=== PATIENT | female | born 1955 | race Caucasian/White ===

== ENCOUNTER 2019-12-13 12:28 | Observation (INO) | payer MEDICARE, SELFPAY ==
[2019-12-13] VITALS (15 sets, daily range): BP systolic 104–138; BP diastolic 53–82; PULSE 77–91; RESP 18–26; TEMP 36.3–36.8; O2SAT 93–98; BMI 35.7
--- NOTE | ~2019-12-13 | CT_ITS ---
EXAMINATION: CTA chest PE protocol EXAM DATE: 12/13/2019 13:59 INDICATION: Dyspnea. History pulmonary embolism. Unremarkable chest x-ray. TECHNIQUE: Spiral CTA of the chest (pulmonary arteries) was performed with 100 cc Omnipaque 350 intr avenous contrast injection. Images were acquired during the pulmonary arterial phase. Coronal maxi mum intensity projection 3D-reconstructions were created by the technologist on dedicated workstation . Axial, coronal and sagittal reformatted images were reviewed. The dose-length product (DLP) for t his examination was 835.67 mGy-cm. The exposure was tailored according to patient size (auto mA exp osure control), and iterative reconstruction (ASIR) was used as additional dose reduction technique. There is no prior study for comparison. FINDINGS: There are 3 right lower lobe segmental pulmonary emboli. No right heart strain. No thoraci c aortic dissection. Bibasilar subpleural banding, probably atelectasis. Mild emphysema. Mild bronch iectasis. There are no pleural or pericardial effusions. Tracheobronchial tree is patent. There is no mediastinal, hilar or axillary lymphadenopathy. There is no pneumothorax. Heart normal in s ize. No evidence of coronary arterial calcification. Upper abdomen is unremarkable. There is tho racic spondylosis without osteoblastic or osteolytic lesions identified. IMPRESSION: 1. Small right basilar segmental pulmonary emboli, low clot burden. 2. Subpleural banding, probably subsegmental atelectasis. 3. Mild emphysema and bronchiectasis. Reviewed, dictated and finalized at location A.
--- NOTE | ~2019-12-13 | XR_ITS ---
EXAMINATION: XR chest 2V EXAM DATE: 12/13/2019 13:10 INDICATION: Shortness of breath. TECHNIQUE: Frontal and lateral projections of the chest obtained and reviewed. Comparison is made to prior examination from 06/27/2019. FINDINGS: The lungs are clear. There are no pleural effusions. The cardiomediastinal silhouette is within normal limits. There is no pneumothorax suspected. The bones and soft tissues are unremarkab le. IMPRESSION: No acute cardiopulmonary findings. Reviewed, dictated and finalized at location A.
--- NOTE | ~2019-12-13 | US_ITS ---
EXAMINATION: US venous doppler [facility] DATE: 12/14/2019 11:16 INDICATION: Pulmonary embolism. TECHNIQUE: Grayscale ultrasound images without and with compression and Doppler ultrasound images of the bilateral lower extremity veins were obtained. COMPARISON: None. FINDINGS: Noncompressible deep venous thrombosis below the right knee in one of the paired right peroneal veins , both of the paired posterior tibial veins as well as the right soleus vein. The visualized portions of right common femoral vein, profunda (deep) femoral vein, femoral vein, popliteal vein, gastrocnem ius vein and greater saphenous vein outflow are patent. The visualized portions of left common femoral vein, profunda femoral vein, femoral vein, popliteal v ein, posterior tibial veins, peroneal veins, gastrocnemius vein and greater saphenous vein outflow ar e patent. 5.3 x 1.4 x 2.9 cm anechoic Ackerman's cyst at the left popliteal fossa. IMPRESSION: 1. Deep venous thrombosis below the right knee in the right peroneal, posterior tibial and soleal ve ins. No left-sided deep venous thrombosis. 2. Moderate-sized Ackerman cyst at the left popliteal fossa. Reviewed, dictated and finalized at location A. IMPRESSION: 1. Deep venous thrombosis below the right knee in the right peroneal, posterio r tibial and soleal veins. No left-sided deep venous thrombosis. 2. Moderate-sized Ackerman cyst at the left popliteal fossa.
--- NOTE | 2019-12-13 12:33 | ECG_ITS ---
Measurements Intervals [place] Rate: 89 P: 51 GA: 177 QRS: -4 QRSD: 93 T: 38 QT: 337 QTc: 410 Interpretive Statements SINUS RHYTHM INCOMPLETE RIGHT BUNDLE BRANCH BLOCK VOLTAGE CRITERIA FOR LVH INFERIOR INFARCT, AGE INDETERMINATE BASELINE ARTIFACT- II, III, AVF ABNORMAL ECG Electronically Signed On 12-13-2019 15:10:23 CDT by Javi Goode D.O.
[2019-12-13 12:54] LABS: Basophils Absolute Auto 0.1 K/mm3 (0.0-0.1); Basophils Percent Auto 0.6 % (0.2-1.2); Eosinophils Absolute Auto 0.3 K/mm3 (0-0.3); Eosinophils Percent Auto 1.6 % (0-4.4); Hematocrit 36.5 % (37.0-47.0); Hemoglobin 10.5 g/dL (12.0-15.0); Immature Granulocyte Absolute 0.19 K/mm3 (0.00-0.031); Immature Granulocyte Percent A 1.2 % (0-0.5); Lymphocytes Absolute Auto 2.15 K/mm3 (0.9-3.2); Lymphocytes Percent Auto 13.7 % (18.3-44.2); Mean Corpuscular HGB Conc 28.8 g/dl (32-36); Mean Corpuscular Hemoglobin 22.2 pg (26-34); Mean Corpuscular Volume 77.2 fl (80-100); Mean Platelet Volume 9.4 fl (7.4-10.4); Monocytes Absolute Auto 1.4 K/mm3 (0.1-0.6); Monocytes Percent Auto 8.8 % (2.6-8.5); Neutrophils Absolute Auto 11.7 K/mm3 (1.3-6.7); Neutrophils Percent Auto 74.1 % (45.5-73.1); Platelet Count Result 377 k/mm3 (150-375); Red Blood Count 4.73 M/mm3 (4.2-5.4); Red Cell Distribution Width 17.9 % (11.5-14.5); White Blood Count 15.8 K/mm3 (4.5-10.0)
[2019-12-13 12:59] LABS: Hypochromasia 1+ (NORMAL); Platelet Estimate Adequate (Adequate)
[2019-12-13 13:00] LABS: Ovalocytes 1+ (NORMAL); Poikilocytosis 1+ (NORMAL)
[2019-12-13 13:10] LABS: Blood Urea Nitrogen 18 mg/dL (7-17); Calcium 9.8 mg/dL (8.4-10.2); Carbon Dioxide 25 mmol/L (22-30); Chloride 105 mmol/L (98-107); Estimated CRCL calculation 62 ml/min; Estimated Glomerular Filt Rate > 60; Glucose 95 mg/dL (65-105); Potassium 4.6 mmol/L (3.4-5.0); Sodium 139 mmol/L (137-145)
--- NOTE | 2019-12-13 13:39 | ED.SOB ---
HPI - SOB/Dyspnea General Chief Complaint: Shortness of Breath/Dyspnea Stated Complaint: sob Time Seen by Provider: 12/13/19 13:10 Source: patient Mode of arrival: ambulatory Limitations: no limitations History of Present Illness HPI Narrative: Patient is a 64-year-old female who presents to the emergency department with complaint of shortness of breath. Patient notes having a syncopal episode associated with her shortness of breath. Patient is complaining of some mild low back pain that she intermittently has. She denies any chest pain, cough, fever, or symptoms while at rest. She notes the shortness of breath occurs with exertion such as walking from one room of her house to another. Patient denies any pulmonary or cardiac history. MD elicited complaint: shortness of breath Exacerbating factors: exertion Relieving factors: rest Associated symptoms: denies other symptoms Treatment prior to arrival: none Related Data Home Medications Medication Instructions Recorded Confirmed atorvastatin 12/13/19 bupropion HCl mg PO 12/13/19 buspirone 10 mg BID 12/13/19 12/13/19 escitalopram oxalate mg 12/13/19 fenofibrate mg 12/13/19 [id number]-lutein 1 tablet PO DAILY 12/13/19 12/13/19 [Multivitamin Women 50 Plus] oxybutynin chloride mg PO 12/13/19 pantoprazole PO 12/13/19 Allergies Allergy/AdvReac Type Severity Reaction Status Date / Time nitrofurantoin Allergy Intermediate CHILLS Verified 12/13/19 14:27 FEVER ITCHING NAUSEA, MOUTH SORES Sulfa (Sulfonamide Allergy Intermediate MOUTH SORE Verified 12/13/19 14:27 Antibiotics) HYDROCODONE BIT Allergy Intermediate MIGRAINE Uncoded 12/13/19 14:27 PROPOXYPHENE NAPSYLATE Allergy Intermediate MIGRAINE Uncoded 12/13/19 14:27 Review of Systems Review of Systems: All systems reviewed & are unremarkable except as noted in HPI and below Constitutional: Constitutional: Denies chills and Denies fever(s) Cardiovascular: Cardiovascular: Denies chest pain Respiratory: Respiratory: Denies cough and Reports dyspnea Gastrointestinal: Gastrointestinal: Denies nausea and Denies vomiting PMFSH Past Medical History Medical History (Updated 12/13/19 @ 15:22 by Shayla Joyner MD) Anxiety Depression Hyperlipidemia Osteoarthritis Surgical History Surgical History (Updated 12/13/19 @ 13:46 by Shayla Joyner MD) History of bilateral hip replacements History of hysterectomy Family History Family History (Updated 02/05/17 @ 15:47 by DOCTOR UNKNOWN) Father Family history of alcoholism Mother Cerebrovascular accident Other Family history of arthritis Hypertension Social History Social History Smoking status: Never smoker Alcohol intake: current Exam Const: General: cooperative, no acute distress and alert Nutritional Appearance: obese morbidly obese Orientation/consciousness: patient oriented x3 Limitations: no limitations Resp: Effort & Inspection: normal respiratory effort Auscultation: clear to auscultation bilaterally Cardio: Rate: regular rate Rhythm: regular rhythm GI: GI Palp: Yes Soft to palpation and No Tenderness to palpation present (GI) Auscultation: normal bowel sounds Skin: General skin exam: normal color Neuro: General: patient oriented x3 Cognition (Neuro): normal cognition Speech: normal speech Extrem: General: normal to inspection, full ROM and no clubbing, cyanosis or edema Psych: Mental Status: mental status grossly normal Affect: normal affect Attitude: cooperative Course Course Emergency Course: Patient with findings of pulmonary emboli on CT. Lovenox initiated in the emergency department and patient admitted to hospitalist service for further care. Patient advised of diagnosis and admission plan. Vital signs have remained stable and patient is satting in the low 90s on room air. Consultations Consultation #1: Case discussed with ALESHA Zhao for the ho
--- NOTE | 2019-12-13 14:05 | PC.NURSE ---
Called lab to add on Trop I Baseline and BNP.
[2019-12-13] MEDS: ENOXAPARIN 100 MG/ML SYRINGE 97.5 MG SUB-Q (14:22)
--- NOTE | 2019-12-13 16:05 | PM.IMHP ---
H&P: HPI History of Present Illness Chief complaint: Syncopal episode. Narrative: Maddie Abdi is a 64-year-old female with history of DVT and pulmonary embolism in 2001 and 2002 respectively after surgeries status post IVC filter insertion who presented to the emergency department earlier this afternoon from home for evaluation after a syncopal episode. Not long prior to arrival, she was walking into the bathroom when she began to feel lightheaded and ?everything went black.? She proceeded to have a syncopal episode, falling forward and injuring her right upper lip. In the emergency department, she admitted that she has been feeling short of breath since Saturday, mainly with exertion. She was found to have a small right basilar segmental pulmonary embolism, and is being admitted in this setting. As above, she reports an IVC filter in situ however the presence of such is not mentioned on the CT today. She does not believe that she had it removed, so I will have to go back and review the CT. In any event, her previous clots were in the postoperative setting. No recent travel. She does mention being more sedentary since the retirement in place order. She denies lower extremity edema, calf pain and tenderness. Weight has remained stable, in fact she thinks she may have gained some weight. No history of malignancy. It is noted that she has a microcytic anemia and she reports no history of such. She does mention being seen in emergency department June 2019 with chest pain, and that was attributed to GERD. She continues to have those symptoms to this day, for which she is taking pantoprazole She had a colonoscopy years ago which was unremarkable.. She denies epistaxis, gingival bleeding, hemoptysis, melena, hematochezia, vaginal bleeding, and hematuria. She does not use NSAIDs. She denies significant caffeine and alcohol intake. Review of Systems Review of Systems: Narrative: Twelve systems were reviewed with pertinent positives and negatives as per HPI. No fever, chills, or sweats. No recent cold or flu symptoms. She denies cough. No history of cardiac disease. No pleuritic pain. She denies nausea, vomiting, and diarrhea. Except as documented, all other systems were reviewed and are negative. [facility] Past Medical History Medical History (Updated 12/13/19 @ 21:38 by Milagros Brush PA-C) Anxiety Depression DVT (deep venous thrombosis) In 2001 after bunionectomy. GERD (gastroesophageal reflux disease) Hidradenitis Excision of hidradenitis from the left thigh in 2012. Hyperlipidemia Kidney stones Osteoarthritis Pulmonary embolism In 2002 after right hip replacement. Skin cancer MARLENE (stress urinary incontinence, female) Surgical History Surgical History (Updated 12/13/19 @ 21:34 by Milagros Brush PA-C) History of appendectomy History of bilateral hip replacements Right in 2002. Left in 2010. History of bunionectomy History of cataract extraction History of cholecystectomy History of hysterectomy Family History Family History Father Family history of alcoholism Mother Cerebrovascular accident Other Family history of arthritis Hypertension Social History Social History (Updated 12/13/19 @ 21:34 by Milagros Brush PA-C) Social History: The patient is and lives with her in [place]. She designates her , Chris, as her surrogate decision maker and she wishes to be a full code. She is a lifelong nonsmoker and denies alcohol and illicit substance use. Spiritual care concerns: No Agree to blood products: Yes Meds Home Medications and Allergies Home Medications Medication Instructions Recorded Confirmed Type atorvastatin 40 mg DAILY 12/13/19 12/13/19 History bupropion HCl 300 mg PO DAILY 12/13/19 12/13/19 History buspirone 10 mg BID 12/13/19 12/13/19 History escitalopram oxalate 20 mg DAILY 11/24
--- NOTE | 2019-12-13 16:27 | ADMGEN ---
This patient, Maddie Abdi, was admitted to [facility] Surg Room 321-01 at 1530. Patient/family oriented to hospital policies and general routines including ID bracelet, bed and alarms, visiting hours, pain management, procedures, bathroom and other care routines, personal items, smoking policy, room service/diet, and visiting hours. Valuables list has been completed. Information on how to activate the Rapid Response Team has been discussed. Patient/Family are encouraged to report perceived risks to care and to ask questions if they do not understand what they are told or what they should do.
[2019-12-13 16:34] LABS: NT Pro B Type Natriuretic Pept 101 PG/ML (5-100); Troponin I < 0.012 ng/mL (0.000-0.034)
[2019-12-13 19:11] LABS: Troponin I < 0.012 ng/mL (0.000-0.034)
[2019-12-13 20:22] LABS: IFOB Positive Control Positive; Immunochemical Fecal Occult Bl Negative (N)
[2019-12-13 23:54] LABS: Folic Acid > 20.0 ng/mL (2.76->20); Vitamin B12 > 1000.0 pg/mL (239-931)
[2019-12-14] VITALS: PULSE 78
--- NOTE | 2019-12-14 | ECHO_ITS ---
Patient Info Name: Maddie Abdi Age: 64 years : 1955 Gender: Female Ht: 65 in Wt: 215 lbs BSA: 2.16 m2 HR: 76 bpm BP: 125 / 59 mmHg Heart Rhythm: Sinus Rhythm Technical Quality: Fair Exam Date: 12/14/2019 1:15 PM Exam Location: [facility] Card Pulmonary Patient Status: Inpatient Admit Date: 12/13/2019 Staff Ordering Physician: Milagros Brush PA-C Design Printer Balloon: Chris Carey RDCS Attending Provider: Alondra Truong PA-C Referring Physician: Trudi OBRIEN; Exam Type: CA echo doppler color flow Study Info Indications I26.99 - Other pulmonary embolism without acute cor pulmonale Complete two-dimensional, color flow and Doppler transthoracic echocardiogram is performed. History/Risk Factors Pulmonary embolism; DVT, HTN, syncope. Summary 1. Left ventricular chamber dimension is normal. 2. Left ventricular systolic function is normal, estimated at 55-60%. 3. No significant valvular disease. Left Ventricle Left ventricular chamber dimension is normal. Left ventricular systolic function is normal, estimated at 55-60%. The left ventricular diastolic function is grade I diastolic dysfunction. Right Ventricle Right ventricular chamber dimension is normal. Left Atria Left atrial chamber dimension is normal. Right Atria Right atrial chamber dimension is normal. Aortic Valve The aortic valve is normal. Pulmonic Valve The pulmonic valve is not well visualized. Mitral Valve The mitral valve has normal leaflets. Tricuspid Valve The tricuspid valve leaflets are normal. Pericardium/Pleural The pericardium appears normal. Aorta The aortic root size at the sinus of Valsalva is normal. Left Ventricular Outflow Tract Name Value Normal LVOT 2D LVOT Diameter 1.8 cm LVOT Doppler LVOT Peak Gradient 6 mmHg LVOT Mean Gradient 3 mmHg LVOT VTI 24 cm LVOT VTI/AV VTI Ratio 0.8 LVOT Stroke Volume 65 ml LVOT CO 5.2 l/min LVOT CI 2.4 l/min/m2 Mitral Valve Name Value Normal MV Doppler MV Decel Cooper 413 cm/s2 MV PHT 52 ms MV Area (PHT) 4.2 cm2 4.0-5.0 MV Diastolic Function MV E Peak Velocity 74 cm/s MV A Peak Velocity 92 cm/s MV E/A 0.8 MV Decel Time 179 ms MV Annular TDI MV E/e' (Septal) 10.8 <=8.0 MV E/e
[2019-12-14] MEDS: ENOXAPARIN 100 MG/ML SYRINGE 97.5 MG SUB-Q ×2 (02:03→15:11)
[2019-12-14 04:00] VITALS: PULSE 74
[2019-12-14 06:00] VITALS: BP 125/59; PULSE 72; RESP 22; TEMP 37.1; O2SAT 93
[2019-12-14 06:03] LABS: Prothrombin Time 13.3 Seconds (11.1-14.7)
[2019-12-14 06:04] LABS: Partial Thromboplastin Time 32.5 SECONDS (22.3-36.8)
[2019-12-14 06:08] LABS: Hematocrit 31.3 % (37.0-47.0); Hemoglobin 9.3 g/dL (12.0-15.0); Mean Corpuscular HGB Conc 29.7 g/dl (32-36); Mean Corpuscular Hemoglobin 22.4 pg (26-34); Mean Corpuscular Volume 75.4 fl (80-100); Mean Platelet Volume 9.4 fl (7.4-10.4); Platelet Count Result 338 k/mm3 (150-375); Red Blood Count 4.15 M/mm3 (4.2-5.4); Red Cell Distribution Width 17.8 % (11.5-14.5); White Blood Count 11.9 K/mm3 (4.5-10.0)
[2019-12-14 06:12] LABS: Alanine Aminotransferase 22 U/L (4-35); Albumin Level 3.7 g/dL (3.5-5.1); Alkaline Phosphatase 74 U/L (38-126); Aspartate Amino Transferase 28 U/L (14-36); Bilirubin,Total 0.2 mg/dL (0.2-1.3); Blood Urea Nitrogen 14 mg/dL (7-17); Calcium 9.2 mg/dL (8.4-10.2); Carbon Dioxide 27 mmol/L (22-30); Chloride 106 mmol/L (98-107); Estimated CRCL calculation 79 ml/min; Estimated Glomerular Filt Rate > 60; Glucose 81 mg/dL (65-105); Potassium 4.2 mmol/L (3.4-5.0); Sodium 137 mmol/L (137-145)
[2019-12-14 06:21] LABS: Iron 30 ug/dL (37-170)
[2019-12-14 06:30] LABS: Percent Iron Saturation 6 % (20-50)
[2019-12-14 06:57] LABS: Ferritin 7.49 ng/mL (11.1-264)
[2019-12-14 08:00] VITALS: PULSE 115
[2019-12-14] MEDS: buPROPion HCL XL (24 HR) 150 MG TABCR 300 MG PO (08:51)
[2019-12-14] MEDS: ATORVASTATIN 40 MG TABLET PO (08:51)
[2019-12-14] MEDS: busPIRone HCL 10 MG TABLET PO (08:51)
[2019-12-14] MEDS: FENOFIBRATE 160 MG TABLET PO (08:54)
[2019-12-14] MEDS: THERAPEUTIC MULTIVITAMINS/MINERALS TAB (*BKC) 1 TABLET PO (08:54)
[2019-12-14] MEDS: ESCITALOPRAM OXALATE 10 MG TABLET 20 MG PO (08:54)
[2019-12-14 12:00] VITALS: PULSE 78
[2019-12-14] MEDS: ACETAMINOPHEN 325 MG TABLET 650 MG PO (12:45)
[2019-12-14 14:00] VITALS: BP 102/74; PULSE 93; RESP 16; TEMP 36.9; O2SAT 92
--- NOTE | 2019-12-14 15:09 | PM.DS ---
DS: Diagnosis Admitting Diagnosis Admitting Diagnosis: Other pulmonary embolism without acute cor pulmonale Discharge Diagnosis (1) Pulmonary embolism: Code(s): I26.99 - Other pulmonary embolism without acute cor pulmonale Status: Acute Assessment and Plan: The patient was found to have a DVT to her right peroneal, posterior tibial and soleal veins. No left sided DVT. PE Caused by DVT and most likely increased sedentary lifestyle recently. She was initially started on Lovenox Q12hrs by weight for treatment of PE/DVT and it will cost her $47 per month for Eliquis through her insurance which the patient states will be okay. The patient is feeling well at this time and is asymptomatic. She was slightly tachycardic with exertion which will improve with continued PE/DVT treatment. No further syncopal episodes, lightheadedness, dizziness and shortness of breath has improved. (2) DVT (deep venous thrombosis): Code(s): I82.409 - Acute embolism and thrombosis of unspecified deep veins of unspecified lower extremity Status: Acute Assessment and Plan: See above under PE. (3) Syncope: Code(s): R55 - Syncope and collapse Status: Acute Assessment and Plan: Possibly related to PE/DVT Echocardiogram showed Left ventricular chamber dimension is normal. Left ventricular systolic function is normal, estimated at 55-60%. No significant valvular disease. Telemetry showed normal sinus rhythm with a heart rate of 80, with a few episodes where her heart rate went into the 120s to 140s most likely with exertion. This is again most likely secondary to PE/DVT. No further arrhythmia abnormality infection noted. (4) Microcytic anemia: Code(s): D50.9 - Iron deficiency anemia, unspecified Status: Acute Assessment and Plan: Was found to have iron deficiency anemia and was given IV Venofer today will be placed on oral ferrous sulfate twice a day and have her follow-up with her primary care provider and recheck a CBC in 1 week. H&H has otherwise been stable while here. Negative Hemoccult stool. Normal vitamin B12 and folic acid. (5) Bronchiectasis: Code(s): J47.9 - Bronchiectasis, uncomplicated Status: Acute Assessment and Plan: Mild emphysema and bronchiectasis noted on CT today. Lungs are otherwise clear to auscultation today with no wheezing. Follow-up as outpatient. (6) GERD (gastroesophageal reflux disease): Code(s): K21.9 - Gastro-esophageal reflux disease without esophagitis Status: Acute Assessment and Plan: Continue pantoprazole. (7) Hyperlipidemia: Code(s): E78.5 - Hyperlipidemia, unspecified Status: Acute Assessment and Plan: Continue atorvastatin and fenofibrate. DS: Summary Hospital Course Reason for hospitalization: Patient is a 64-year-old woman with a history of DVT and PE after prior joint replacement surgeries, with IVC filter in place, who presented to the emergency department with increased dyspnea on exertion for the last 5 days and 2 syncopal episode prior to arrival. Initial vitals showed temperature of 97.3?, blood pressure 104/82, heart rate 80, respiratory rate 18, oxygen saturation 98% on room air. Initial labs showed leukocytosis at 15,800, microcytic anemia with a hemoglobin of 10.5 and hematocrit of 36.5, normal BMP, normal troponin. BNP 101. Patient had a CTA performed which showed a small right basilar segmental pulmonary embolism, low clot burden. She was admitted into the hospital for further evaluation of pulmonary embol
== END 2019-12-14 17:00 | disposition home or self-care (01) ==
LOC: ANHED 13:43 → ANH3MEDSUR 14:46
PROVIDERS: Physician Assistant; Admitting Provider Internal Medicine; Emergency Provider Emergency Medicine; PCP Family Medicine Adolescent Medicine; Visit Provider Physician Assistant
DX: I26.99 Other pulmonary embolism without acute cor pulmonale (principal); I82.451 Acute embolism and thrombosis of right peroneal vein; R55 Syncope and collapse; D50.9 Iron deficiency anemia, unspecified; J47.9 Bronchiectasis, uncomplicated; J43.9 Emphysema, unspecified; K21.9 Gastro-esophageal reflux disease without esophagitis; E78.5 Hyperlipidemia, unspecified; Z86.711 Personal history of pulmonary embolism; Z86.718 Personal history of other venous thrombosis and embolism; Z96.643 Presence of artificial hip joint, bilateral
CPT/HCPCS: 36415; 71046; 71275; 80048; 80053; 82274; 82607; 82728; 82746; 83540; 83550; 83880; 84484; 85025; 85027; 85610; 85730; 93005; 93306; 93970; 96372; 96374; 99285; A9270; G0378; J1650; J1756; Q9967

== ENCOUNTER → 2021-02-17 14:41 | Outpatient (CLI) | payer MEDICARE, SELFPAY ==
--- NOTE | ~2021-02-17 | XR_ITS ---
XR chest 2V 02/17/2021 15:01 Indication: Dyspnea with exertion Procedure: 2 view chest Comparison: 12/13/2019 Findings: Heart size normal. No focal air space disease, pulmonary edema, pleural effusion or suspect ed pneumothorax. No acute osseous abnormality. Impression: 1: No acute cardiopulmonary disease. Reviewed, dictated and finalized at location B. Impression: 1: No acute cardiopulmonary disease.
== END ==
PROVIDERS: PCP Family Medicine Adolescent Medicine; Visit Provider Family Medicine Adolescent Medicine
DX: R06.09 Other forms of dyspnea (principal)
CPT/HCPCS: 71046

== ENCOUNTER 2021-03-15 12:22 | Outpatient (CLI) | payer MEDICARE, SELFPAY ==
--- NOTE | 2021-03-15 16:24 | WPDPFTINT ---
PFT Procedure Performed PFT Procedure Performed Plethysmography (Lung Vol) Diffusing Cap (DLCO) Flow Vol Loop Spirometry w/o Bronchodil PFT Interpretation This is a pulmonary function test with spirometry, plethysmography and diffusing capacity. The test was performed and results interpreted in accordance with the 2019 and 2005 ATS/ERS Task Force guidelines respectively using the Global Lung Function Initiative-2012 reference equations. Patient demonstrated good effort and cooperation. Reproducibility criteria were met. The quality of the spirometry maneuver was Grade A. Findings: Spirometry: The contour the expiratory flow tracing resembles that of a witch's hat . the contour the inspiratory flow tracing is normal. The FVC is 2.23 L, 73% predicted. The FEV1 is 1.85 L, 78% predicted. The FEV1: FVC ratio was 83%. Plethysmography: The total lung capacity is 3.54 L, 68% predicted. The functional residual capacity is 1.56 L, 52% predicted. The residual volume is 1.18 L, 54% predicted. Diffusing capacity: The absolute diffusion capacity is 14.0, 66% predicted. The diffusing capacity corrected for alveolar volume is 4.17, 97% predicted. Impression: There is a mild restrictive ventilatory abnormality with a normal FEV1. The spirometry is normal without evidence of an obstructive abnormality. The absolute diffusing capacity is mildly decreased and normalizes when corrected for alveolar volume. There are no prior studies for comparison
== END 2021-03-15 12:23 | disposition home or self-care (01) ==
LOC: ANHPFT 12:25
PROVIDERS: PCP Family Medicine Adolescent Medicine; Visit Provider Family Medicine Adolescent Medicine
DX: R06.09 Other forms of dyspnea (principal); R94.2 Abnormal results of pulmonary function studies
CPT/HCPCS: 94375; 94726; 94729

== ENCOUNTER 2021-04-11 03:04 | Day surgery (SDC) | payer MEDICARE, SELFPAY ==
[2021-04-04 14:04] VITALS: BMI 34.8
[2021-04-11 08:32] VITALS: BP 139/62; PULSE 93; RESP 18; TEMP 35.7; O2SAT 95
[2021-04-11] MEDS: LACTATED RINGERS 1,000 ML 150 ML IV CONT (08:38)
--- NOTE | 2021-04-11 09:37 | WPDANESEPPF ---
Anes - Initial Pre Proc Eval Procedure: Operation Date: 04/11/21 09:45 Proposed Procedures p Esophagogastroduodenoscopy & Colonoscopy - Abdiel Welch MD Date/Time: 04/11/21 09:37 Surgeon: Abdiel Welch MD Pre Op Diagnosis: occult GI bleed Patient Data Age: 65 Gender: F Height: 1.65 m Weight: 92 kg Last Vital Signs Temp 96.2 F L 04/11/21 08:32 Pulse 93 04/11/21 08:32 Resp 18 04/11/21 08:32 BP 139/62 04/11/21 08:32 Pulse Ox 95 04/11/21 08:32 Allergies Allergy/AdvReac Type Severity Reaction Status Date / Time hydrocodone Allergy Intermediate Migraine Verified 04/11/21 08:35 propoxyphene Allergy Intermediate Migraine Verified 04/11/21 08:35 Sulfa (Sulfonamide Allergy Intermediate MOUTH SORE Verified 04/11/21 08:29 Antibiotics) Home Medications Medication Instructions Recorded Confirmed Type Multivitamin Women 50 Plus 1 tablet PO DAILY 12/13/19 04/11/21 History atorvastatin 40 mg PO DAILY 12/13/19 04/11/21 History bupropion HCl 300 mg PO DAILY 12/13/19 04/11/21 History buspirone 10 mg PO BID 12/13/19 04/11/21 History escitalopram oxalate 20 mg PO DAILY 12/13/19 04/11/21 History fenofibrate 160 mg PO DAILY 12/13/19 04/11/21 History oxybutynin chloride 15 mg PO DAILY 12/13/19 04/11/21 History pantoprazole 40 mg PO BID 12/13/19 04/11/21 History ferrous sulfate [Feosol] 325 mg PO DAILY 04/04/21 04/11/21 History metoclopramide HCl 10 mg PO HS 04/04/21 04/11/21 History nitroglycerin 0.4 mg SUBLINGUAL HS PRN 04/04/21 04/11/21 History Patient hx anesthesia problems: none Family hx anesthesia problems: none PMFSH Past Medical History Medical History (Updated 12/14/19 @ 15:09 by Alondra Frances PA-C) Anxiety Depression DVT (deep venous thrombosis) In 2001 after bunionectomy. GERD (gastroesophageal reflux disease) Hidradenitis Excision of hidradenitis from the left thigh in 2012. Hyperlipidemia Kidney stones Osteoarthritis Pulmonary embolism In 2002 after right hip replacement. Skin cancer MARLENE (stress urinary incontinence, female) Surgical History Surgical History (Updated 12/13/19 @ 21:34 by Milagros Brush PA-C) History of appendectomy History of bilateral hip replacements Right in 2002. Left in 2010. History of bunionectomy History of cataract extraction History of cholecystectomy History of hysterectomy Family History Family History Father Family history of alcoholism Mother Cerebrovascular accident Other Family history of arthritis Hypertension Social History Social History (Updated 12/13/19 @ 21:34 by Milagros Brush PA-C) Social History: The patient is and lives with her in [place]. She designates her , Chris, as her surrogate decision maker and she wishes to be a full code. She is a lifelong nonsmoker and denies alcohol and illicit substance use. Smoking status: Never smoker Alcohol intake: never Substance use: never Substance use type: does not use Living arrangements: with family Spiritual care concerns: No Agree to blood products: Yes Anes - Eval Final PreProcedure Day of Procedure 04/11/21 09:37 Patient weight: obese Heart: regular rate and rhythm Lungs: clear to auscultation Airway: Mallampati scale class III Neurological: alert and oriented Last oral intake: >/= 8 hours ASA classification: III Emergent: no Anesthetic plan: proceed Anesthesia type and monitoring: general GIVS and standard monitoring Informed Consent: The patient's anesthetic plan and its attendant risks and benefits were discussed with the patient/family/POA. Questions were solicited and answers provided to the satisfaction of the patient/family/POA.
--- NOTE | 2021-04-11 09:51 | PM.HPGS ---
History of Present Illness History of Present Illness Consent: Risks, benefits, and alternatives have been discussed and questions answered. Patient agrees to proceed with procedure. Chief complaint: occult GI bleed Narrative: Maddie Abdi is a 65 year old female with mild GIN and FOBT +, on pantoprazole for 1 year because esophageal spasm but never had EGD, last colonoscopy 7 years ago. Denies overt gib Review of Systems Constitutional: Constitutional: Denies headache(s) and Denies weakness Eyes: Eyes: Denies blurry vision ENT: Reports Normal hearing present, Denies headache(s) and Denies neck pain Cardiovascular: Cardiovascular: Denies chest pain and Denies dyspnea Respiratory: Respiratory: Denies dyspnea Gastrointestinal: Gastrointestinal: Reports no additional gastrointestinal complaints Genitourinary: Genitourinary: Denies dysuria Musculoskeletal: Musculoskeletal: Denies neck pain Integumentary/Breasts: Skin/Breast: Denies dry skin Neurologic: Reports Normal hearing present, Denies headache(s) and Denies weakness Psychiatric: Psychiatric: Denies anxiety Endocrine: Endocrine: Denies change in body appearance Hematologic/Lymphatic: Hematologic/Lymphatic: Denies easy bleeding Allergic/Immunologic: Allergic/Immunologic: Denies urticaria PMF Past Medical History Medical History (Updated 04/11/21 @ 09:52 by Abdiel Welch MD) Anxiety Depression DVT (deep venous thrombosis) In 2001 after bunionectomy. GERD (gastroesophageal reflux disease) Hidradenitis Excision of hidradenitis from the left thigh in 2012. Hyperlipidemia Kidney stones Occult blood in stools Osteoarthritis Pulmonary embolism In 2002 after right hip replacement. Skin cancer MARLENE (stress urinary incontinence, female) Surgical History Surgical History (Updated 12/13/19 @ 21:34 by Milagros Brush PA-C) History of appendectomy History of bilateral hip replacements Right in 2002. Left in 2010. History of bunionectomy History of cataract extraction History of cholecystectomy History of hysterectomy Family History Family History Father Family history of alcoholism Mother Cerebrovascular accident Other Family history of arthritis Hypertension Social History Social History (Updated 12/13/19 @ 21:34 by Milagros Brush PA-C) Social History: The patient is and lives with her in [place]. She designates her , Chris, as her surrogate decision maker and she wishes to be a full code. She is a lifelong nonsmoker and denies alcohol and illicit substance use. Smoking status: Never smoker Alcohol intake: never Substance use: never Substance use type: does not use Living arrangements: with family Spiritual care concerns: No Agree to blood products: Yes Meds Home Medications and Allergies Home Medications Medication Instructions Recorded Confirmed Type Multivitamin Women 50 Plus 1 tablet PO DAILY 12/13/19 04/11/21 History atorvastatin 40 mg PO DAILY 12/13/19 04/11/21 History bupropion HCl 300 mg PO DAILY 12/13/19 04/11/21 History buspirone 10 mg PO BID 12/13/19 04/11/21 History escitalopram oxalate 20 mg PO DAILY 12/13/19 04/11/21 History fenofibrate 160 mg PO DAILY 12/13/19 04/11/21 History oxybutynin chloride 15 mg PO DAILY 12/13/19 04/11/21 History pantoprazole 40 mg PO BID 12/13/19 04/11/21 History ferrous sulfate [Feosol] 325 mg PO DAILY 04/04/21 04/11/21 History metoclopramide HCl 10 mg PO HS 04/04/21 04/11/21 History nitroglycerin 0.4 mg SUBLINGUAL HS PRN 04/04/21 04/11/21 History Allergies Allergy/AdvReac Type Severity Reaction Status Date / Time hydrocodone Allergy Intermediate Migraine Verified 04/11/21 08:35 propoxyphene Allergy Intermediate Migraine Verified 04/11/21 08:35 Sulfa (Sulfonamide Allergy Intermediate MOUTH SORE Verified 04/11/21 08:29 Antibiotics) Vital Sig
[2021-04-11 10:47] VITALS: BP 99/51; PULSE 70; RESP 28; O2SAT 95
[2021-04-11 10:57] VITALS: BP 120/73; PULSE 68; RESP 20; O2SAT 95
[2021-04-11 11:07] VITALS: BP 124/78; PULSE 71; RESP 22; O2SAT 98
== END 2021-04-11 11:23 | disposition home or self-care (01) ==
PROVIDERS: PCP Family Medicine Adolescent Medicine; Visit Provider Internal Medicine Gastroenterology
PROC: 0DJ08ZZ Inspection of Upper Intestinal Tract, Via Natural or Artificial Opening Endoscopic (ICD-10-PCS; CPT 43235; principal; 2021-04-11 09:45)
DX: D50.9 Iron deficiency anemia, unspecified (principal); R19.5 Other fecal abnormalities; D12.2 Benign neoplasm of ascending colon; D12.5 Benign neoplasm of sigmoid colon; K29.50 Unspecified chronic gastritis without bleeding; K57.30 Diverticulosis of large intestine without perforation or abscess without bleeding; K64.8 Other hemorrhoids; K21.9 Gastro-esophageal reflux disease without esophagitis; E78.5 Hyperlipidemia, unspecified; M19.90 Unspecified osteoarthritis, unspecified site; F32.9 Major depressive disorder, single episode, unspecified; F41.9 Anxiety disorder, unspecified; Z86.718 Personal history of other venous thrombosis and embolism; Z86.711 Personal history of pulmonary embolism; Z87.442 Personal history of urinary calculi; Z90.49 Acquired absence of other specified parts of digestive tract; Z90.710 Acquired absence of both cervix and uterus; Z98.49 Cataract extraction status, unspecified eye
CPT/HCPCS: 45385; 43239; 88305; J7120

== ENCOUNTER 2021-10-02 09:56 | Outpatient (CLI) | payer MEDICARE, SELFPAY ==
--- NOTE | ~2021-10-02 | XR_ITS ---
XR chest 2V DATE: 10/02/2021 11:29 INDICATION: Shortness of breath for 2 months. Nonsmoker. TECHNIQUE: PA and lateral views COMPARISON: 02/17/2021 2 view chest FINDINGS: Normal heart size. There is mild elevation of the left leaf of the diaphragm. There is mild bibasilar atelectasis. The lungs otherwise appear clear. No pleural effusion or pulmonary vascular congestion or pneumothorax. Diffuse osteopenia. There is degenerative spurring and mild scoliosis of the thoracic and lumbar spine. IMPRESSION: Mild bibasilar atelectasis Reviewed, dictated and finalized at location A. LOADER IMPRESSION: Mild bibasilar atelectasis
--- NOTE | ~2021-10-02 | NM_ITS ---
EXAMINATION: NM pulmonary perfusion DATE: 10/02/2021 11:57 INDICATION: Shortness of breath. TECHNIQUE: 5.5 mCi Tc-99m MAA by intravenous route. Scintigraphic images of the chest were obtained. COMPARISON: Chest radiograph dated 10/02/2021 FINDINGS: There is relatively homogeneous perfusion throughout the lungs. No discrete perfusion defects identi fied. IMPRESSION: 1. Low probability for pulmonary embolism. Reviewed, dictated and finalized at location A. T OPERATOR HELPER
--- NOTE | 2021-10-02 13:18 | WPDPFTINT ---
PFT Procedure Performed PFT Procedure Performed Spirometry with Pre/Post Bronchodilator Plethysmography (Lung Vol) Diffusing Cap (DLCO) Flow Vol Loop PFT Interpretation Lung volumes were measured with the body plethysmography method. The diminished lung volumes are indicative of restrictive respiratory disease. Spirometry showed normal expiratory flow rates, and a normal FEV1 to FVC ratio of 85%. Following administration of a bronchodilator, there was no significant increase in expiratory flow rates. Lung diffusion capacity is borderline normal at 77% predicted. The flow volume loop is consistent with a restrictive respiratory disease. Impression: Mild restrictive respiratory disease. Lung diffusion capacity borderline normal.
--- NOTE | 2021-10-02 13:20 | WPDSIXMINUTE ---
Six Minute Walk Procedure Procedure Performed Pulmonary Stress Test (6 min walk) Six Minute Walk The 6 minute walk test was carried out with the patient breathing ambient air. The pre walk oxyhemoglobin saturation was 92%. The patient was able to walk for only 5 minutes due to shortness of breath. The walked distance was 213 meters. During the walk the oxyhemoglobin saturation remained over 91%. Impression: Incomplete testing due to shortness of breath. No oxyhemoglobin desaturation noted.
== END 2021-10-02 09:57 | disposition home or self-care (01) ==
LOC: ANHPFT 09:59
PROVIDERS: PCP Family Medicine Adolescent Medicine; Visit Provider Internal Medicine Critical Care Medicine
DX: R06.02 Shortness of breath (principal); R94.2 Abnormal results of pulmonary function studies; J98.11 Atelectasis
CPT/HCPCS: 71046; 78580; 94060; 94618; 94726; 94729; A9540

== ENCOUNTER 2021-10-12 09:42 | Outpatient (CLI) | payer MEDICARE, SELFPAY ==
--- NOTE | ~2021-10-12 | XR_ITS ---
EXAMINATION: XR barium swallow modified DATE: 10/12/2021 10:33 INDICATION: Shortness of breath TECHNIQUE: Modified barium esophagram was performed by myself to administered fluoroscopy, in conjun ction with speech pathologist who administered barium in varying consistencies as per speech patholog ist documentation. This was recorded on tape. A single fluoroscopic spot image was recorded. The DAP for this procedure was 0.830 Gycm2. Fluoroscopy exposure time was 1.1 minutes. FINDINGS: Oral stage: Adequate function. Pharyngeal phase: Adequate function. Laryngeal penetration: None. Aspiration: None. Laryngeal sensitivity: Not applicable. IMPRESSION: Normal modified barium swallow. Please refer to speech pathologist findings and specific feeding recommendations. Reviewed, dictated and finalized at location A. ERATURE INSPECTOR
--- NOTE | 2021-10-13 11:10 | STOPEVAL ---
MODIFIED BARIUM SWALLOW STUDY Thank you for referring Maddie Abdi to [facility].? Attending Provider: Ilda Krause MD Therapy Assessment Status Assessment Status Assessment Status Evaluation Outpatient Past Medical History Past Medical History No Past Medical/Surgical History Patient/Family Denies Significant Past Medical/ Surgical History Pain Assessment Timing of Pain Assessment Timing of Pain Assessment Assessment Self Report Self Report Pain Level 0 Pain Score Pain Score 0: Self Report Modified Barium Swallow Evaluation Consistency Solid Consistency 5 mL Method of Presentation Spoon Oral Preparatory Symptoms Within Functional Limits Oral Phase Symptoms Within Functional Limits Pharyngeal Phase Symptoms Within Functional Limits Severity of Vallecular Residue None - 0% No Residue Severity of Pyriform Sinus Residue None - 0% No Residue 8 Point Laryngeal Penetration-Aspiration Material Does Not Enter Airway Scale Cervical/Esophageal Symptoms Within Functional Limits Mixed Consistency 5 mL Method of Presentation Spoon Oral Preparatory Symptoms Within Functional Limits Oral Phase Symptoms Within Functional Limits Pharyngeal Phase Symptoms Within Functional Limits Severity of Vallecular Residue None - 0% No Residue Severity of Pyriform Sinus Residue None - 0% No Residue 8 Point Laryngeal Penetration-Aspiration Material Does Not Enter Airway Scale Cervical/Esophageal Symptoms Within Functional Limits Pureed Consistency 5 mL Method of Presentation Spoon Oral Preparatory Symptoms Within Functional Limits Oral Phase Symptoms Within Functional Limits Pharyngeal Phase Symptoms Within Functional Limits Severity of Vallecular Residue None - 0% No Residue Severity of Pyriform Sinus Residue None - 0% No Residue 8 Point Laryngeal Penetration-Aspiration Material Does Not Enter Airway Scale Cervical/Esophageal Symptoms Within Functional Limits Pureed Consistency 3 mL Method of Presentation Spoon Oral Preparatory Symptoms Within Functional Limits Oral Phase Symptoms Within Functional Limits Pharyngeal Phase Symptoms Within Functional Limits Severity of Vallecular Residue None - 0% No Residue Severity of Pyriform Sinus Residue None - 0% No Residue 8 Point Laryngeal Penetration-Aspiration Material Does Not Enter Airway Scale Cervical/Esophageal Symptoms Within Functional Limits Thin Uncontrolled 1 Method of Presentation Cup Oral Preparatory Symptoms Within Functional Limits Oral Phase Symptoms Within Functional Limits Pharyngeal Phase Symptoms Within Functional Limits Severity of Vallecular Residue None - 0% No Residue Severity of Pyriform Sinus Residue None - 0% No Residue 8 Point Laryngeal Penetration-Aspiration M
== END 2021-10-12 09:43 | disposition home or self-care (01) ==
PROVIDERS: PCP Family Medicine Adolescent Medicine; Visit Provider Internal Medicine Critical Care Medicine
DX: R06.02 Shortness of breath (principal)
CPT/HCPCS: 92611

== ENCOUNTER → 2022-08-13 11:20 | Outpatient (CLI) | payer MEDICARE, SELFPAY ==
--- NOTE | ~2022-08-13 | XR_ITS ---
Left Knee Technique: AP, lateral, and sunrise views were obtained. Clinical History: Osteoarthritis Findings: No fracture or dislocation is seen. Moderate tricompartmental degenerative changes present, prominent osteophyte formation throughout the knee and probable mild medial compartment narrowing. S oft tissues are unremarkable. No joint effusion is seen. Impression: Moderate tricompartmental osteoarthritis, as detailed above. Reviewed, dictated and finalized at location M. NT PARALEGAL Impression: Moderate tricompartmental osteoarthritis, as detailed above.
== END ==
PROVIDERS: PCP Family Medicine Adolescent Medicine; Visit Provider Family Medicine Adolescent Medicine
DX: M17.0 Bilateral primary osteoarthritis of knee (principal)
CPT/HCPCS: 73562

== ENCOUNTER 2022-10-24 09:50 | Outpatient (CLI) | payer MEDICARE, SELFPAY ==
--- NOTE | ~2022-10-24 | XR_ITS ---
XR abdomen/kub 1V 10/24/2022 10:25 Indication: Renal stones Procedure: KUB Comparison: 10/15/2016 Findings: There is a left renal stone in the lower pole measuring 9 mm. There is an IVC filter with t he superior tip at the L2 level. There are bilateral hip arthroplasties. No acute osseous abnormality . There are pelvic phleboliths. Nonobstructive bowel gas pattern. Impression: 1: Left nephrolithiasis. Reviewed, dictated and finalized at location B. IOTHERAPY PRACTICE MANAGER Impression: 1: Left nephrolithiasis.
--- NOTE | ~2022-10-24 | US_ITS ---
US retroperitoneal comp 10/24/2022 10:28 Procedure: Realtime transabdominal ultrasound of the kidneys and bladder. Indication: Renal stones Comparison: 06/27/2019 Findings: Right renal echotexture is normal without hydronephrosis, mass or stone. Right kidney measu res 10 cm. Left kidney measures 10.9 cm. There is an echogenic focus in the lower pole of the left ki dney measuring 13 mm, consistent with nonobstructing stone. There is a left renal cyst measuring 1.5 cm. Impression: 1: Nonobstructing left nephrolithiasis measuring 1.3 cm. 2: Left renal cyst measuring 1.5 cm. Reviewed, dictated and finalized at location B. RVISOR PRODUCTION Impression: 1: Nonobstructing left nephrolithiasis measuring 1.3 cm. 2: Left renal cyst measuring 1.5 cm.
== END 2022-10-24 09:51 | disposition home or self-care (01) ==
PROVIDERS: PCP Family Medicine Adolescent Medicine; Visit Provider Urology
DX: N20.0 Calculus of kidney (principal); N28.1 Cyst of kidney, acquired
CPT/HCPCS: 74018; 76770

== ENCOUNTER 2022-11-21 07:48 | Outpatient (CLI) | payer MEDICARE, SELFPAY ==
--- NOTE | 2022-11-21 08:44 | ECG_ITS ---
Measurements Intervals Chemult Rate: 79 P: 47 WV: 185 QRS: -14 QRSD: 117 T: -11 QT: 380 QTc: 438 Interpretive Statements SINUS RHYTHM VENTRICULAR PREMATURE COMPLEX INCOMPLETE RIGHT BUNDLE BRANCH BLOCK LOW QRS VOLTAGE IN PRECORDIAL LEFT VENTRICULAR HYPERTROPHY POOR R WAVE PROGRESSION, ANTERIOR LEADS INFERIOR INFARCT, AGE INDETERMINATE BASELINE ARTIFACT- I, II, III, AVR, AVL, AVF, V1-V6 ABNORMAL ECG COMPARED TO ECG 12/13/2019 12:40:27 NO SIGNIFICANT CHANGES Electronically Signed On 11-21-2022 9:53:19 CDT by Javi Goode D.O.
[2022-11-21 09:17] LABS: Basophils Absolute Auto 0.1 K/mm3 (0.0-0.1); Basophils Percent Auto 0.7 % (0.2-1.2); Eosinophils Absolute Auto 0.1 K/mm3 (0-0.3); Hematocrit 46.9 % (37.0-47.0); Hemoglobin 14.9 g/dL (12.0-15.0); Immature Granulocyte Absolute 0.19 K/mm3 (0.00-0.031); Immature Granulocyte Percent A 1.5 % (0-0.5); Lymphocytes Absolute Auto 1.83 K/mm3 (0.9-3.2); Lymphocytes Percent Auto 14.6 % (18.3-44.2); Mean Corpuscular HGB Conc 31.8 g/dl (32-36); Mean Corpuscular Hemoglobin 30.2 pg (26-34); Mean Corpuscular Volume 95.1 fl (80-100); Mean Platelet Volume 9.4 fl (7.4-10.4); Monocytes Absolute Auto 1.1 K/mm3 (0.1-0.6); Monocytes Percent Auto 8.9 % (2.6-8.5); Neutrophils Absolute Auto 9.2 K/mm3 (1.3-6.7); Neutrophils Percent Auto 73.3 % (45.5-73.1); Platelet Count Result 408 k/mm3 (150-375); Red Blood Count 4.93 M/mm3 (4.2-5.4); Red Cell Distribution Width 15.9 % (11.5-14.5); White Blood Count 12.6 K/mm3 (4.5-10.0)
[2022-11-21 09:26] LABS: Urine Cotinine NEGATIVE
[2022-11-21 09:28] LABS: Prothrombin Time 12.5 Seconds (11.1-14.7)
[2022-11-21 09:29] LABS: Partial Thromboplastin Time 24.9 SECONDS (22.3-36.8)
[2022-11-21 09:32] LABS: Albumin Level 4.5 g/dL (3.5-5.1); Anion Gap 6 mmol/L (8-16); Blood Urea Nitrogen 25 mg/dL (7-17); Calcium 10.2 mg/dL (8.4-10.2); Carbon Dioxide 30 mmol/L (22-30); Chloride 109 mmol/L (98-107); Estimated Glomerular Filt Rate > 60; Glucose 97 mg/dL (65-110); Potassium 4.7 mmol/L (3.4-5.0); Sodium 145 mmol/L (137-145)
[2022-11-21 09:58] LABS: Appearance Urine Cloudy (Clear); Bacteria Urine 4+ /hpf; Bilirubin Urine Negative (Negative); Blood Urine Negative (Negative); Calcium Oxalate Crystals Urine Present /hpf; Color Urine Yellow (Yellow); Glucose Urine UA Negative (Negative); Ketones Urine Negative (Negative); Leukocyte Esterase Ur Trace LEU/UL (Negative); Nitrate Urine Negative (Negative); Protein Urine Negative (Negative); Specific Grav Ur 1.022 (1.001-1.035); Squamous Epithelial Cell Urine Moderate /hpf (Few); Urobilinogen Urine 0.2 mg/dL (<2.0); WBC Urine 21-50 /hpf
[2022-11-21 10:02] LABS: Add Urine Microscopic? YES
[2022-11-21 10:11] LABS: Hemoglobin A1C 5.5 % (<5.7)
== END 2022-11-21 07:49 | disposition home or self-care (01) ==
LOC: ANHSURGERY 07:53
PROVIDERS: PCP Family Medicine Adolescent Medicine; Visit Provider Orthopaedic Surgery
DX: M17.12 Unilateral primary osteoarthritis, left knee (principal); Z01.818 Encounter for other preprocedural examination; I45.10 Unspecified right bundle-branch block
CPT/HCPCS: 80048; 80307; 81001; 82040; 83036; 85025; 85610; 85730; 87081; 87086; 93005

== ENCOUNTER 2022-11-30 14:43 | Outpatient (CLI) | payer MEDICARE, SELFPAY ==
--- NOTE | ~2022-11-30 | US_ITS ---
EXAMINATION: US venous doppler [facility] DATE: 11/30/2022 15:20 INDICATION: Lower limb pain TECHNIQUE: Cid scale images without and with compression and Doppler images of the bilateral lower e xtremity veins were obtained. COMPARISON: 12/14/2019 FINDINGS: The right common femoral vein, profunda femoral vein, femoral vein, popliteal vein, peroneal trunk, p osterior tibial veins, and greater saphenous vein are patent. The left common femoral vein, profunda femoral vein, femoral vein, popliteal vein, peroneal trunk, po sterior tibial veins, and greater saphenous vein are patent. IMPRESSION: 1. Patent bilateral lower extremity veins. No evidence of deep venous thrombosis. Reviewed, dictated and finalized at location B. IMPRESSION: 1. Patent bilateral lower extremity veins. No evidence of deep venous thrombosi s.
== END 2022-11-30 14:44 | disposition home or self-care (01) ==
PROVIDERS: PCP Family Medicine Adolescent Medicine; Visit Provider Nurse Practitioner Family
DX: M79.661 Pain in right lower leg (principal); M79.662 Pain in left lower leg
CPT/HCPCS: 93970

== ENCOUNTER 2022-12-05 07:00 | Inpatient (IN) | payer MEDICARE, SELFPAY ==
--- NOTE | 2022-11-21 07:39 | PC.NURSE ---
PRE-OP INSTRUCTIONS, PLEASE READ CAREFULLY Report to the Outpatient Waiting Room, entrance under the green pavilion located off [facility], at time _0600_ on date _12/05/22_. Planned Procedure Time: _0730_. PACK A SMALL OVERNIGHT BAG AND LEAVE IN THE CAR ALONG WITH YOUR WALKER Time changes happen often and if your time is changed the preop area will call you the afternoon before. - You and your visitor will be asked to self-screen and do not enter if you have any COVID symptoms. - Only one visitor is requested with a max of two and NO children visitors are allowed at this time. - The patient visitor may be requested to leave or wait in car when not with patient due to distancing restrictions. - A mask is optional within the hospital at this time. -VISITING HOURS 8AM-8PM Patients may have clear liquids (water, carbonated beverages, clear teas, apple juice) until 3 hours prior to surgery (0430 AM) with a maximum of 20 ounces. - No food from midnight until time of surgery Take the following medications with a SIP of water the morning of surgery: _BUPROPION, BUSPIRONE, DULOXETINE, SYMBICORT INHALER & ALBUTEROL INHALER, NITROGLYCERIN IF NEEDED_ DO NOT STOP ANY OF YOUR OTHER PRESCRIPTION MEDICATIONS PRIOR TO SURGERY ?EXCEPT THE FOLLOWING Medications to discontinue _APIXABAN (ELIQUIS) PER DR. PADILLA'S INSTRUCTIONS_ Medications to discontinue per ANESTHESIA - _MULTIVITAMIN 3 DAYS PRIOR TO SURGERY, Date to take last dose 12/01/22_ Please no make-up, nail uzbek, hairspray, perfume, deodorant, or body powder the day of surgery. No jewelry (including any body piercings) or valuables the day of surgery, leave them at home. Please take a shower or bath the night before, or the morning of, surgery with an antibacterial soap. Wear comfortable, loose fitting clothing. - Jewelry must be removed prior to entering the operating room. Rings and piercings that are not removed may be cut off. - The hospital will not accept responsibility for valuables. - Please leave all valuables, including medications, at home the day of surgery. If you are going home after surgery, a licensed driver operator must drive you home. - NO public transportation without another adult if you receive anesthesia. - We recommend that an adult stay with you for 24 hours following discharge. - We also recommend that you do not drive, make important decision, drink alcoholic beverages, or take any drugs that were not prescribed by your health care provider for at least 24 hours after your discharge time. Follow any additional instructions given to you from DR. PADILLA. If you or anyone in your household have experienced Covid symptoms in the past week, please notify your surgeon or the nurse liaison at the phone number below for possible testing. Instructions given to _PATIENT_and asked if any additional questions and then verbalized understanding. Patient advised to call surgeon office or pre surgery nurse liaison [phone] if any additional questions.
[2022-11-21 07:45] VITALS: BMI 34.3
[2022-11-21 08:11] VITALS: BP 144/80; PULSE 84; RESP 20; TEMP 36.4; O2SAT 97
[2022-12-05] VITALS (11 sets, daily range): BP systolic 115–136; BP diastolic 55–78; PULSE 75–95; RESP 10–125; TEMP 35.6–36.7; O2SAT 91–97
--- NOTE | ~2022-12-05 | XR_ITS ---
EXAMINATION: [id number] DATE: 12/05/2022 10:37 CDT INDICATION: Left knee pain TECHNIQUE: 2 views left knee FINDINGS: There is a left total knee arthroplasty in expected position. Subcutaneous gas with fluid and air in the joint and overlying skin rachel are consistent with recent surgery. No evidence of pe riprosthetic fracture. IMPRESSION: 1. Recent left total knee arthroplasty. Reviewed, dictated and finalized at location B.
[2022-12-05] MEDS: ACETAMINOPHEN 500 MG TABLET 1000 MG PO (06:30)
[2022-12-05] MEDS: LACTATED RINGERS 1,000 ML 30 ML IV CONT (07:00)
[2022-12-05] MEDS: TRANEXAMIC ACID 1,000MG/ISO100 1,000 MG/100 ML BAG 200 MG IVPB (07:12)
--- NOTE | 2022-12-05 07:12 | WPDHPUPDATE1 ---
History and Physical Update Update Date/Time: 12/05/22 07:12 History and Physical has been reviewed, including an updated exam of the patient. There are NO changes in the patient's condition. Risks, benefits, and alternatives have been discussed and questions answered. Patient agrees to proceed with procedure.
--- NOTE | 2022-12-05 07:17 | WPDANESEPPF ---
Anes - Initial Pre Proc Eval Procedure: Operation Date: 12/05/22 07:30 Proposed Procedures p Left Total Knee Arthroplasty - Sean Porter MD Date/Time: 12/05/22 07:17 Surgeon: Sean Porter MD Pre Op Diagnosis: Left knee djd Patient Data Age: 67 Gender: F Height: 1.65 m Weight: 92.8 kg Last Vital Signs Temp 36.7 C 12/05/22 06:48 Pulse 94 12/05/22 06:48 Resp 16 12/05/22 06:48 BP 136/78 12/05/22 06:48 Pulse Ox 93 12/05/22 06:48 O2 Del Method Room Air 12/05/22 06:48 Allergies Allergy/AdvReac Type Severity Reaction Status Date / Time hydrocodone Allergy Intermediate Migraine Verified 12/05/22 06:21 propoxyphene Allergy Intermediate Migraine Verified 12/05/22 06:21 Sulfa (Sulfonamide Allergy Intermediate MOUTH SORE Verified 12/05/22 06:21 Antibiotics) nitrofurantoin AdvReac Intermediate Rash, Verified 12/05/22 06:21 myalgias Home Medications Medication Instructions Recorded Confirmed Type albuterol sulfate 90 mcg/actuation 1 - 2 puff inhalation Q4-6H PRN 11/02/21 12/05/22 Rx aerosol inhaler shortness of breath or wheezing #8.5 grams metoclopramide HCl 10 mg tablet See Rx Instructions .Route 04/09/22 11/27/22 Rx .COMPLEX #90 tabs pantoprazole 40 mg tablet,delayed 40 mg PO BID #180 tabs 04/09/22 12/05/22 Rx release buspirone 10 mg tablet See Rx Instructions .Route 04/20/22 12/05/22 Rx .COMPLEX #180 tabs fenofibrate 160 mg tablet See Rx Instructions .Route 04/20/22 12/05/22 Rx .COMPLEX #90 tabs oxybutynin chloride 15 mg 15 mg PO DAILY #90 tabs 06/06/22 12/05/22 Rx tablet,extended release 24 hr apixaban 5 mg tablet (Eliquis) See Rx Instructions .Route 06/26/22 12/05/22 Rx .COMPLEX #180 tabs budesonide-formoterol HFA 160 See Rx Instructions .Route 07/18/22 12/05/22 Rx mcg-4.5 mcg/actuation aerosol .COMPLEX #3 ea inhaler (Symbicort) multivit with 1 tablet PO DAILY 08/08/22 12/05/22 History kuptssfm-bgrh-XS-lutein 8 mg iron-400 mcg-300 mcg tablet (Multivitamin Women 50 Plus) bupropion HCl 150 mg 24 hr tablet, 450 mg PO QAM #270 tabs 09/13/22 12/05/22 Rx extended release duloxetine 60 mg capsule,delayed 60 mg PO DAILY #90 caps 10/22/22 12/05/22 Rx release atorvastatin 40 mg tablet See Rx Instructions .Route 11/21/22 12/05/22 Rx .COMPLEX #90 tabs folic acid 1 mg tablet 1 mg PO DAILY 11/21/22 12/05/22 History nitroglycerin 0.4 mg sublingual 0.4 mg sublingual PRN PRN Spasms 11/21/22 11/27/22 History tablet Patient hx anesthesia problems: none Family hx anesthesia problems: none Results Review: All pre-operative results and documents have been reviewed as part of the pre-operative evaluation. [facility] Past Medical History Medical History Abnormal colonoscopy 04/15 polyps Repeat 04/18 Anxiety Bilateral calf pain Depression DVT (deep venous thrombosis) In 2001 after bunionectomy. Also 12/13, 06/15 GERD (gastroesophageal reflux disease) Hidradenitis Excision of hidradenitis from the left thigh in 2012. Hyperlipidemia Kidney stones Occult blood in stools Osteoarthritis Pain of left calf Pulmonary embolism In 2002 after right hip replacement. Right calf pain Skin cancer MARLENE (stress urinary incontinence, female) UTI (urinary tract infection) Surgical History Surgical History History of appendectomy History of bilateral hip replacements Right in 2002. Left in 2010. History of bunionectomy History of cataract extraction History of cholecystectomy History of hysterectomy Family History Family History Father Family history of alcoholism Mother Cerebrovascular accident Other Family history of arthritis Hypertension Social History Social History Social Hist
[2022-12-05] MEDS: ceFAZolin 2 GM/D5W 50 ML 2 GM/50 ML BAG IVPB ×3 (07:30→23:09)
[2022-12-05] MEDS: TRANEXAMIC ACID 1,000 MG/10 ML AMPUL 1000 MG IV PUSH (09:32)
--- NOTE | 2022-12-05 10:33 | WPDANESPNB ---
Anes - Peripheral Nerve Block Date/Time: 12/05/22 10:33 I have discussed with the patient/family/POA the placement of a peripheral nerve block for post-operative pain management, including associated risks, benefits, complications, and side effects. Alternative methods of post-operative analgesia were detailed. Questions were solicited and answers provided to the satisfaction of the patient/family/POA. Time-Out: A pre-procedural Time-Out was completed immediately before starting the procedure and confirmed: Patient Identification, Site, Procedure, Patient Position and the Availability of Requisite Equipment. Clinical Indications: Acute post-operative pain management requested by the operative surgeon. Nerve Block Insertion Note Anes-nerve block: adductor canal left Patient position: supine Skin prep: chlorhexidine Needle: 22 gauge, stimulating, insulated echogenic needle. Needle length: 80 mm Technique: ultrasound Injectate: bupivacaine 0.5% with epi 5 mcg/ml (20ml) and dexamethasone (mg) (4) Observations: tolerated well Complications: none Procedure start time:: 1024 Procedure end time:: 1030
--- NOTE | 2022-12-05 10:38 | W.PM.PROC2 ---
Procedure Note - Detailed Date of Procedure 12/05/22 Pre-op Diagnosis Left knee djd Post-op Diagnosis Same Procedure Performed L TKA Surgeon Sean Porter MD Anesthesia General Description of Procedure THE LEFT KNEE WAS PREPPED AND DRAPED IN THE STERILE FASHION. THERE WAS A 15 DEGREE FLEXION CONTRACTURE. A MIDLINE SKIN INCISION WAS MADE. A MEDIAL PARAPATELLAR ARTHROTOMY WAS MADE. THE PATELLA WAS EVERTED. THERE WAS TRICOMPARTMENT DJD. THERE WAS MINIMAL PATELLA DJD. AN INTRAMEDULLARY FRED WAS PLACED IN THE FEMUR. A DISTAL FEMORAL CUT WAS MADE IN 5 DEGREES OF VALGUS REMOVING APPROXIMATELY 11 MM OF BONE FROM THE DISTAL FEMUR. THE FEMUR WAS SIZED TO 62.5. A 62.5 FEMORAL CUTTING BLOCK WAS PLACED IN 3 DEGREES OF EXTERNAL ROTATION AND IN ALIGNMENT WITH MONTRELL'S LINE AND THE TRANSEPICONDYLAR AXIS. ANTERIOR POSTERIOR AND CHAMFER CUTS WERE MADE. THE CUTS WERE EXCELLENT. NEXT AN INTRAMEDULLARY CUTTING GUIDE WAS PLACED IN THE TIBIA. A TRANS TIBIAL CUT WAS MADE ALONG THE LONG AXIS OF THE TIBIA. APPROXIMATELY 10 MM OF BONE WAS REMOVED FROM THE HIGH SIDE OF THE TIBIA. THE TIBIA WAS THEN PLANED TO A SMOOTH SURFACE. POSTERIOR FEMORAL OSTEOPHYTES WERE REMOVED FROM THE FEMORAL CONDYLES. A 71 TIBIAL TRIAL WAS PLACED IN ALIGNMENT WITH THE 1/3 MEDIAL ASPECT OF THE TIBIAL TUBERCLE. THEN A 65 FEMORAL TRIAL COMPONENT WAS PLACED. BOTH HAD EXCELLENT FITS. EVENTUALLY A 10 MM CR POLYETHYLENE TRIAL COMPONENT WAS PLACED. THE KNEE WAS TAKEN THROUGH A RANGE OF MOTION. THE KNEE CAME OUT TO FULL EXTENSION. THERE WAS NO ABNORMAL TILT TO THE PATELLA. THERE WAS GOOD A/P AND VARUS/VALGUS STABILITY. THERE WAS NO EXCESSIVE ROLL BACK WITH FLEXION. THE TRIAL COMPONENTS WERE REMOVED. THEN A 62.5 FEMORAL COMPONENT AND 71 TIBIAL COMPONENT WITH A 10 CR POLYETHYLENE COMPONENT WERE CEMENTED INTO PLACE. ONCE THE CEMENT WAS HARD THE KNEE WAS TAKEN THROUGH A ROM AGAIN AND FOUND TO BE STABLE WITH NO PATELLA TILT NO EXCESSIVE ROLL BACK WITH FLEXION AND GOOD STABILITY WITH COMPLETE AND FULL EXTENSION. THE KNEE WAS IRRIGATED WITH STERILE BETADINE AND WATER FOR ABOUT 3 MINUTES. THE BLEEDERS WERE CAUTERIZED. THE ARTHROTOMY WAS REPAIRED WITH NUMBER 1 VICRYL. THE SUB CUTANEOUS LAYER WITH 2-0 VICRYL AND THE SKIN WITH ENA. THE WOUND WAS WASHED AND A STERILE DRESSING WAS APPLIED. PATIENT WAS EXTUBATED. Estimated Blood Loss -200.0 Pathology None sent Complications No immediate complications Condition Stable Disposition PACU
[2022-12-05] MEDS: oxyCODONE/ACETAMINOPHEN (*CRX) 5-325 MG TABLET 1 TABLET PO ×2 (15:33→20:13)
[2022-12-05] MEDS: CELECOXIB 200 MG CAPSULE PO (15:33)
[2022-12-05] MEDS: busPIRone HCL 10 MG TABLET PO (15:33)
[2022-12-05] MEDS: SENNA/DOCUSATE SODIUM TABLET 2 TAB PO (15:34)
[2022-12-05] MEDS: PANTOPRAZOLE 40 MG TABLET PO (20:10)
[2022-12-05] MEDS: APIXABAN 5 MG TABLET PO (20:10)
[2022-12-05] MEDS: METOCLOPRAMIDE HCL 10 MG TABLET PO (20:10)
[2022-12-05] MEDS: FLUTICASONE/SALMETEROL 115-21 MCG INHALER 1 PUFF 2 PUFF INHALATION (21:06)
[2022-12-06] VITALS (7 sets, daily range): BP systolic 107–127; BP diastolic 49–74; PULSE 90–109; RESP 16–20; TEMP 35.6–36.9; O2SAT 90–95
[2022-12-06] MEDS: oxyCODONE/ACETAMINOPHEN (*CRX) 5-325 MG TABLET 1 TABLET PO ×2 (04:23→08:44)
[2022-12-06] MEDS: ceFAZolin 2 GM/D5W 50 ML 2 GM/50 ML BAG IVPB (06:07)
[2022-12-06 07:28] LABS: Basophils Percent Auto 0.2 % (0.2-1.2); Eosinophils Absolute Auto 0.1 K/mm3 (0-0.3); Hematocrit 35.1 % (37.0-47.0); Hemoglobin 11.1 g/dL (12.0-15.0); Immature Granulocyte Percent A 0.7 % (0-0.5); Lymphocytes Absolute Auto 1.95 K/mm3 (0.9-3.2); Lymphocytes Percent Auto 13.9 % (18.3-44.2); Mean Corpuscular HGB Conc 31.6 g/dl (32-36); Mean Corpuscular Hemoglobin 29.6 pg (26-34); Mean Corpuscular Volume 93.6 fl (80-100); Mean Platelet Volume 9.4 fl (7.4-10.4); Monocytes Absolute Auto 1.9 K/mm3 (0.1-0.6); Monocytes Percent Auto 13.6 % (2.6-8.5); Neutrophils Absolute Auto 9.9 K/mm3 (1.3-6.7); Neutrophils Percent Auto 70.6 % (45.5-73.1); Platelet Count Result 320 k/mm3 (150-375); Red Blood Count 3.75 M/mm3 (4.2-5.4); Red Cell Distribution Width 15.5 % (11.5-14.5)
[2022-12-06 07:43] LABS: Anion Gap 4 mmol/L (8-16); Blood Urea Nitrogen 15 mg/dL (7-17); Calcium 8.7 mg/dL (8.4-10.2); Carbon Dioxide 30 mmol/L (22-30); Chloride 102 mmol/L (98-107); Estimated CRCL calculation 100 ml/min; Estimated Glomerular Filt Rate > 60; Glucose 93 mg/dL (65-110); Potassium 3.9 mmol/L (3.4-5.0); Sodium 136 mmol/L (137-145)
[2022-12-06] MEDS: FLUTICASONE/SALMETEROL 115-21 MCG INHALER 1 PUFF 2 PUFF INHALATION ×2 (08:10→21:02)
[2022-12-06] MEDS: buPROPion HCL XL (24 HR) 150 MG TABCR 450 MG PO (08:42)
[2022-12-06] MEDS: ATORVASTATIN 40 MG TABLET PO (08:42)
[2022-12-06] MEDS: CELECOXIB 200 MG CAPSULE PO ×2 (08:42→16:36)
[2022-12-06] MEDS: APIXABAN 5 MG TABLET PO ×2 (08:42→20:06)
[2022-12-06] MEDS: DULoxetine HCL 60 MG CAPSULE.DR PO (08:43)
[2022-12-06] MEDS: oxyBUTYnin CHLORIDE XL 5 MG TAB.ER.24 15 MG PO (08:43)
[2022-12-06] MEDS: SENNA/DOCUSATE SODIUM TABLET 2 TAB PO ×2 (08:43→16:37)
[2022-12-06] MEDS: FOLIC ACID 1 MG TABLET PO (08:43)
[2022-12-06] MEDS: FENOFIBRATE 160 MG TABLET PO (08:43)
[2022-12-06] MEDS: busPIRone HCL 10 MG TABLET PO ×2 (08:43→16:36)
[2022-12-06] MEDS: PANTOPRAZOLE 40 MG TABLET PO ×2 (08:43→20:06)
[2022-12-06] MEDS: polyethylene glycoL 3350 17 GM POWD.PACK PO (08:44)
--- NOTE | 2022-12-06 09:31 | P.PNAN_ITS ---
Anes - Prog Note Post-Op Date/Time: 12/06/22 09:31 Cardiovascular status: normal Respiratory status: normal Airway patency: baseline Mental status: baseline Post-Op hydration status: normal Vital Signs: Last Vital Signs Temp 36.4 C L 12/06/22 09:04 Pulse 102 H 12/06/22 09:04 Resp 20 12/06/22 09:04 BP 113/49 L 12/06/22 09:04 Pulse Ox 91 12/06/22 09:04 O2 Del Method Nasal Cannula 12/05/22 13:54 O2 Flow Rate 2 12/05/22 13:54 Pain Score (VAS): 3 I/O: Intake & Output 12/05/22 12/06/22 12/06/22 23:59 07:59 15:59 Intake Total 340 350 944 Balance 340 350 944 Laboratory Tests 12/06/22 07:03 12/06/22 07:03 12/06/22 12/06/22 07:03 07:03 WBC 14.0 H RBC 3.75 L Hgb 11.1 L D Hct 35.1 L MCV 93.6 MCH 29.6 MCHC 31.6 L RDW 15.5 H Plt Count 320 MPV 9.4 Immature Gran % (Auto) 0.7 H Neut % (Auto) 70.6 Lymph % (Auto) 13.9 L Josephine % (Auto) 13.6 H Eos % (Auto) 1.0 Baso % (Auto) 0.2 Lymph # (Auto) 1.95 Josephine # (Auto) 1.9 H Eos # (Auto) 0.1 Baso # (Auto) 0.0 Abs Immat Gran (auto) 0.10 H Absolute Neuts (auto) 9.9 H Absolute Nucleated RBC 0.0 Nucleated RBC % 0.0 Sodium 136 L Potassium 3.9 Chloride 102 Carbon Dioxide 30 Anion Gap 4 L BUN 15 D Creatinine 0.50 L Estim Creat Clear Calc 100 Estimated GFR > 60 Glucose 93 Calcium 8.7 Post-procedural complaints: none Patient Feedback: Patient satisfied with anesthetic care.
[2022-12-06] MEDS: ACETAMINOPHEN 500 MG TABLET 1000 MG PO (11:24)
[2022-12-06] MEDS: oxyCODONE/ACETAMINOPHEN (*CRX) 5-325 MG TABLET 2 TABLET PO ×2 (13:38→20:06)
[2022-12-06] MEDS: diazePAM (*CRX) 5 MG TABLET PO (16:36)
--- NOTE | 2022-12-06 18:14 | PM.PNORT ---
Progress Note: A&P Assessment and Plan (1) Left knee DJD: Code(s): M17.12 - Unilateral primary osteoarthritis, left knee Status: Acute Assessment and Plan: POD 1 DOING WELL. WE WILL OBSERVE HER ANOTHER DAY TO MAKE SURE HER O2 SATS STABILIZE OR IMPROVE. SHE WILL CONTINUE PT TOLERATED AND WE WILL REEVALUATE HER IN THE AM Subjective Subjective Date/Time Seen: 12/06/22 18:14 POD 1 DOING WELL. HER O2 LUI ARE STILL A LITTLE LOW BUT SHE IS NOT SOB AT REST OR WITH ACTIVITY. SHE DENIES CHEST PAIN OR CALF PAIN Exam Extrem: Other: VSS AFEBRILE DRESSING DRY NV INTACT NEG HOMANS SIGN CALF NON TENDER Objective Data Vital Signs Vital Signs: Vital Signs - 24 hr 12/05/22 21:07 12/06/22 01:25 12/06/22 05:25 Temperature 35.6 C L 36.1 C L Pulse Rate 75 90 90 Respiratory Rate 16 16 20 Blood Pressure 127/56 L 126/59 L Pulse Oximetry 90 95 Oxygen Delivery 12/06/22 09:04 12/06/22 08:45 12/06/22 13:25 Temperature 36.4 C L 36.4 C L Pulse Rate 102 H 109 H Respiratory Rate 20 20 Blood Pressure 113/49 L 112/60 Pulse Oximetry 91 92 93 Oxygen Delivery Room Air Intake/Output Intake/Output: Intake & Output 12/03/22 12/04/22 12/05/22 12/06/22 23:59 23:59 23:59 23:59 Intake Total 680 2954 Balance 680 2954 Meds/Results Medications: Active Medications Generic Name Dose Route Start Last Admin Trade Name Freq PRN Reason Stop Dose Admin Acetaminophen 1,000 mg 12/05/22 11:40 12/06/22 11:24 Acetaminophen 500 Mg Tablet PO 1,000 mg Q6H PRN Administration Pain Rated 1-3 Albuterol 1 - 2 puff 12/05/22 11:40 Albuterol Sulfate (*Sp) Aerosol 1 Puff INHALATION Q4-6H PRN shortness of breath or wheezing Apixaban 5 mg 12/05/22 21:00 12/06/22 08:42 Apixaban 5 Mg Tablet PO 5 mg Q12HR ION Administration Atorvastatin Calcium 40 mg 12/06/22 09:00 12/06/22 08:42 Atorvastatin 40 Mg Tablet PO 40 mg DAILY ION Administration Bupropion HCl 450 mg 12/06/22 09:00 12/06/22 08:42 Bupropion Hcl Xl (24 Hr) 150 Mg Tabcr PO 450 mg QAM ION Administration Buspirone HCl 10 mg 12/05/22 17:00 12/06/22 16:36 Buspirone Hcl 10 Mg Tablet PO 10 mg BID ION Administration Celecoxib 200 mg 12/05/22 17:00 12/06/22 16:36 Celecoxib 200 Mg Capsule PO 200 mg BIDWM ION Administration Diazepam 5 mg 12/05/22 11:40 12/06/22 16:36 Diazepam (*Crx) 5 Mg Tablet PO 5 mg Q8H PRN Administration Spasms Diphenhydramine HCl 25 mg 12/05/22 11:40 Diphenhydramine Hcl Inj 50 Mg/Ml Vial IV PUSH Q6H PRN Itching Duloxetine HCl 60 mg 12/06/22 09:00 12/06/22 08:43 Duloxetine Hcl 60 Mg Capsule.Dr PO 60 mg DAILY ION Administration Fenofibrate 160 mg 12/06/22 09:00 12/06/22 08:43 Fenofibrate 160 Mg Tablet PO 160 mg DAILY ION Administration Folic Acid 1 mg 12/06/22 09:00 12/06/22 08:43 Folic Acid 1 Mg Tablet PO 1 mg DAILY ION Administration Metoclopramide HCl 10 mg 12/05/22 21:00 12/05/22 20:10 Metoclopramide Hcl 10 Mg Tablet PO 10 mg HS ION Administration Naloxone HCl 0.1 mg 12/05/22 11:40 Naloxone Hcl 0.4 Mg/Ml Vial IV PUSH Q2M PRN Opiate Reversal Nitroglycerin 0.4 mg 12/05/22 11:40 Nitroglycerin Sl 0.4 Mg Tablet SUBLINGUAL PRN PRN Spasms Ondansetron HCl 4 mg 12/05/22 11:40 Ondansetron Inj 4 Mg/2 Ml Vial IV PUSH Q4H PRN Nausea And Vomiting Oxybutynin Chloride 15 mg 12/06/22 09:00 12/06/22 08:43 Oxybutynin Chloride Xl 5 Mg Tab.Er.24 PO 15 mg DAILY ION Administration Oxycodone/Acetaminophen 1 tablet 12/05/22 11:40 12/06/22 08:44 Oxycodone/Acetaminophen (*Crx) 5-325 Mg Tablet PO 1 tablet Q4H PRN Administration Pain Rated 4-6 Oxycodone/Acetaminophen 2 tablet 12/05/22 11:40 12/06/22 13:38 Oxycodone/Acetaminophen (*Crx) 5-325 Mg Tablet PO 2 tablet Q6H PRN Administration Pain Rated 7-10 Pant
[2022-12-06] MEDS: METOCLOPRAMIDE HCL 10 MG TABLET PO (20:06)
[2022-12-07] MEDS: oxyCODONE/ACETAMINOPHEN (*CRX) 5-325 MG TABLET 1 TABLET PO ×2 (01:30→05:49)
[2022-12-07] MEDS: diazePAM (*CRX) 5 MG TABLET PO (05:49)
[2022-12-07 05:57] VITALS: BP 131/47; PULSE 101; RESP 16; TEMP 36.9; O2SAT 92
[2022-12-07] MEDS: FOLIC ACID 1 MG TABLET PO (09:01)
[2022-12-07] MEDS: ACETAMINOPHEN 500 MG TABLET 1000 MG PO (09:01)
[2022-12-07] MEDS: ATORVASTATIN 40 MG TABLET PO (09:01)
[2022-12-07] MEDS: DULoxetine HCL 60 MG CAPSULE.DR PO (09:01)
[2022-12-07] MEDS: FENOFIBRATE 160 MG TABLET PO (09:01)
[2022-12-07] MEDS: SENNA/DOCUSATE SODIUM TABLET 2 TAB PO (09:02)
[2022-12-07] MEDS: CELECOXIB 200 MG CAPSULE PO (09:02)
[2022-12-07] MEDS: busPIRone HCL 10 MG TABLET PO (09:02)
[2022-12-07] MEDS: oxyBUTYnin CHLORIDE XL 5 MG TAB.ER.24 15 MG PO (09:02)
[2022-12-07] MEDS: buPROPion HCL XL (24 HR) 150 MG TABCR 450 MG PO (09:02)
[2022-12-07] MEDS: APIXABAN 5 MG TABLET PO (09:02)
[2022-12-07] MEDS: PANTOPRAZOLE 40 MG TABLET PO (09:03)
[2022-12-07] MEDS: polyethylene glycoL 3350 17 GM POWD.PACK PO (09:03)
[2022-12-07 09:12] VITALS: O2SAT 92
[2022-12-07] MEDS: FLUTICASONE/SALMETEROL 115-21 MCG INHALER 1 PUFF 2 PUFF INHALATION (09:12)
--- NOTE | 2022-12-07 10:31 | PM.PNORT ---
Progress Note: A&P Assessment and Plan (1) Left knee DJD: Code(s): M17.12 - Unilateral primary osteoarthritis, left knee Status: Acute Assessment and Plan: POD 2 DOING WELL. OK TO DC HOME. F/U IN 3 WEEKS. Subjective Subjective Date/Time Seen: 12/07/22 10:31 POD 2 DOING WELL. GOOD PROGRESS WITH PT. SHE HAS NO SHORTNESS OF BREATH OR CHEST PAIN. NO CALF PAIN Exam Extrem: Other: VSS AFEBRILE DRESSING DRY NV INTACT WOUND CLEAN, MINIMAL BRUISING. CALF SOFT NON TENDER NEG HOMANS SIGN Objective Data Vital Signs Vital Signs: Vital Signs - 24 hr 12/06/22 13:25 12/06/22 20:00 12/06/22 21:05 Temperature 36.4 C L Pulse Rate 109 H 100 Respiratory Rate 20 Blood Pressure 112/60 Pulse Oximetry 93 92 Oxygen Delivery Room Air Room Air 12/06/22 21:31 12/07/22 05:57 12/07/22 09:12 Temperature 36.9 C 36.9 C Pulse Rate 107 H 101 H Respiratory Rate 16 16 Blood Pressure 107/74 131/47 L Pulse Oximetry 92 92 92 Oxygen Delivery Room Air 12/07/22 08:50 Temperature Pulse Rate Respiratory Rate Blood Pressure Pulse Oximetry Oxygen Delivery Room Air Intake/Output Intake/Output: Intake & Output 12/04/22 12/05/22 12/06/22 12/07/22 23:59 23:59 23:59 23:59 Intake Total 680 2954 1100 Output Total 450 Balance 680 2954 650 Meds/Results Medications: Active Medications Generic Name Dose Route Start Last Admin Trade Name Freq PRN Reason Stop Dose Admin Acetaminophen 1,000 mg 12/05/22 11:40 12/07/22 09:01 Acetaminophen 500 Mg Tablet PO 1,000 mg Q6H PRN Administration Pain Rated 1-3 Albuterol 1 - 2 puff 12/05/22 11:40 Albuterol Sulfate (*Sp) Aerosol 1 Puff INHALATION Q4-6H PRN shortness of breath or wheezing Apixaban 5 mg 12/05/22 21:00 12/07/22 09:02 Apixaban 5 Mg Tablet PO 5 mg Q12HR ION Administration Atorvastatin Calcium 40 mg 12/06/22 09:00 12/07/22 09:01 Atorvastatin 40 Mg Tablet PO 40 mg DAILY ION Administration Bupropion HCl 450 mg 12/06/22 09:00 12/07/22 09:02 Bupropion Hcl Xl (24 Hr) 150 Mg Tabcr PO 450 mg QAM ION Administration Buspirone HCl 10 mg 12/05/22 17:00 12/07/22 09:02 Buspirone Hcl 10 Mg Tablet PO 10 mg BID ION Administration Celecoxib 200 mg 12/05/22 17:00 12/07/22 09:02 Celecoxib 200 Mg Capsule PO 200 mg BIDWM ION Administration Diazepam 5 mg 12/05/22 11:40 12/07/22 05:49 Diazepam (*Crx) 5 Mg Tablet PO 5 mg Q8H PRN Administration Spasms Diphenhydramine HCl 25 mg 12/05/22 11:40 Diphenhydramine Hcl Inj 50 Mg/Ml Vial IV PUSH Q6H PRN Itching Duloxetine HCl 60 mg 12/06/22 09:00 12/07/22 09:01 Duloxetine Hcl 60 Mg Capsule.Dr PO 60 mg DAILY ION Administration Fenofibrate 160 mg 12/06/22 09:00 12/07/22 09:01 Fenofibrate 160 Mg Tablet PO 160 mg DAILY ION Administration Folic Acid 1 mg 12/06/22 09:00 12/07/22 09:01 Folic Acid 1 Mg Tablet PO 1 mg DAILY ION Administration Metoclopramide HCl 10 mg 12/05/22 21:00 12/06/22 20:06 Metoclopramide Hcl 10 Mg Tablet PO 10 mg HS ION Administration Naloxone HCl 0.1 mg 12/05/22 11:40 Naloxone Hcl 0.4 Mg/Ml Vial IV PUSH Q2M PRN Opiate Reversal Nitroglycerin 0.4 mg 12/05/22 11:40 Nitroglycerin Sl 0.4 Mg Tablet SUBLINGUAL PRN PRN Spasms Ondansetron HCl 4 mg 12/05/22 11:40 Ondansetron Inj 4 Mg/2 Ml Vial IV PUSH Q4H PRN Nausea And Vomiting Oxybutynin Chloride 15 mg 12/06/22 09:00 12/07/22 09:02 Oxybutynin Chloride Xl 5 Mg Tab.Er.24 PO 15 mg DAILY ION Administration Oxycodone/Acetaminophen 1 tablet 12/05/22 11:40 12/07/22 05:49 Oxycodone/Acetaminophen (*Crx) 5-325 Mg Tablet PO 1 tablet Q4H PRN Administration Pain Rated 4-6 Oxycodone/Acetaminophen 2 tablet 12/05/22 11:40 12/06/22 20:06 Oxycodone/Acetaminophen (*Crx) 5-325 Mg Tablet PO 2 tablet Q6H PRN Administrat
--- NOTE | 2022-12-07 10:34 | PM.DS ---
DS: Admitting Diagnosis Discharge Date 12/07/22 Admitting Diagnosis LEFT KNEE DJD DS: Discharge Diagnosis Discharge Diagnosis (1) Left knee DJD: Code(s): M17.12 - Unilateral primary osteoarthritis, left knee Status: Acute DS: Summary Hospital Course Reason for hospitalization: LEFT TKA Hospital Course: PATIENT WAS ADMITTED S/P TOTAL KNEE ARTHROPLASTY FOR POSTOPERATIVE MEDICAL MANAGEMENT, PAIN CONTROL AND MOBILIZATION WITH PHYSICAL AND OCCUPATIONAL THERAPY. THE PATIENT PROGRESSED WELL WITH PT/OT. LABS AND VITALS REMAINED STABLE AND PAIN WELL CONTROLLED. THE PATIENT HAS BEEN CLEARED TO BE DISCHARGED HOME. FOLLOW UP APPOINTMENT SCHEDULED. DISCHARGE INSTRUCTIONS DISCUSSED AT LENGTH WITH THE PATIENT. MEDICATIONS REVIEWED. Status at Discharge Cognitive/behavioral status at discharge: STABLE Functional status at discharge: uses cane/walker Time Spent with Patient Time attestation: Total time spent providing and/or coordinating discharge services: DS: Data Procedures/Treatments: L TKA Discharge Plan Discharge Attending physician on discharge: Sean Porter Discharging Clinician: Sean Porter Anticipated Discharge Date/Time: 12/07/22 10:36 Patient Disposition: Home Health Service Activity: may shower and no driving Diet: as tolerated Wound Care Instructions: follow printed instructions Discharge Instructions: Care Coordination: Patient to have [facility] for PT/OT eval and treat, and fdc. They will contact you to schedule their first visit. Their phone number is [phone], if you have any questions. Post Op Total Knee Replacement Instructions Dr. Sean Porter [phone] Your dressing will be changed prior to your discharge. You will be sent home with one additional dressing to be changed on post op day 7 by the home health RN. Your rachel will be removed on the 14th day after surgery and steri-strips will be placed. Please practice good hand hygiene and do not touch your incision in order to prevent infection. You may shower with your dressing but do not submerge in a bath tub. Do not drive or operate machinery until you are released by Dr. Porter. Do not walk without a walker for any reason until you are released by Dr. Porter. Continue to use your ice machine. Please use a towel or pillow case to protect your skin before applying your ice machine. Do NOT place a pillow under your knee. You may use a pillow from the calf down if needed. This will prevent a flexion contracture postoperatively. You may begin use of your CPM machine at home if you have been given one pre-operatively. DO NOT USE WHILE YOU ARE SLEEPING. Your first post op appointment was sent to you via mail preoperatively. If you have any questions or are unable to make your appointment, please contact our office for scheduling questions. Your medications have been sent to your pharmacy. You have been sent home with pain medication. Please diamond picker an over the counter stool softener to prevent constipation due to narcotic use. Please keep this in mind during your postoperative recovery. If you are not experiencing regular bowel movements, please contact our office for further instruction. Please contact our office with any questions/concerns regarding your knee at [phone]. SEAN PORTER M.D. [facility] [address] [place] [address] ? Patient Instructions: Antibiotic Form, Apixaban (By mouth), Safe Use of Anticoagulants (DC), Knee Replacement (DC), Pain Management After Surgery (DC) Stand Alone Forms: General Discharge Information Follow-up/Referrals: [place]
== END 2022-12-07 12:00 | disposition home health service (06) | DRG 470 ==
LOC: ANH3MEDSUR 11:47
PROVIDERS: Admitting Provider Orthopaedic Surgery; PCP Family Medicine Adolescent Medicine; Visit Provider Orthopaedic Surgery
PROC: 0SRD0J9 Replacement of Left Knee Joint with Synthetic Substitute, Cemented, Open Approach (ICD-10-PCS; CPT 27447; principal; 2022-12-05 07:30)
DX: M17.12 Unilateral primary osteoarthritis, left knee (principal); F41.9 Anxiety disorder, unspecified; K21.9 Gastro-esophageal reflux disease without esophagitis; E78.5 Hyperlipidemia, unspecified; Z79.899 Other long term (current) drug therapy; Z79.01 Long term (current) use of anticoagulants
CPT/HCPCS: 36415; 73560; 80048; 85025; 86850; 86900; 86901; 94640; 97110; 97116; 97161; 97165; 97530; 97535; A9270; C1713; C1776; J0171; J0690; J1100; J1885; J2250; J2270; J2405; J2704; J2765; J2795; J3010; J7120

== ENCOUNTER 2023-01-31 12:30 | Outpatient (RCR) | payer MEDICARE, SELFPAY ==
--- NOTE | 2023-01-02 10:02 | PTOPEVAL1 ---
Assessment and note entered by David Magana, PT Evaluation Information Diagnosis L TKA Onset December 05, 2022 Subjective Information Patient has L TKA done on December 05, 2022 and after home health has elected to do outpatient physical therapy. She is using a wheeled walker at this time. Reports able to get around the house, but still having stiffness in the L knee and wanting to get it rehabilitated before having her other knee late this summer. Assessment PT Clinical Summary Maddie is a 67 year old female coming into the clinic with a L TKA performed on December 05, 2022. She is still using her walker. She has good strength in her quads although weakness in her L hip flexors secondary to a prior FARZANA. The patient 's main concern is knee flexion only getting 90 degrees in initial evaluation, but only missing 1 degree of extension. Physical therapy will work on range of motion, progressing off of the walker and improving functional mobility. Plan of Care Interventions Electrical Stimulation,Gait Training,Hot Pack/Cold Pack,Manual Therapy,Neuro Re-education,Patient/ Caregiver Education,Therapeutic Activities, Therapeutic Exercise,Ultrasound PT Services Indicated Yes Treatment Frequency and 2x/wk for 4 weeks Duration These treatments will address the objective and functional deficits as defined above. The patient will be advanced safely and appropriately in order for the patient to progress towards his/her prior level of function. Additional exercises will be introduced and as well as a comprehensive home exercise program upon discharge, if needed, ?to ensure carryover of functional gains achieved in the clinic. This treatment plan has been reviewed and agreement upon by the patient.
--- NOTE | 2023-01-28 14:26 | PCPTNOTE ---
Patient called & cancelled scheduled appointment this date due to not feeling well.
--- NOTE | 2023-01-31 13:11 | PTOPDC ---
Assessment and note entered by David Magana, PT Evaluation Information Assessment Status Discharge Diagnosis L knee replacement December 05, 2022 Onset December 05, 2022 Subjective Information Patient reports she is faithfully doing her HEP and uses a cane, but more do to sciatic pain and R knee issues than the new knee. Patient able to do the steps at her camper and is having no issues besides trying to figure out when she wants to get her R knee fixed. Reported Pain Level Pain Score 0: Self Report Additional Pain Score Comments currently 0 and no more than 2/10 at its worst. Assessment PT Clinical Summary Maddie is a 67 year old female coming into the clinic after a L TKA on December 05, 2022. The patient has met all of her goals and has active range of motion of 0-110 degrees. The patient reports she feels okay with discharge knowing she will back in here after her R TKA which has not been scheduled yet. Discharged from skilled physical therapy. Plan of Care PT Services Indicated No
== END 2023-02-01 09:22 | disposition home or self-care (01) ==
LOC: ANHPT 12:30
PROVIDERS: PCP Family Medicine Adolescent Medicine; Visit Provider Orthopaedic Surgery
DX: Z47.1 Aftercare following joint replacement surgery (principal); Z96.652 Presence of left artificial knee joint
CPT/HCPCS: 97014; 97110; 97112; 97116; 97140; 97530; G0283

== ENCOUNTER 2023-05-07 07:47 | Outpatient (CLI) | payer MEDICARE, SELFPAY ==
[2023-05-07 09:35] LABS: Basophils Absolute Auto 0.1 K/mm3 (0.0-0.1); Basophils Percent Auto 0.8 % (0.2-1.2); Eosinophils Absolute Auto 0.2 K/mm3 (0-0.3); Eosinophils Percent Auto 1.8 % (0-4.4); Hemoglobin 14.6 g/dL (12.0-15.0); Immature Granulocyte Absolute 0.18 K/mm3 (0.00-0.031); Immature Granulocyte Percent A 1.8 % (0-0.5); Lymphocytes Absolute Auto 1.47 K/mm3 (0.9-3.2); Lymphocytes Percent Auto 14.4 % (18.3-44.2); Mean Corpuscular HGB Conc 31.7 g/dl (32-36); Mean Corpuscular Volume 91.3 fl (80-100); Mean Platelet Volume 9.9 fl (7.4-10.4); Monocytes Percent Auto 9.5 % (2.6-8.5); Neutrophils Absolute Auto 7.3 K/mm3 (1.3-6.7); Neutrophils Percent Auto 71.7 % (45.5-73.1); Platelet Count Result 407 k/mm3 (150-375); Red Blood Count 5.04 M/mm3 (4.2-5.4); Red Cell Distribution Width 17.2 % (11.5-14.5); White Blood Count 10.2 K/mm3 (4.5-10.0)
[2023-05-07 09:42] LABS: Albumin Level 4.4 g/dL (3.5-5.1)
[2023-05-07 09:47] LABS: Urine Cotinine NEGATIVE
[2023-05-07 09:53] LABS: Appearance Urine Cloudy (Clear); Bacteria Urine 3+ /hpf; Bilirubin Urine Negative (Negative); Blood Urine Negative (Negative); Color Urine Dark Yellow (Yellow); Glucose Urine UA Negative (Negative); Hyaline Casts Urine Present /lpf; Ketones Urine Trace mg/dL (Negative); Leukocyte Esterase Ur Trace LEU/UL (Negative); Need Manual Microscopic Reviewed; Nitrate Urine Negative (Negative); Non Pathogenic Casts >20; Protein Urine 1+ mg/dL (Negative); RBC Urine 0-2 /hpf (0-2); Specific Grav Ur 1.019 (1.001-1.035); Squamous Epithelial Cell Urine Moderate /hpf (Few); Urobilinogen Urine 0.2 mg/dL (<2.0); pH Urine 5.5 (5.0-9.0)
[2023-05-07 09:55] LABS: Add Urine Microscopic? YES
[2023-05-07 09:56] LABS: Partial Thromboplastin Time 26.2 SECONDS (22.3-36.8)
[2023-05-07 10:18] LABS: Hemoglobin A1C 5.7 % (<5.7)
== END 2023-05-07 07:48 | disposition home or self-care (01) ==
LOC: ANHSURGERY 07:52
PROVIDERS: PCP Family Medicine Adolescent Medicine; Visit Provider Orthopaedic Surgery
DX: M17.11 Unilateral primary osteoarthritis, right knee (principal); Z01.818 Encounter for other preprocedural examination
CPT/HCPCS: 80307; 81001; 82040; 83036; 85025; 85610; 85730; 87081; 87086

== ENCOUNTER 2023-05-22 18:16 | Observation (INO) | payer MEDICARE, SELFPAY ==
--- NOTE | 2023-05-07 07:31 | PC.NURSE ---
PRE-OP INSTRUCTIONS, PLEASE READ CAREFULLY Report to the Outpatient Waiting Room, entrance under the green pavilion located off [facility], at time _1000_ on date _05/21/23_. Planned Procedure Time: _1200_. PACK A SMALL OVERNIGHT BAG AND LEAVE IN THE CAR ALONG WITH YOUR WALKER Time changes happen often and if your time is changed the preop area will call you the afternoon before. - You and your visitor will be asked to self-screen and do not enter if you have any COVID symptoms. - A mask is optional within the hospital at this time. -VISITING HOURS 8AM-8PM Patients may have clear liquids (water, carbonated beverages, clear teas, apple juice) until 3 hours prior to surgery (0900 AM) with a maximum of 20 ounces. - No food from midnight until time of surgery Take the following medications with a SIP of water the morning of surgery: _BUPROPION, BUSPIRONE, DULOXETINE, SYMBICORT INHALER & PAIN MED, ALBUTEROL INHALER, NITROGLYCERIN IF NEEDED_ DO NOT STOP ANY OF YOUR OTHER PRESCRIPTION MEDICATIONS PRIOR TO SURGERY ?EXCEPT THE FOLLOWING Medications to discontinue per DR. CHAU/DR. PADILLA - _ELIQUIS 3 DAYS PRIOR TO SURGERY, Date to take last dose 05/17/23_ Medications to discontinue per ANESTHESIA - _MULTIVITAMIN 3 DAYS PRIOR TO SURGERY, Date to take last dose 05/17/23_ Please no make-up, nail iranian, hairspray, perfume, deodorant, or body powder the day of surgery. No jewelry (including any body piercings) or valuables the day of surgery, leave them at home. Please take a shower or bath the night before, or the morning of, surgery with an antibacterial soap. Wear comfortable, loose fitting clothing. - Jewelry must be removed prior to entering the operating room. Rings and piercings that are not removed may be cut off. - The hospital will not accept responsibility for valuables. - Please leave all valuables, including medications, at home the day of surgery. If you are going home after surgery, a licensed bung driver must drive you home. - NO public transportation without another adult if you receive anesthesia. - We recommend that an adult stay with you for 24 hours following discharge. - We also recommend that you do not drive, make important decision, drink alcoholic beverages, or take any drugs that were not prescribed by your health care provider for at least 24 hours after your discharge time. Follow any additional instructions given to you from your surgeon. If you or anyone in your household have experienced Covid symptoms in the past week, please notify your surgeon or the nurse liaison at the phone number below for possible testing. Instructions given to _PATIENT_and asked if any additional questions and then verbalized understanding. Patient advised to call surgeon office or pre surgery nurse liaison [phone] if any additional questions.
[2023-05-07 08:13] VITALS: BP 132/74; PULSE 92; RESP 18; TEMP 36.7; O2SAT 94; BMI 33.1
[2023-05-21] VITALS (18 sets, daily range): BP systolic 100–156; BP diastolic 58–84; PULSE 83–113; RESP 8–21; TEMP 36.1–36.7; O2SAT 91–100
[2023-05-21 10:48] LABS: Glucose Point of Care 90 mg/dl (65-105)
--- NOTE | 2023-05-21 10:48 | WPDHPUPDATE1 ---
History and Physical Update Update Date/Time: 05/21/23 10:48 History and Physical has been reviewed, including an updated exam of the patient. There are NO changes in the patient's condition. Risks, benefits, and alternatives have been discussed and questions answered. Patient agrees to proceed with procedure.
[2023-05-21] MEDS: ACETAMINOPHEN 500 MG TABLET 1000 MG PO (10:50)
[2023-05-21] MEDS: TRANEXAMIC ACID 1,000MG/ISO100 1,000 MG/100 ML BAG 200 MG IVPB (10:50)
[2023-05-21] MEDS: LACTATED RINGERS 1,000 ML 30 ML IV CONT ×2 (10:50→14:20)
--- NOTE | 2023-05-21 11:15 | WPDANESEPPF ---
Anes - Initial Pre Proc Eval Procedure: Operation Date: 05/21/23 12:00 Proposed Procedures p Right Total Knee Arthroplasty - Sean Porter MD Date/Time: 05/21/23 11:15 Surgeon: Sean Porter MD Pre Op Diagnosis: right knee djd Patient Data Age: 68 Gender: F Height: 1.65 m Weight: 90.3 kg Last Vital Signs Temp 98.0 F 05/07/23 08:13 Pulse 92 05/07/23 08:13 Resp 18 05/07/23 08:13 BP 132/74 05/07/23 08:13 Pulse Ox 94 05/07/23 08:13 O2 Del Method Room Air 05/07/23 08:13 Allergies Allergy/AdvReac Type Severity Reaction Status Date / Time Sulfa (Sulfonamide Allergy Intermediate MOUTH SORE Verified 05/13/23 10:52 Antibiotics) hydrocodone AdvReac Intermediate Migraine Verified 05/13/23 10:52 nitrofurantoin AdvReac Intermediate Rash, Verified 05/13/23 10:52 myalgias propoxyphene AdvReac Intermediate Migraine Verified 05/13/23 10:52 Home Medications Medication Instructions Recorded Confirmed Type albuterol sulfate 90 mcg/actuation 1 - 2 puff inhalation Q4-6H PRN 11/02/21 05/13/23 Rx aerosol inhaler shortness of breath or wheezing #8.5 grams oxybutynin chloride 15 mg 15 mg PO DAILY #90 tabs 06/06/22 05/13/23 Rx tablet,extended release 24 hr [id number]-lmut 8 mg-folic 400 1 tablet PO DAILY 08/08/22 05/13/23 History mcg-K 50 mcg-lutein 300 mcg tablet (Multivitamin Women 50 Plus) bupropion HCl 150 mg 24 hr tablet, 450 mg PO QAM #270 tabs 09/13/22 05/13/23 Rx extended release atorvastatin 40 mg tablet See Rx Instructions .Route 11/21/22 05/13/23 Rx .COMPLEX #90 tabs folic acid 1 mg tablet 2 mg PO DAILY 11/21/22 05/13/23 History nitroglycerin 0.4 mg sublingual 0.4 mg sublingual PRN PRN Spasms 11/21/22 05/13/23 History tablet oxycodone-acetaminophen 5 mg-325 1 tablet PO Q6H PRN pain #40 tabs 12/20/22 05/13/23 Rx mg tablet (Percocet) fluticasone 113 mcg-salmeterol 14 1 inh inhalation BID #1 ea 01/02/23 05/13/23 Rx mcg/actuation breath activated powdr duloxetine 60 mg capsule,delayed 60 mg PO DAILY #90 caps 01/11/23 05/13/23 Rx release metoclopramide HCl 10 mg tablet See Rx Instructions .Route 03/13/23 05/13/23 Rx .COMPLEX #90 tabs pantoprazole 40 mg tablet,delayed See Rx Instructions .Route 03/13/23 05/13/23 Rx release .COMPLEX #180 tabs apixaban 5 mg tablet (Eliquis) See Rx Instructions .Route 03/27/23 05/13/23 Rx .COMPLEX #180 tabs buspirone 10 mg tablet See Rx Instructions .Route 04/25/23 05/13/23 Rx .COMPLEX #180 tabs fenofibrate 160 mg tablet See Rx Instructions .Route 04/25/23 05/13/23 Rx .COMPLEX #90 tabs cyanocobalamin (vitamin B-12) 1,000 mcg PO DAILY 05/07/23 05/13/23 History 1,000 mcg tablet clindamycin HCl 300 mg capsule See Rx Instructions .Route 05/13/23 Rx .COMPLEX #10 caps chlorhexidine gluconate 4 % 1 applic topical DAILY #237 mL 05/14/23 Rx topical liquid (Hibiclens) diclofenac sodium 0.1 % eye drops 1 drp EACH EYE QID #2.5 mL 05/15/23 Rx Laboratory Tests 05/21/23 10:45 POC Capillary Glucose 90 mg/dl (65-105) Patient hx anesthesia problems: none Family hx anesthesia problems: none Results Review: All pre-operative results and documents have been reviewed as part of the pre-operative evaluation. [facility] Past Medical History Medical History Abnormal colonoscopy 04/15 polyps Repeat 04/18 Anxiety Bilateral calf pain Depression DVT (deep venous thrombosis) In 2001 after bunionectomy. Also 12/13, 06/15 GERD (gastroesophageal reflux disease) Hidradenitis Excision of hidradenitis from the left thigh in 2012. Hyperlipidemia Kidney stones Occult blood in stools Osteoarthritis Pain of left calf Pulmonary embolism In 2002 after right hip replacement. Right calf pain Skin cancer MARLENE (stress urinary incontinence, female) UTI (urinary tract infection) Surgical History Surgical History (Reviewed
[2023-05-21] MEDS: ceFAZolin 2 GM/D5W 50 ML 2 GM/50 ML BAG IVPB ×2 (11:54→20:00)
[2023-05-21] MEDS: GENTAMICIN BONE CEMENT REFOBACIN 1 EACH TOPICAL (12:28)
[2023-05-21] MEDS: TRANEXAMIC ACID 1,000 MG/10 ML AMPUL 1000 MG IV PUSH (13:20)
--- NOTE | 2023-05-21 14:25 | W.PM.PROC2 ---
Procedure Note - Detailed Date of Procedure 05/21/23 Pre-op Diagnosis right knee djd Post-op Diagnosis Same Procedure Performed RIGHT TKA Surgeon Sean Porter MD Anesthesia General Description of Procedure THE RIGHT KNEE WAS PREPPED AND DRAPED IN THE STERILE FASHION. THERE WAS A 15 DEGREE FLEXION CONTRACTURE.? A MIDLINE SKIN INCISION WAS MADE.? A MEDIAL PARAPATELLAR ARTHROTOMY WAS MADE.? THE PATELLA WAS EVERTED.? THERE WAS TRICOMPARTMENT DJD. THERE WAS MINIMAL PATELLA DJD.? AN INTRAMEDULLARY FRED WAS PLACED IN THE FEMUR.? A DISTAL FEMORAL CUT WAS MADE IN 5 DEGREES OF VALGUS REMOVING APPROXIMATELY 11 MM OF BONE FROM THE DISTAL FEMUR. THE FEMUR WAS SIZED TO 62.5.? A 62.5 FEMORAL CUTTING BLOCK WAS PLACED IN 3 DEGREES OF EXTERNAL ROTATION AND IN ALIGNMENT WITH MONTRELL'S LINE AND THE TRANSEPICONDYLAR AXIS. ANTERIOR POSTERIOR AND CHAMFER CUTS WERE MADE.? THE CUTS WERE EXCELLENT.? NEXT AN INTRAMEDULLARY CUTTING GUIDE WAS PLACED IN THE TIBIA.? A TRANS TIBIAL CUT WAS MADE ALONG THE LONG AXIS OF THE TIBIA.? APPROXIMATELY 10 MM OF BONE WAS REMOVED FROM THE HIGH SIDE OF THE TIBIA. THE TIBIA WAS THEN PLANED TO A SMOOTH SURFACE.? POSTERIOR FEMORAL OSTEOPHYTES WERE REMOVED FROM THE FEMORAL CONDYLES.? A 71 TIBIAL TRIAL WAS PLACED IN ALIGNMENT WITH THE 1/3 MEDIAL ASPECT OF THE TIBIAL TUBERCLE.? THEN A 62.5 FEMORAL TRIAL COMPONENT WAS PLACED.? BOTH HAD EXCELLENT FITS.? EVENTUALLY A 10 MM POLYETHYLENE TRIAL? COMPONENT WAS PLACED.? THE KNEE WAS TAKEN THROUGH A RANGE OF MOTION.? THE KNEE CAME OUT TO FULL EXTENSION.? THERE WAS NO ABNORMAL TILT TO THE PATELLA.? THERE WAS GOOD A/P AND VARUS/VALGUS STABILITY.? THERE WAS NO EXCESSIVE ROLL BACK WITH FLEXION.? THE TRIAL COMPONENTS WERE REMOVED. THEN A 62.5 FEMORAL COMPONENT AND 71 TIBIAL COMPONENT WITH A 10 POLYETHYLENE COMPONENT WERE CEMENTED INTO PLACE.? ONCE THE CEMENT WAS HARD THE KNEE WAS TAKEN THROUGH A ROM AGAIN AND FOUND TO BE STABLE WITH NO PATELLA TILT NO EXCESSIVE ROLL BACK WITH FLEXION AND GOOD STABILITY WITH COMPLETE AND FULL EXTENSION.? THE KNEE WAS IRRIGATED WITH STERILE BETADINE AND WATER FOR ABOUT 3 MINUTES.? THE BLEEDERS WERE CAUTERIZED.? THE ARTHROTOMY WAS REPAIRED WITH NUMBER 1 VICRYL.? THE SUB CUTANEOUS LAYER WITH 2-0 VICRYL AND THE SKIN WITH ENA.? THE WOUND WAS WASHED AND A STERILE DRESSING WAS APPLIED.? PATIENT WAS EXTUBATED. Estimated Blood Loss 100 Drains No Complications No immediate complications Condition Stable Disposition PACU
[2023-05-21] MEDS: fentaNYL CITRATE INJ (*CRX) 100 MCG/2 ML VIAL 25 MCG IV PUSH ×2 (16:11→17:00)
--- NOTE | 2023-05-21 16:49 | SUR.PHASEI ---
RN tried to called report to floor RN and he/she has to call back.
[2023-05-21] MEDS: SENNA/DOCUSATE SODIUM TABLET 2 TAB PO (18:18)
[2023-05-21] MEDS: CELECOXIB 200 MG CAPSULE PO (18:18)
[2023-05-21] MEDS: oxyCODONE/ACETAMINOPHEN (*CRX) 5-325 MG TABLET 1 TABLET PO (20:01)
[2023-05-21] MEDS: PANTOPRAZOLE 40 MG TABLET BY MOUTH (20:32)
[2023-05-21] MEDS: APIXABAN 5 MG TABLET BY MOUTH (20:32)
[2023-05-21] MEDS: METOCLOPRAMIDE HCL 10 MG TABLET BY MOUTH (20:32)
[2023-05-21] MEDS: busPIRone HCL 10 MG TABLET BY MOUTH (20:32)
[2023-05-22] VITALS (7 sets, daily range): BP systolic 110–124; BP diastolic 59–64; PULSE 72–90; RESP 15–18; TEMP 36.1–36.6; O2SAT 91–92
--- NOTE | ~2023-05-22 | XR_ITS ---
EXAMINATION: [id number] DATE: 05/21/2023 14:52 CDT INDICATION: Right total knee arthroplasty TECHNIQUE: 2 views right knee FINDINGS: There is a right total knee arthroplasty in expected position. Subcutaneous gas with fluid and air in the joint and overlying skin rachel are consistent with recent surgery. No evidence of p eriprosthetic fracture. IMPRESSION: 1. Recent right total knee arthroplasty. Reviewed, dictated and finalized at location L.
[2023-05-22] MEDS: oxyCODONE/ACETAMINOPHEN (*CRX) 5-325 MG TABLET 1 TABLET PO ×2 (00:13→21:14)
[2023-05-22] MEDS: ceFAZolin 2 GM/D5W 50 ML 2 GM/50 ML BAG IVPB ×2 (04:02→12:33)
[2023-05-22 06:46] LABS: Basophils Absolute Auto 0.1 K/mm3 (0.0-0.1); Basophils Percent Auto 0.4 % (0.2-1.2); Eosinophils Absolute Auto 0.2 K/mm3 (0-0.3); Hemoglobin 11.4 g/dL (12.0-15.0); Immature Granulocyte Absolute 0.21 K/mm3 (0.00-0.031); Immature Granulocyte Percent A 1.3 % (0-0.5); Lymphocytes Absolute Auto 1.89 K/mm3 (0.9-3.2); Lymphocytes Percent Auto 11.8 % (18.3-44.2); Mean Corpuscular HGB Conc 30.8 g/dl (32-36); Mean Corpuscular Hemoglobin 29.1 pg (26-34); Mean Corpuscular Volume 94.4 fl (80-100); Monocytes Absolute Auto 1.7 K/mm3 (0.1-0.6); Monocytes Percent Auto 10.4 % (2.6-8.5); Neutrophils Percent Auto 75.1 % (45.5-73.1); Platelet Count Result 343 k/mm3 (150-375); Red Blood Count 3.92 M/mm3 (4.2-5.4); Red Cell Distribution Width 16.9 % (11.5-14.5)
[2023-05-22 06:56] LABS: Anion Gap 4 mmol/L (8-16); Blood Urea Nitrogen 18 mg/dL (7-17); Calcium 8.9 mg/dL (8.4-10.2); Carbon Dioxide 30 mmol/L (22-30); Chloride 105 mmol/L (98-107); Estimated CRCL calculation 83 ml/min; Estimated Glomerular Filt Rate > 60; Glucose 93 mg/dL (65-110); Potassium 4.7 mmol/L (3.4-5.0); Sodium 139 mmol/L (137-145)
[2023-05-22] MEDS: oxyBUTYnin CHLORIDE XL 5 MG TAB.ER.24 15 MG PO (08:29)
[2023-05-22] MEDS: SENNA/DOCUSATE SODIUM TABLET 2 TAB PO ×2 (08:30→17:22)
[2023-05-22] MEDS: FENOFIBRATE 160 MG TABLET BY MOUTH (08:30)
[2023-05-22] MEDS: DULoxetine HCL 60 MG CAPSULE.DR PO (08:31)
[2023-05-22] MEDS: APIXABAN 5 MG TABLET BY MOUTH ×2 (08:31→21:14)
[2023-05-22] MEDS: PANTOPRAZOLE 40 MG TABLET BY MOUTH ×2 (08:31→21:14)
[2023-05-22] MEDS: CELECOXIB 200 MG CAPSULE PO ×2 (08:31→17:21)
[2023-05-22] MEDS: ATORVASTATIN 40 MG TABLET BY MOUTH (08:31)
[2023-05-22] MEDS: buPROPion HCL XL (24 HR) 150 MG TABCR 450 MG PO (08:32)
[2023-05-22] MEDS: oxyCODONE/ACETAMINOPHEN (*CRX) 5-325 MG TABLET 2 TABLET PO ×2 (08:32→14:58)
[2023-05-22] MEDS: busPIRone HCL 10 MG TABLET BY MOUTH ×2 (08:32→21:14)
[2023-05-22] MEDS: CYANOCOBALAMIN 1,000 MCG TABLET 1000 MCG PO (08:32)
[2023-05-22] MEDS: polyethylene glycoL 3350 17 GM POWD.PACK PO (08:34)
--- NOTE | 2023-05-22 10:30 | WPDANESPN ---
Anes - Prog Note Post-Op Date/Time: 05/22/23 10:30 Cardiovascular status: normal Respiratory status: normal Airway patency: baseline Mental status: baseline Post-Op hydration status: normal Vital Signs: Last Vital Signs Temp 36.1 C L 05/22/23 05:28 Pulse 77 05/22/23 05:28 Resp 15 05/22/23 05:28 BP 112/59 L 05/22/23 05:28 Pulse Ox 91 05/22/23 05:28 O2 Del Method Nasal Cannula 05/21/23 16:50 O2 Flow Rate 2 05/21/23 16:50 Pain Score (VAS): 10/05 I/O: Intake & Output 05/21/23 05/22/23 05/22/23 23:59 07:59 15:59 Intake Total 850 550 360 Balance 850 550 360 Laboratory Tests 05/22/23 05:27 05/22/23 05:27 05/21/23 05/21/23 05/22/23 10:45 11:24 05:27 WBC 16.0 H RBC 3.92 L Hgb 11.4 L D Hct 37.0 MCV 94.4 MCH 29.1 MCHC 30.8 L RDW 16.9 H Plt Count 343 MPV 10.0 Immature Gran % (Auto) 1.3 H Neut % (Auto) 75.1 H Lymph % (Auto) 11.8 L Perry % (Auto) 10.4 H Eos % (Auto) 1.0 Baso % (Auto) 0.4 Lymph # (Auto) 1.89 Perry # (Auto) 1.7 H Eos # (Auto) 0.2 Baso # (Auto) 0.1 Abs Immat Gran (auto) 0.21 H Absolute Neuts (auto) 12.0 H Absolute Nucleated RBC 0.0 Nucleated RBC % 0.0 Sodium 139 Potassium 4.7 Chloride 105 Carbon Dioxide 30 Anion Gap 4 L BUN 18 H Creatinine 0.60 L Estim Creat Clear Calc 83 Estimated GFR > 60 Glucose 93 POC Capillary Glucose 90 Calcium 8.9 Blood Type B Negative Antibody Screen Negative Post-procedural complaints: none Patient Feedback: Patient satisfied with anesthetic care.
--- NOTE | 2023-05-22 17:08 | PM.PNORT ---
Progress Note: A&P Assessment and Plan (1) History of knee replacement procedure of left knee: Code(s): Z96.652 - Presence of left artificial knee joint Status: Acute Assessment and Plan: POD 1 DOING WELL. WE WILL GIVE HER ANOTHER DAY TO IMPROVE HER PAINB CONTROL AND PT. CONTINUE CURRENT MANAGEMENT Subjective Subjective Date/Time Seen: 05/22/23 17:08 Interval history: POD 1 DOING WELL. HAVING PAIN CONTROL PROBLEMS AND SLOW PROGRESS WITH PT . NO CALF PAIN Exam Extrem: Other: VSS AFEBRILE DRESSING DRY NV INTACT NEG HONABS SIGN, THIFG CALF NON TENDER Objective Data Vital Signs Vital Signs: Vital Signs - 24 hr 05/21/23 17:30 05/21/23 17:45 05/21/23 18:15 Temperature 36.4 C 36.4 C 36.4 C Pulse Rate 96 99 106 H Respiratory Rate 14 15 15 Blood Pressure 127/80 126/69 134/66 Pulse Oximetry 100 96 93 Oxygen Delivery 05/21/23 19:15 05/21/23 22:53 05/22/23 02:53 Temperature 36.1 C L 36.1 C L 36.1 C L Pulse Rate 96 83 77 Respiratory Rate 15 15 15 Blood Pressure 111/63 100/58 L 112/59 L Pulse Oximetry 92 91 91 Oxygen Delivery 05/22/23 05:28 05/22/23 11:03 05/22/23 08:30 Temperature 36.1 C L Pulse Rate 77 Respiratory Rate 15 Blood Pressure 112/59 L Pulse Oximetry 91 Oxygen Delivery Room Air Room Air 05/22/23 10:53 Temperature 36.4 C Pulse Rate 74 Respiratory Rate 16 Blood Pressure 116/60 Pulse Oximetry 91 Oxygen Delivery Intake/Output Intake/Output: Intake & Output 05/19/23 05/20/23 05/21/23 05/22/23 23:59 23:59 23:59 23:59 Intake Total 900 1150 Balance 900 1150 Meds/Results Medications: Active Medications Generic Name Dose Route Start Last Admin Trade Name Freq PRN Reason Stop Dose Admin Acetaminophen 1,000 mg 05/21/23 17:08 Acetaminophen 500 Mg Tablet PO Q6H PRN Pain Rated 1-3 Apixaban 5 mg 05/21/23 21:00 05/22/23 08:31 Apixaban 5 Mg Tablet BY MOUTH 5 mg Q12HR ION Administration Atorvastatin Calcium 40 mg 05/22/23 09:00 05/22/23 08:31 Atorvastatin 40 Mg Tablet BY MOUTH 40 mg DAILY ION Administration Bupropion HCl 450 mg 05/22/23 09:00 05/22/23 08:32 Bupropion Hcl Xl (24 Hr) 150 Mg Tabcr PO 450 mg QAM ION Administration Buspirone HCl 10 mg 05/21/23 21:00 05/22/23 08:32 Buspirone Hcl 10 Mg Tablet BY MOUTH 10 mg Q12HR ION Administration Celecoxib 200 mg 05/21/23 17:08 05/22/23 08:31 Celecoxib 200 Mg Capsule PO 200 mg BIDWM ION Administration Cyanocobalamin 1,000 mcg 05/22/23 09:00 05/22/23 08:32 Cyanocobalamin 1,000 Mcg Tablet PO 1,000 mcg DAILY ION Administration Diazepam 5 mg 05/21/23 17:08 Diazepam (*Crx) 5 Mg Tablet PO Q8H PRN Spasms Diphenhydramine HCl 25 mg 05/21/23 17:08 Diphenhydramine Hcl Inj 50 Mg/Ml Vial IV PUSH Q6H PRN Itching Duloxetine HCl 60 mg 05/22/23 09:00 05/22/23 08:31 Duloxetine Hcl 60 Mg Capsule.Dr PO 60 mg DAILY ION Administration Fenofibrate 160 mg 05/22/23 09:00 05/22/23 08:30 Fenofibrate 160 Mg Tablet BY MOUTH 160 mg DAILY ION Administration Metoclopramide HCl 10 mg 05/21/23 21:00 05/21/23 20:32 Metoclopramide Hcl 10 Mg Tablet BY MOUTH 10 mg HS ION Administration Naloxone HCl 0.1 mg 05/21/23 17:08 Naloxone Hcl 0.4 Mg/Ml Vial IV PUSH Q2M PRN Opiate Reversal Nitroglycerin 0.4 mg 05/21/23 17:08 Nitroglycerin Sl 0.4 Mg Tablet SUBLINGUAL PRN PRN Esophageal Spasms Ondansetron HCl 4 mg 05/21/23 17:08 Ondansetron Inj 4 Mg/2 Ml Vial IV PUSH Q4H PRN Nausea And Vomiting Oxybutynin Chloride 15 mg 05/22/23 09:00 05/22/23 08:29 Oxybutynin Chloride Xl 5 Mg Tab.Er.24 PO 15 mg DAILY ION Administration Oxycodone/Acetaminophen 1 tablet 05/21/23 17:08 05/22/23 00:13 Oxycodone/Acetaminophen (*Crx) 5-325 Mg Tablet PO 1 tablet Q4H PRN Administration Pain Rated 4-6 Oxycodone/Acetaminophen
[2023-05-22] MEDS: METOCLOPRAMIDE HCL 10 MG TABLET BY MOUTH (21:14)
[2023-05-23] VITALS: BP 125/63; PULSE 95; RESP 18; TEMP 36.8; O2SAT 90
[2023-05-23] MEDS: oxyCODONE/ACETAMINOPHEN (*CRX) 5-325 MG TABLET 2 TABLET PO (04:33)
[2023-05-23 08:00] VITALS: O2SAT 93
[2023-05-23] MEDS: CELECOXIB 200 MG CAPSULE PO (09:11)
[2023-05-23] MEDS: APIXABAN 5 MG TABLET BY MOUTH (09:11)
[2023-05-23] MEDS: ATORVASTATIN 40 MG TABLET BY MOUTH (09:11)
[2023-05-23] MEDS: FENOFIBRATE 160 MG TABLET BY MOUTH (09:12)
[2023-05-23] MEDS: SENNA/DOCUSATE SODIUM TABLET 2 TAB PO (09:12)
[2023-05-23] MEDS: PANTOPRAZOLE 40 MG TABLET BY MOUTH (09:12)
[2023-05-23] MEDS: CYANOCOBALAMIN 1,000 MCG TABLET 1000 MCG PO (09:12)
[2023-05-23] MEDS: buPROPion HCL XL (24 HR) 150 MG TABCR 450 MG PO (09:12)
[2023-05-23] MEDS: oxyBUTYnin CHLORIDE XL 5 MG TAB.ER.24 15 MG PO (09:12)
[2023-05-23] MEDS: DULoxetine HCL 60 MG CAPSULE.DR PO (09:12)
[2023-05-23] MEDS: polyethylene glycoL 3350 17 GM POWD.PACK PO (09:13)
--- NOTE | 2023-05-23 09:15 | PM.PNORT ---
Progress Note: A&P Assessment and Plan (1) Status post total right knee replacement: Code(s): Z96.651 - Presence of right artificial knee joint Status: Acute Assessment and Plan: POD #2 : Right TKA Continue PT/OT. WBAT. Walker. HIGH FALL RISK. Continue pain control. Ice Knee. Protect skin. DVT prophylaxis with resumed Eliquis. SCDs. Incentive Spirometry Use reviewed. Monitor Dressing. Change prior to discharge. Bowel Regimen. Dispo: Home with Home Health pending progress with PT/OT Plan Reviewed postoperative labs, vitals and exam with attending MD, Dr. Porter. Agrees with current plan as indicated above. No further recommendations at this time. Subjective Subjective Date/Time Seen: 05/23/23 09:15 Post Op day: 2 Interval history: POD #2: Right TKA Patient doing well. Pain well controlled. Improvement with PT/OT. No new concerns. Hopeful for discharge today. Review of Systems Review of Systems: All systems reviewed & are unremarkable except as noted in HPI and below Constitutional: Constitutional: Denies fever(s) and Denies headache(s) ENT: Denies headache(s) Cardiovascular: Cardiovascular: Denies chest pain, Denies diaphoresis, Denies palpitations and Denies dyspnea Respiratory: Respiratory: Denies dyspnea Gastrointestinal: Gastrointestinal: Denies abdominal pain, Denies constipation, Denies nausea and Denies vomiting Genitourinary: Genitourinary: Reports nocturia and Denies dysuria Musculoskeletal: Musculoskeletal: Reports arthralgias (Right Knee ) and Reports joint swelling (Right Knee ) Neurologic: Denies headache(s) Endocrine: Endocrine: Denies palpitations Exam Const: General: comfortable and no acute distress Resp: Effort & Inspection: normal respiratory effort Cardio: Rate: regular rate Rhythm: regular rhythm GI: GI Palp: Yes Soft to palpation, No Tenderness to palpation present (GI) and No Guarding due to palpation present (GI) Skin: General skin exam: wounds noted Wounds: wounds noted Other: Incision c/d/i. No surrounding redness/warmth. No hematoma. Mild ecchymosis. No wound dehiscence Neuro: Cognition (Neuro): normal cognition Other: NV intact aside from block. Moves toes. Sensation intact to light touch. +ankle dorsiflexion/plantarflexion. Extrem: Right lower extremity: normal to inspection, knee Details: tenderness (diffuse, mild ) Location: of the patella, swelling (diffuse, consistent with surgical intervention ), abnormal ROM Details: pain with active ROM during, pain with passive ROM during and with range as follows (limited due to recent surgical intervention ); able to extend lower leg actively and ecchymosis (mild ), lower leg (Negative Booker's Sign ) Details: normal to inspection; no erythema and no tenderness, ankle (+ankle dorsiflexion/plantarflexion ) Details: normal to inspection, no edema and normal ROM; no tenderness, no swelling and no ecchymosis and foot Details: normal capillary refill, normal to inspection, vascular exam Details: dorsalis pedis pulse present and motor-sensory exam Details: light-touch normal; no tenderness Left lower extremity: normal to inspection Psych: Mental Status: mental status grossly normal Objective Data Vital Signs Vital Signs: Vital Signs - 24 hr 05/22/23 11:03 05/22/23 10:53 05/22/23 14:35 Temperature 36.4 C 36.4 C Pulse Rate 74 72 Respiratory Rate 16 17 Blood Pressure 116/60 120/64 Pulse Oximetry 91 92 Oxygen Delivery Room Air 05/22/23 18:53 05/22/23 21:13 05/23/23 00:00 Temperature 36.5 C 36.6 C 36.8 C Pulse Rate 72 90 95 Respiratory Rate 17 18 18 Blood Pressure 124/61 110/63 125/63 Pulse Oximetry 92 92 90 Oxygen Delivery 05/22/23 20:00 Temperature Pulse Rate Respiratory Rate Blood Pressure Pulse Oximetry 92 Oxygen Delivery Room Air Intake/Output Intake/Output: Intake & Output 05/20/23 05/21/23 05/22/23 05/23/23 23:59 23:59 23:59 23:59 Inta
[2023-05-23] MEDS: busPIRone HCL 10 MG TABLET BY MOUTH (09:17)
[2023-05-23] MEDS: oxyCODONE/ACETAMINOPHEN (*CRX) 5-325 MG TABLET 1 TABLET PO (10:57)
--- NOTE | 2023-05-23 11:17 | PC.NURSE ---
On 05/23/23, the student, [Freddie Belle], provided care and completed [facility] documentation on this patient. I have reviewed the student's documentation and agree with the findings.
--- NOTE | 2023-05-23 11:37 | PM.DS ---
DS: Admitting Diagnosis Discharge Date 05/23/23 Admitting Diagnosis Right Knee DJD DS: Discharge Diagnosis Discharge Diagnosis (1) Status post total right knee replacement: Code(s): Z96.651 - Presence of right artificial knee joint Status: Acute Assessment and Plan: POD #2 : Right TKA Continue PT/OT. WBAT. Walker. HIGH FALL RISK. Continue pain control. Ice Knee. Protect skin. DVT prophylaxis with resumed Eliquis. SCDs. Incentive Spirometry Use reviewed. Monitor Dressing. Change prior to discharge. Bowel Regimen. Dispo: Home with Home Health pending progress with PT/OT Plan s/p Right TKA DS: Summary Hospital Course Reason for hospitalization: Right TKA Hospital Course: 68 year old female admitted s/p Right TKA for postoperative medical management, pain control and mobilization with PT/OT. Patient progressed well with PT/OT. Pain and vitals remained stable throughout. The patient has been cleared to be discharged home with home health at this time. All discharge care instructions reviewed at depth. New medications reviewed. Follow up planned for 3 weeks in the outpatient orthopedic clinic with Dr. Porter. Status at Discharge Functional status at discharge: uses cane/walker Overall status at discharge: patient is progressing back to baseline Time Spent with Patient Time attestation: Total time spent providing and/or coordinating discharge services: Exam Const: General: comfortable and no acute distress Resp: Effort & Inspection: normal respiratory effort Cardio: Rate: regular rate Rhythm: regular rhythm GI: GI Palp: Yes Soft to palpation, No Tenderness to palpation present (GI) and No Guarding due to palpation present (GI) Skin: General skin exam: wounds noted Wounds: wounds noted Other: Incision c/d/i. No surrounding redness/warmth. No hematoma. Mild ecchymosis. No wound dehiscence Neuro: Cognition (Neuro): normal cognition Other: NV intact aside from block. Moves toes. Sensation intact to light touch. +ankle dorsiflexion/plantarflexion. Extrem: Right lower extremity: normal to inspection, knee Details: tenderness (diffuse, mild ) Location: of the patella, swelling (diffuse, consistent with surgical intervention ), abnormal ROM Details: pain with active ROM during, pain with passive ROM during and with range as follows (limited due to recent surgical intervention ); able to extend lower leg actively and ecchymosis (mild ), lower leg (Negative Booker's Sign ) Details: normal to inspection; no erythema and no tenderness, ankle (+ankle dorsiflexion/plantarflexion ) Details: normal to inspection, no edema and normal ROM; no tenderness, no swelling and no ecchymosis and foot Details: normal capillary refill, normal to inspection, vascular exam Details: dorsalis pedis pulse present and motor-sensory exam Details: light-touch normal; no tenderness Left lower extremity: normal to inspection Psych: Mental Status: mental status grossly normal Discharge Plan Discharge Attending physician on discharge: Sean Porter Discharging Clinician: Shannon Graham Patient Disposition: Home Health Service Activity: may shower, no driving and follow weight bearing status Diet: as tolerated Wound Care Instructions: follow printed instructions Discharge Instructions: Per Care Coordination, patient to discharge with [facility] ([phone]) for PT/OT and detention services. Agency will call to arrange initial visit. Post Op Total Knee Replacement Instructions Dr. Sean Porter [phone] Your dressing will be changed prior to your discharge. You will be sent home with one additional dressing to be changed on post op day 7 by the home health RN. Your rachel will be removed on the 14th day after surgery and steri-strips will be placed. Please practice good hand hygiene and do not touch your incision in order to prevent infection. You may shower with your dressing b
[2023-05-23] MEDS: ACETAMINOPHEN 500 MG TABLET 1000 MG PO (13:20)
== END 2023-05-23 14:15 | disposition home health service (06) ==
LOC: ANHSURGERY 18:21 → ANH2MED 05-23 08:17
PROVIDERS: Admitting Provider Orthopaedic Surgery; PCP Family Medicine Adolescent Medicine; Visit Provider Orthopaedic Surgery
PROC: (CPT 27447; principal; 2023-05-21 12:00)
DX: M17.11 Unilateral primary osteoarthritis, right knee (principal); D68.51 Activated protein C resistance; F41.9 Anxiety disorder, unspecified; F32.A Depression, unspecified; K21.9 Gastro-esophageal reflux disease without esophagitis; E78.5 Hyperlipidemia, unspecified; R06.09 Other forms of dyspnea; R09.81 Nasal congestion; R09.3 Abnormal sputum; R32 Unspecified urinary incontinence; M62.81 Muscle weakness (generalized); M62.838 Other muscle spasm; R35.0 Frequency of micturition; E66.9 Obesity, unspecified; Z68.33 Body mass index [BMI] 33.0-33.9, adult; Z96.652 Presence of left artificial knee joint; Z95.828 Presence of other vascular implants and grafts; Z87.891 Personal history of nicotine dependence; Z86.718 Personal history of other venous thrombosis and embolism; Z87.440 Personal history of urinary (tract) infections; Z79.01 Long term (current) use of anticoagulants; Z79.51 Long term (current) use of inhaled steroids; Z79.891 Long term (current) use of opiate analgesic; Z79.899 Other long term (current) drug therapy
CPT/HCPCS: 27447; 36415; 73560; 80048; 82948; 85025; 86850; 86900; 86901; 97110; 97116; 97161; 97165; 97530; 97535; A9270; C1713; C1776; G0378; J0171; J0690; J1100; J1170; J1885; J2250; J2270; J2405; J2704; J2795; J3010; J3370; J7120

== ENCOUNTER 2023-07-08 13:15 | Outpatient (RCR) | payer MEDICARE, SELFPAY ==
--- NOTE | 2023-06-11 14:33 | OPREHPOC ---
Outpatient Therapy Plan of Care This is a Multidisciplinary Plan of Care that may contain components documented by all disciplines (PT, OT, and ST.) PT Problem 1 PT Problem #1 Knowledge Deficit PT Goal 1 Goal 1* indep with HEP 2* correct gait pattern with assistive device/ progression to cane PT Problem 2 PT Problem #2 Pain PT Goal 1 Goal 1* pt report pain at worst rating of 3/10 PT Problem 3 PT Problem #3 Impaired Range of Motion PT Goal 1 Goal sitting active R knee ROM 1* extension 0' 2* flexion 105' PT Problem 4 PT Problem #4 Impaired Strength PT Goal 1 Goal 1* sit/stand transfer without use of UE x 5 reps 2* 5 reps sit/stand time of 18 seconds 3* self assessment LE functional scale rating of 36% limitation 4* 2 minute walking test distance of 325' with assistive device 5* pt report walking short distances in community.
--- NOTE | 2023-06-11 14:33 | PTOPEVAL1 ---
Assessment and note entered by Charu Garcia, PT Evaluation Information Assessment Status Evaluation Diagnosis s/p R TKR Onset 05-21-23 Subjective Information completed [facility] PT services; using wheeled walker, comfortable getting around house; used motorized cart when shopping this past weekend;one step at home-doing OK on it; doing sitting and supine exercises at home from previous PT, 10-20 reps of them; ACTIVITY: retired, active; prior to surgery, indep with all home and self care tasks; Reported Pain Level Pain Score Self Report Additional Pain Score Comments pain range 0-7/10;medial aspect of knee; increase pain: when first awaken in AM; sit too long; decrease pain: sit/rest, oxycodone every 2-3 days, tylenol; have not used ice past few days--reinforced use PRN; and elevation of leg; knee pain does not disrupt sleep, generally sleep on her back, discussed side sleep with pillow between knees; Assessment PT Clinical Summary Maddie is s/p R TKR; she recently had her other knee replaced, so she knows what to expect. She has completed [facility] services and has been doing her exercises at home. Self assessment with the LE functional scale is 59% limitation in activity level. She is using the wheeled walker and feels comfortable with her mobility. With the evaluation: she has R knee active ROM of (-5') to 85' with passive stretch to 90'; requires use of both hands for sit/stand transfer; 2 minute walking test distance of 250' with wheeled walker; decreased strength of hip and knee. Skilled PT services are indicated for modalities to decrease pain; therapeutic exercises to increase R hip and knee strength and ROM, with education for home exercise progression and gait with cane progression as tolerated. Plan of Care Interventions Electrical Stimulation,Gait Training,Hot Pack/Cold Pack,Manual Therapy,Neuro Re-education,Patient Education,Therapeutic Activities, Therapeutic Ex
--- NOTE | 2023-07-02 14:23 | PCPTNOTE ---
Patient called to cancel appointment 07/02/23 due to illness.
--- NOTE | 2023-07-08 13:59 | PTOPDC ---
Assessment and note entered by Charu Garcia, PT Evaluation Information Assessment Status Discharge Diagnosis s/p R TKR Onset 05-21-23 Subjective Information is doing all of her exercises at home; is able to do her shopping, holding onto the grocery cart; feels like ready to be finished with therapy; Reported Pain Level Pain Score Self Report Additional Pain Score Comments pain range in the past week of 0-2/10; tight over front and medial aspects of knee decrease pain: ice use; is not taking any pain meds for knee activity-- is doing all of her usual home activities; Assessment PT Clinical Summary Maddie has received 6 PT sessions. In sitting, active R knee ROM is 0-105', without pain. Compared to the initial evaluation: pain has decreased at the worst rating from 7 to 3/10; increased activity level with home activities; is not using an assistive device; 5 reps sit/stand time improved by 5 seconds; 2 minute walking test distance increased by 110'; self assessment score with LE functional scale improved from 59 to 31% limitation in activity level; indep with HEP. All the goals were achieved, except 5 reps sit/ stand time. Discharge PT services. She is to continue with her HEP and increase walking tolerance as able. Plan of Care PT Services Indicated No
== END 2023-07-09 08:38 | disposition home or self-care (01) ==
LOC: ANHPT 13:15
PROVIDERS: PCP Family Medicine Adolescent Medicine; Visit Provider Orthopaedic Surgery
DX: Z47.1 Aftercare following joint replacement surgery (principal); Z96.651 Presence of right artificial knee joint
CPT/HCPCS: 97110; 97116; 97161; 97530

== ENCOUNTER 2023-07-15 12:11 | Outpatient (CLI) | payer MEDICARE, SELFPAY ==
[2023-07-15 12:38] LABS: Basophils Absolute Auto 0.1 K/mm3 (0.0-0.1); Basophils Percent Auto 0.6 % (0.2-1.2); Eosinophils Absolute Auto 0.2 K/mm3 (0-0.3); Eosinophils Percent Auto 2.5 % (0-4.4); Hemoglobin 13.8 g/dL (12.0-15.0); Immature Granulocyte Absolute 0.17 K/mm3 (0.00-0.031); Immature Granulocyte Percent A 2.1 % (0-0.5); Lymphocytes Absolute Auto 1.33 K/mm3 (0.9-3.2); Lymphocytes Percent Auto 16.1 % (18.3-44.2); Mean Corpuscular HGB Conc 31.4 g/dl (32-36); Mean Corpuscular Hemoglobin 28.3 pg (26-34); Mean Corpuscular Volume 90.3 fl (80-100); Mean Platelet Volume 9.4 fl (7.4-10.4); Monocytes Absolute Auto 0.8 K/mm3 (0.1-0.6); Monocytes Percent Auto 9.2 % (2.6-8.5); Neutrophils Absolute Auto 5.7 K/mm3 (1.3-6.7); Neutrophils Percent Auto 69.5 % (45.5-73.1); Platelet Count Result 417 k/mm3 (150-375); Red Blood Count 4.87 M/mm3 (4.2-5.4); Red Cell Distribution Width 15.9 % (11.5-14.5); White Blood Count 8.2 K/mm3 (4.5-10.0)
[2023-07-15 18:25] LABS: Folic Acid > 20.0 ng/mL (2.76->20)
[2023-07-17 20:54] LABS: Homocysteine 15.9 umol/L (<10.4)
== END 2023-07-15 12:12 | disposition home or self-care (01) ==
LOC: ANHLAB 12:13
PROVIDERS: PCP Family Medicine Adolescent Medicine; Visit Provider Internal Medicine Hematology & Oncology
DX: D68.69 Other thrombophilia (principal)
CPT/HCPCS: 36415; 82607; 82746; 83090; 85025

== ENCOUNTER 2023-11-12 12:52 | Outpatient (CLI) | payer MEDICARE, SELFPAY ==
[2023-11-12 13:09] LABS: Basophils Absolute Auto 0.1 K/mm3 (0.0-0.1); Basophils Percent Auto 0.8 % (0.2-1.2); Eosinophils Absolute Auto 0.2 K/mm3 (0-0.3); Eosinophils Percent Auto 1.9 % (0-4.4); Hematocrit 48.8 % (37.0-47.0); Hemoglobin 15.2 g/dL (12.0-15.0); Immature Granulocyte Absolute 0.18 K/mm3 (0.00-0.031); Immature Granulocyte Percent A 1.7 % (0-0.5); Lymphocytes Absolute Auto 1.41 K/mm3 (0.9-3.2); Lymphocytes Percent Auto 13.1 % (18.3-44.2); Mean Corpuscular HGB Conc 31.1 g/dl (32-36); Mean Corpuscular Hemoglobin 28.6 pg (26-34); Mean Corpuscular Volume 91.7 fl (80-100); Mean Platelet Volume 9.4 fl (7.4-10.4); Monocytes Percent Auto 8.9 % (2.6-8.5); Neutrophils Absolute Auto 7.9 K/mm3 (1.3-6.7); Neutrophils Percent Auto 73.6 % (45.5-73.1); Platelet Count Result 494 k/mm3 (150-375); Red Blood Count 5.32 M/mm3 (4.2-5.4); Red Cell Distribution Width 17.1 % (11.5-14.5); White Blood Count 10.7 K/mm3 (4.5-10.0)
[2023-11-12 18:12] LABS: Folic Acid > 20.0 ng/mL (2.76->20); Vitamin B12 > 1000.0 pg/mL (239-931)
[2023-11-15 10:44] LABS: Methylmalonic Acid 189 nmol/L (87-318)
[2023-11-16 16:14] LABS: Homocysteine 17.3 umol/L (<10.4)
== END 2023-11-12 12:53 | disposition home or self-care (01) ==
PROVIDERS: PCP Family Medicine Adolescent Medicine; Visit Provider Internal Medicine Hematology & Oncology
DX: D68.69 Other thrombophilia (principal)
CPT/HCPCS: 36415; 82607; 82746; 83090; 83921; 85025

== ENCOUNTER 2023-11-20 11:11 | Outpatient (CLI) | payer MEDICARE, SELFPAY ==
[2023-11-20 13:41] LABS: Erythrocyte Sedimentation Rate 8 mm/hr (0-20)
[2023-11-20 15:19] LABS: CRP < 0.5 mg/dL (<1.0)
[2023-11-25 13:31] LABS: BCR/abl Prior Result Not Given
[2023-11-25 14:16] LABS: BCR/abl P190 Not Detected; BCR/abl P190 Chg YES; BCR/abl P210 Not Detected; BCR/abl P210 Chg YES
[2023-11-27 14:50] LABS: Block/Specimen ID Not Given; CALR Exon 9 Mutation Not Detected (Not Detected); CSF3R Exon 14/17 Mutation Not Detected (Not Detected); JAK2 Exon 12 Mutation Not Detected (Not Detected); JAK2 V617F Mutation Not Detected (Not Detected); MPL Exon 10 Mutation Not Detected (Not Detected); Specimen Source Blood
== END 2023-11-20 11:12 | disposition home or self-care (01) ==
PROVIDERS: PCP Family Medicine Adolescent Medicine; Visit Provider Internal Medicine Hematology & Oncology
DX: D72.829 Elevated white blood cell count, unspecified (principal); D47.3 Essential (hemorrhagic) thrombocythemia
CPT/HCPCS: 36415; 81206; 81207; 81219; 81270; 81279; 81339; 81479; 85652; 86140

== ENCOUNTER 2024-03-11 14:00 | Outpatient (CLI) | payer MEDICARE, SELFPAY ==
[2024-03-11 14:26] LABS: Basophils Percent Auto 0.4 % (0.2-1.2); Eosinophils Absolute Auto 0.2 K/mm3 (0-0.3); Eosinophils Percent Auto 1.9 % (0-4.4); Immature Granulocyte Absolute 0.17 K/mm3 (0.00-0.031); Immature Granulocyte Percent A 1.6 % (0-0.5); Lymphocytes Absolute Auto 1.26 K/mm3 (0.9-3.2); Lymphocytes Percent Auto 11.6 % (18.3-44.2); Mean Corpuscular HGB Conc 31.1 g/dl (32-36); Mean Corpuscular Hemoglobin 28.9 pg (26-34); Mean Platelet Volume 9.4 fl (7.4-10.4); Monocytes Percent Auto 9.5 % (2.6-8.5); Neutrophils Absolute Auto 8.2 K/mm3 (1.3-6.7); Platelet Count Result 423 k/mm3 (150-375); Red Blood Count 4.84 M/mm3 (4.2-5.4); Red Cell Distribution Width 16.1 % (11.5-14.5); White Blood Count 10.9 K/mm3 (4.5-10.0)
[2024-03-11 18:22] LABS: Folic Acid > 20.0 ng/mL (2.76->20)
[2024-03-12 12:54] LABS: Homocysteine 18.9 umol/L (<10.4)
== END 2024-03-11 14:01 | disposition home or self-care (01) ==
PROVIDERS: PCP Family Medicine Adolescent Medicine; Visit Provider Internal Medicine Hematology & Oncology
DX: D47.3 Essential (hemorrhagic) thrombocythemia (principal)
CPT/HCPCS: 36415; 82607; 82746; 83090; 85025

== ENCOUNTER 2024-04-06 04:02 | Day surgery (SDC) | payer MEDICARE, SELFPAY ==
[2024-03-19 14:05] VITALS: BMI 32.5
--- NOTE | 2024-03-19 14:37 | PC.NURSE ---
Spoke with _PATIENT_ regarding medication _PINO Pt. verbalizes understanding that the last dose is to be taken on _04/03/2024_ and the Endoscopist will instruct them when to restart after the procedure.
[2024-04-06 08:43] VITALS: BP 119/48; PULSE 105; RESP 18; TEMP 36.1; O2SAT 95
[2024-04-06] MEDS: LACTATED RINGERS 1,000 ML 150 ML IV CONT (08:49)
--- NOTE | 2024-04-06 09:41 | PM.HPGS ---
History of Present Illness History of Present Illness Consent: Risks, benefits, and alternatives have been discussed and questions answered. Patient agrees to proceed with procedure. Chief complaint: Personal hx. colon polyps Narrative: Maddie Abdi is a 68 year old female with colon polyps in 2020 Review of Systems Review of Systems: All systems reviewed & are unremarkable except as noted in HPI and below PMFSH Past Medical History Medical History (Updated 04/06/24 @ 09:42 by Abdiel Welch MD) Abnormal colonoscopy 04/15 polyps Repeat 04/18 Adenomatous colon polyp Anxiety Bilateral calf pain Bilateral primary osteoarthritis of knee Depression DVT (deep venous thrombosis) In 2001 after bunionectomy. Also 12/13, 06/15 GERD (gastroesophageal reflux disease) Hidradenitis Excision of hidradenitis from the left thigh in 2012. Kidney stones Occult blood in stools Osteoarthritis Pain of left calf Pulmonary embolism In 2002 after right hip replacement. Right calf pain Skin cancer MARLENE (stress urinary incontinence, female) UTI (urinary tract infection) Surgical History Surgical History (Updated 12/10/23 @ 06:57 by Lincoln Lerma MD) History of appendectomy History of bilateral hip replacements Right in 2002. Left in 2010. History of bunionectomy History of cataract extraction History of cholecystectomy History of hysterectomy History of total left knee replacement (11/2022) History of total right knee replacement (04/2023) Family History Family History Father Family history of alcoholism Mother Cerebrovascular accident Other Family history of arthritis Hypertension Social History Social History Social History: The patient is and lives with her in [place]. She designates her , Chris, as her surrogate decision maker and she wishes to be a full code. She is a lifelong nonsmoker and denies alcohol and illicit substance use. Smoking status: Never smoker Alcohol intake: current Substance use: never Substance use type: does not use Lack of Transportation: No Lack of Food: Never True Current Housing: I Have Housing Concerned About Future Housing: No Difficulty Paying Gas/Electric Bills: No Difficulty Paying for Meds: No Currently Unemployed: No Education: High School Diploma/GED Difficulty w/ Childcare or Family Care: No Living arrangements: with family Occupation/Education: retired Gender identity (if verbalized by the patient): Female Sexual Orientation (if Verbalized by the Patient): Straight or Heterosexual Spiritual care concerns: No Agree to blood products: Yes Meds Home Medications and Allergies Home Medications Medication Instructions Recorded Confirmed Type kdrvzmbc-zkto-ihag 8 mg-folic 400 1 tablet PO DAILY 08/08/22 03/19/24 History mcg-K 50 mcg-lutein 300 mcg tablet (Multivitamin Women 50 Plus) folic acid 1 mg tablet 1 mg PO DAILY 11/21/22 03/19/24 History fenofibrate 160 mg tablet See Rx Instructions .Route 04/25/23 03/19/24 Rx .COMPLEX #90 tabs cyanocobalamin (vitamin B-12) 1,000 mcg PO EVERY OTHER DAY 05/07/23 03/19/24 History 1,000 mcg tablet oxybutynin chloride 15 mg 15 mg PO DAILY #90 tabs 05/23/23 03/19/24 Rx tablet,extended release 24 hr duloxetine 60 mg capsule,delayed 60 mg PO DAILY #90 caps 09/16/23 03/19/24 Rx release nitroglycerin 0.4 mg sublingual 0.4 mg sublingual PRN PRN Spasms 12/14/23 03/19/24 Rx tablet #25 tabs apixaban 5 mg tablet (Eliquis) See Rx Instructions .Route 12/24/23 04/06/24 Rx .COMPLEX #180 tabs metoclopramide HCl 10 mg tablet See Rx Instructions .Route 02/02/24 03/19/24 Rx .COMPLEX #90 tabs pantoprazole 40 mg tablet,delayed See Rx Instructions .Route 02/02/24 03/19/24 Rx release .COMPLEX #180 tabs rosuvastatin 4
[2024-04-06 10:23] VITALS: BP 115/48; PULSE 83; RESP 24; O2SAT 97
[2024-04-06 10:33] VITALS: BP 112/62; PULSE 84; RESP 24; O2SAT 100
[2024-04-06 10:43] VITALS: BP 109/50; PULSE 84; RESP 20; O2SAT 100
--- NOTE | 2024-04-10 14:14 | WPDANESEPPF ---
Anes - Initial Pre Proc Eval Procedure: Operation Date: 04/06/24 10:00 Proposed Procedures p Colonoscopy - Abdiel Welch MD Date/Time: 04/10/24 14:14 Surgeon: Abdiel Welch MD Pre Op Diagnosis: Personal hx. colon polyps Patient Data Age: 68 Gender: F Height: 1.65 m Weight: 88.7 kg Last Vital Signs Temp 97 F L 04/06/24 08:43 Pulse 84 04/06/24 10:43 Resp 20 04/06/24 10:43 BP 109/50 L 04/06/24 10:43 Pulse Ox 100 04/06/24 10:43 O2 Del Method Room Air 04/06/24 10:43 Allergies Allergy/AdvReac Type Severity Reaction Status Date / Time hydrocodone Allergy Intermediate Migraine Verified 04/06/24 08:40 nitrofurantoin Allergy Intermediate Rash, Verified 04/06/24 08:40 myalgias propoxyphene Allergy Intermediate Migraine Verified 04/06/24 08:40 Sulfa (Sulfonamide Allergy Intermediate MOUTH SORE Verified 04/06/24 08:40 Antibiotics) Home Medications Medication Instructions Recorded Confirmed Type gogrnetc-knsv-mlnt 8 mg-folic 400 1 tablet PO DAILY 08/08/22 03/19/24 History mcg-K 50 mcg-lutein 300 mcg tablet (Multivitamin Women 50 Plus) folic acid 1 mg tablet 1 mg PO DAILY 11/21/22 03/19/24 History fenofibrate 160 mg tablet See Rx Instructions .Route 04/25/23 03/19/24 Rx .COMPLEX #90 tabs cyanocobalamin (vitamin B-12) 1,000 mcg PO EVERY OTHER DAY 05/07/23 03/19/24 History 1,000 mcg tablet oxybutynin chloride 15 mg 15 mg PO DAILY #90 tabs 05/23/23 03/19/24 Rx tablet,extended release 24 hr duloxetine 60 mg capsule,delayed 60 mg PO DAILY #90 caps 09/16/23 03/19/24 Rx release nitroglycerin 0.4 mg sublingual 0.4 mg sublingual PRN PRN Spasms 12/14/23 03/19/24 Rx tablet #25 tabs apixaban 5 mg tablet (Eliquis) See Rx Instructions .Route 12/24/23 04/06/24 Rx .COMPLEX #180 tabs metoclopramide HCl 10 mg tablet See Rx Instructions .Route 02/02/24 03/19/24 Rx .COMPLEX #90 tabs pantoprazole 40 mg tablet,delayed See Rx Instructions .Route 02/02/24 03/19/24 Rx release .COMPLEX #180 tabs rosuvastatin 40 mg tablet 40 mg PO DAILY #90 tabs 02/24/24 03/19/24 Rx diclofenac sodium 0.1 % eye drops 1 drp EACH EYE PRN PRN Dry Eye(S) 03/19/24 03/19/24 History bupropion HCl 150 mg 24 hr tablet, 450 mg PO QAM #270 tabs 04/05/24 Rx extended release buspirone 10 mg tablet 10 mg PO BID #180 tabs 04/10/24 Rx Patient hx anesthesia problems: none Family hx anesthesia problems: none Results Review: All pre-operative results and documents have been reviewed as part of the pre-operative evaluation. [facility] Past Medical History Medical History (Updated 04/06/24 @ 09:42 by Abdiel Welch MD) Abnormal colonoscopy 04/15 polyps Repeat 04/18 Adenomatous colon polyp Anxiety Bilateral calf pain Bilateral primary osteoarthritis of knee Depression DVT (deep venous thrombosis) In 2001 after bunionectomy. Also 12/13, 06/15 GERD (gastroesophageal reflux disease) Hidradenitis Excision of hidradenitis from the left thigh in 2012. Kidney stones Occult blood in stools Osteoarthritis Pain of left calf Pulmonary embolism In 2002 after right hip replacement. Right calf pain Skin cancer MARLENE (stress urinary incontinence, female) UTI (urinary tract infection) Surgical History Surgical History (Updated 12/10/23 @ 06:57 by Lincoln Lerma MD) History of appendectomy History of bilateral hip replacements Right in 2002. Left in 2010. History of bunionectomy History of cataract extraction History of cholecystectomy History of hysterectomy History of total left knee replacement (11/2022) History of total right knee replacement (04/2023) Family History Family History Father Family history of alcoholism Mother Cerebrovascular accident Other Family history of arthritis Hypertension Social History Social History (Reviewed 07/29/23 @ 14:38 by Juanita Franklin MA
== END 2024-04-06 10:55 | disposition home or self-care (01) ==
PROVIDERS: PCP Family Medicine Adolescent Medicine; Visit Provider Internal Medicine Gastroenterology
PROC: 0DJD8ZZ Inspection of Lower Intestinal Tract, Via Natural or Artificial Opening Endoscopic (ICD-10-PCS; CPT 45378; principal; 2024-04-06 10:00)
DX: Z12.11 Encounter for screening for malignant neoplasm of colon (principal); D12.2 Benign neoplasm of ascending colon; K57.30 Diverticulosis of large intestine without perforation or abscess without bleeding; F41.9 Anxiety disorder, unspecified; M17.0 Bilateral primary osteoarthritis of knee; F32.A Depression, unspecified; K21.9 Gastro-esophageal reflux disease without esophagitis; N39.3 Stress incontinence (female) (male); Z79.01 Long term (current) use of anticoagulants; Z98.890 Other specified postprocedural states; Z90.49 Acquired absence of other specified parts of digestive tract; Z87.442 Personal history of urinary calculi; Z86.711 Personal history of pulmonary embolism; Z85.828 Personal history of other malignant neoplasm of skin; Z86.718 Personal history of other venous thrombosis and embolism; Z82.49 Family history of ischemic heart disease and other diseases of the circulatory system
CPT/HCPCS: 45385; 88305; J2704; J7120

== ENCOUNTER 2024-09-15 12:07 | Outpatient (CLI) | payer MEDICARE, SELFPAY ==
[2024-09-15 12:26] LABS: Basophils Absolute Auto 0.1 K/mm3 (0.0-0.1); Basophils Percent Auto 0.7 % (0.2-1.2); Eosinophils Absolute Auto 0.2 K/mm3 (0-0.3); Eosinophils Percent Auto 2.2 % (0-4.4); Hemoglobin 14.6 g/dL (12.0-15.0); Immature Granulocyte Absolute 0.21 K/mm3 (0.00-0.031); Immature Granulocyte Percent A 2.1 % (0-0.5); Lymphocytes Absolute Auto 1.58 K/mm3 (0.9-3.2); Lymphocytes Percent Auto 15.8 % (18.3-44.2); Mean Corpuscular HGB Conc 31.1 g/dl (32-36); Mean Corpuscular Volume 93.3 fl (80-100); Mean Platelet Volume 9.3 fl (7.4-10.4); Monocytes Absolute Auto 1.1 K/mm3 (0.1-0.6); Monocytes Percent Auto 10.9 % (2.6-8.5); Neutrophils Absolute Auto 6.8 K/mm3 (1.3-6.7); Neutrophils Percent Auto 68.3 % (45.5-73.1); Platelet Count Result 410 k/mm3 (150-375); Red Blood Count 5.04 M/mm3 (4.2-5.4); Red Cell Distribution Width 15.7 % (11.5-14.5)
[2024-09-15 16:37] LABS: Anion Gap 8 mmol/L (4-12); Blood Urea Nitrogen 18 mg/dL (7-17); Calcium 9.9 mg/dL (8.4-10.2); Carbon Dioxide 28 mmol/L (22-30); Chloride 104 mmol/L (98-107); Estimated Glomerular Filt Rate > 60; Glucose 73 mg/dL (65-110); Potassium 4.8 mmol/L (3.4-5.0); Sodium 140 mmol/L (137-145)
[2024-09-15 21:52] LABS: Folic Acid > 20.0 ng/mL (2.76->20); Vitamin B12 > 1000.0 pg/mL (239-931)
[2024-09-17 11:58] LABS: Homocysteine 15.1 umol/L (<10.4)
--- OUTSIDE RECORDS SUMMARY | 2024-09-17 18:09 | XMS_ITS | Clinical Summary ---
Author Organization [facility] Address [address] [place] [address]. [place], [place] [address] [place] [id number] Care Team Providers Care Supervisor Wet End Name Role Phone Lincoln Lerma MD Primary Care Provider [phone] Allergies Active Allergy Reactions Criticality Noted Date Comments Hydrocodone Headache Low 10/06/2013 Headache Nitrofurantoin Nausea and Vomiting Low 12/03/2013 Chills,fever,N&V Propoxyphene Headache Low 12/03/2013 migraine Sulfa Antibiotics Other (see comment) Medium 1 Sores in mouth Hydrocodone-Acetaminophen Headache Low 06/15/2021 migraines Medications escitalopram 20 MG tablet Take 20 mg by mouth daily. Active fenofibrate 160 MG tablet Take 160 mg by mouth daily. Active atorvastatin 40 MG tablet Take 40 mg by mouth daily. Active busPIRone 10 MG tablet Take 10 mg by mouth 2 (two) times daily. Active buPROPion XL 300 MG 24 hr tablet Take 300 mg by mouth daily. Active pantoprazole EC 40 MG tablet Take 40 mg by mouth 2 (two) times a day. Active metoclopramide 10 MG tablet Take 10 mg by mouth nightly at bedtime. Active apixaban (ELIQUIS DVT/PE STARTER PACK) 5 MG tablet starter pack Take 2 tablets (10 mg total) by mouth 2 (two) times daily for 7 days, then take 1 tablet (5 mg total) by mouth 2 (two) times daily. 74 tablet 1 Active Additional Information Patient taking differently: 5 mg Oral 2 times daily, Take 2 tablets (10 mg total) by mouth 2 (two) times daily for 7 days, then take 1 tablet (5 mg total) by mouth 2 (two) times daily., Reported on 06/30/2021 nitroglycerin 0.[address] 0.4 mg under the tongue every 5 (five) minutes as needed for Chest Pain. For esophageal spasms Active ferrous sulfate, 65 mg elemental, 325 (65 FE) MG tablet Take 325 mg by mouth daily with breakfast. Active oxybutynin XL 15 MG 24 hr tablet Take 15 mg by mouth daily. Active Multiple Vitamin (MULTI VITAMIN DAILY OR) Take 1 tablet by mouth daily. Active diclofenac sodium 0.1 % ophthalmic solution Place 1 drop into both eyes as needed for Itching. 1 Active diclofenac EC 75 MG tablet Take 75 mg by mouth daily. Active furosemide 40 MG tablet Take 40 mg by mouth daily. Active nystatin powder 1 Active traMADol 50 MG tabletIndicatio ns:Acute Pain < 7 Day Supply Take 1 tablet (50 mg total) by mouth every 6 (six) hours as needed for Pain. Indications: Acute Pain < 7 Day Supply 20 tablet 2 Active triamcinolone acetonide (KENALOG) 10 MG/ML injection Kenalog 10 mg/mL suspension for injection In office injection administered by the provider Active neomycin-polymy sveta-hydrocortis one (CORTISPORIN) 3.5-76453-3 otic suspension neomycin-polymyx in-hydrocort 3.5 mg-10,000 unit/mL-1 % ear drops,susp Active mupirocin (BACTROBAN) 2 % ointment mupirocin 2 % topical ointment APPLY TO AFFECTED AREA 3 TIMES A DAY Active vitamin B-12 (CYANOCOBALAMIN ) 1000 MCG tablet Take 1,000 mcg by mouth daily. Active vitamin D3, cholecalciferol , 1000 UNIT Tab tablet Take 1,000 Units by mouth daily. Active SYMBICORT 160-4.5 MCG/ACT inhaler 2 Active SYMBICORT 80-4.5 MCG/ACT inhaler 2 Active VENTOLIN HFA 108 (90 Base) MCG/ACT inhaler 2 Active Active Problems Problem Noted Date Diagnosed Date Nephrolithiasis 06/18/2021 Disorder of shoulder 06/15/2021 Enthesopathy of hip region 06/15/2021 Joint replaced by other means 06/15/2021 Osteoarthrosis 06/15/2021 Pulmonary embolus ([facility]) 06/14/2021 Resolved Problems Problem Noted Date Diagnosed Date Resolved Date Sepsis ([facility]) 06/15/2021 Immunizations Name Administration Dates Next Due Fluzone High Dose - >Age 65 (Prefilled Syringe) 05/20/2020 Influenza (Generic) 05/17/2017,06/17/2015,2013 Influenza Adult (Generic) 05/17/2017,06/17/2015, 06/15/2014 Tdap (Adacel) 12/01/2021 Tdap (Generic) 01/10/2014 Family History Medical History Relation Comments Diabetes Father Arthritis Mother Hypertension Mother cpap Son Relation Status Comments Father Mother Son Alive Social History Tobacco Use Types Packs/Day Years Used Date Smoking Tobacco: Never Smokeless Tobacco: Never Tobacco Cessation:Counseling Given: No Alcohol Use Standard Drinks/Week Comments Not Currently 0 (1 standard drink = 0.6 oz pur e alcohol) PHQ-2 Answer Date Recorded PHQ-2 Score - If the patient scores above 3, please move on to questions 3-9 0 08/23/2021 Comments No Sex and Gender Information Value Date Recorded Sex Assigned at Not on file Legal Sex Female 11:39 AM CDT Gender Identity Not on file Sexual Orientation Not on file Last Filed Vital Signs Vital Sign Reading Time Taken Comments Blood Pressure 116/78 03/16/2022 9:25 AM CDT Pulse 91 03/16/2022 9:25 AM CDT Temperature 35.9 ??C (96.7 ??F) 03/16/2022 9:25 AM CD T Respiratory Rate 18 12/01/2021 10:03 PM CDT Oxygen Saturation 93% 03/16/2022 9:25 AM CDT Inhaled Oxygen Concentration - - Weight 91.2 kg (201 lb 1.6 oz) 03/16/2022 9:25 A M CDT Height 165.1 cm (5' 5 ) 12/01/2021 6:05 PM CDT Body Mass Index 33.46 12/01/2021 6:05 PM CDT Plan of Treatment Health Maintenance Due Date Last Done Comments Colorectal Cancer Screening Colonoscopy (10 Years) 1953 PHQ-2 (Physician [place]) 1965 Hepatitis C 1971 Mammogram Screening 1993 Zoster Vaccines (1 of 2) 2003 Annual Medicare Wellness Visit 2018 Dexa Scan (General) 2018 Pneumococcal Vaccine: 65+ Years (1 of 1 - PCV) 2018 COVID-19 Vaccine (4 - season) 2024 05/31/2021, 11/19/2020, 10/25/2020 Influenza Adult (#1) 2024 05/20/2020, 05/17/2017, 05/17/2017, Additional history exists RSV Immunization or 60+ Years (1 - 1-dose 75+ series) 2028 DTaP, Tdap and Td Vaccines (3 - Td or Tdap) 12/02/2031 12/01/2021, 01/10/2014 Meningococcal B Vaccine Aged Out No l onger eligible based on patient's age to complete this topic Meningococcal Vaccine Aged Out No chang elia eligible based on patient's age to complete this topic RSV Immunizations Under 20 Months Aged Out No longer eligible based on patient's age to complete this topic Goals Goal Patient Goal Type Associated Problems Recent Progress Patient-Stated? Author Establish Regular Follow-Ups with PCP General Heaven Butler, RN Health - patient able to perform ADLs independently General Heaven Butler, RN Medical Devices Implanted Type Area Planer Mill Grader Device Identifier Shelf Expiration Date Model / Serial / Lot Stent Ureteral [employer] [employer] Contour 6fr X 24cm - [id number] Implanted:Qty : 1 on 07/06/2021 by Delvin Gordon MD at [facility] Stent Right: Ureter [employer] [id number] 03/21/2024 [id number] Explanted Type Area Planer Mill Grader Device Identifier Shelf Expiration Date Model / Serial / Lot Stent Ureteral [place] [employer] Contour 6fr X 26cm - [id number] Implanted:Qty : 1 on 06/15/2021 by Delvin Gordon MD at [facility] Explanted:Qty : 1 on 07/06/[address] [facility] Stent Right: Urinary Bladder [employer] [id number] 03/21/2024 [id number] Insurance MEDICARE [employer] Advance Directives * Full Code (Latest Code Status on File) Date Activated Date Inactivated Comments 06/14/2021 10:34 PM 06/18/2021 5:15 PM Care Teams Supervisor Wet End Relationship Specialty Start Date End Date Lincoln Lerma MD [address] [address] PCP - General FAMILY PRACTICE 06/14/21
--- OUTSIDE RECORDS SUMMARY | 2024-09-17 18:09 | XMS_ITS | Patient Health Summary ---
Author Organization [facility] [employer] Address [address] [place] [address] Care Team Providers Care Sexual Health Physician Name Role Phone Lincoln Lerma MD Primary Care Provider + Lincoln Lerma MD Unavailable [phone] [facility],non-owned Affiliates and Associated Physician Practices is amultiple site organization consisting of ambulatory clinics and hospital sitesin [place], [place], [place] and [place]. This disclosure is being madepursuant to the Care Everywhere program and may not contain all information available regarding this patient. Last updated 18.[facility] Allergies * Propoxyphene N-Apap(Headache) -Low Criticality * Nitrofurantoin(Chills,fever,N&V) -Low Criticality * Sulfamethoxazole W-Trimethoprim(Mouth sores) -Low Criticality * Hydrocodone-Acetaminophen(Headache) -Low Criticality Medications * Be aware that medications may not be up to date on this document. Alwaysverify current medications with the patient. * atorvastatin (LIPITOR) 20 MG tablet Take 20 mg by mouth at bedtime. * diclofenac sodium EC (VOLTAREN) 75 MG tablet Take 75 mg by mouth 2 times daily. * buPROPion SR 12hr (ZYBAN) 150 MG tablet Take 150 mg by mouth 2 times daily. * estradiol (MINIVELLE) 0.05 MG/24HR patch Apply 1 Patch to skin every 3 days. * cyanocobalamin (VITAMIN B-12) 1000 MCG tablet Take 1,000 mcg by mouth once daily. * vitamin D, cholecalciferol, 1000 UNITS tablet Take 1,000 Units by mouth once daily. Social History Tobacco Use Types Packs/Day Years Used Date Smoking Tobacco: Never Smokeless Tobacco: Never Alcohol Use Standard Drinks/Week Comments No 0 (1 standard drink = 0.6 oz pur e alcohol) Sex and Gender Information Value Date Recorded Sex Assigned at Not on file Gender Identity Not on file Sexual Orientation Not on file Last Filed Vital Signs Vital Sign Reading Time Taken Comments Blood Pressure 134/80 12/03/2013 8:14 AM CDT Pulse 95 12/03/2013 8:20 AM CDT Temperature - - Respiratory Rate 18 12/03/2013 6:06 AM CDT Oxygen Saturation 95% 12/03/2013 8:20 AM CDT Inhaled Oxygen Concentration - - Weight 95.3 kg (210 lb) 12/03/2013 6:06 AM CDT Height 165.1 cm (5' 5 ) 12/03/2013 6:06 AM CDT Body Mass Index 34.95 12/03/2013 6:06 AM CDT Procedures * DERMATOPATHOLOGY(Performed 03/17/2020) * COLONOSCOPY SCREEN(Performed 12/03/2013) * ENDOSCOPY, COLON, SCREENING(Performed 12/03/2013) Results * DERMATOPATHOLOGY (03/17/2020 12:00 AM CDT) Case Report Dermatopathology Report ? Case: [id number] ? Authorizing Provider: ??Trina Goldsmith MD ? Collected: ? 03/17/2020 12:00 AM ? Ordering Location: ? [facility] ?Received: ?03/18/2020 09:22 AM ? Pathologist: ? Burkemper, Barbara M, MD ? Specimen: ?Skin, right ant scalp/hairline ? 0 1:49 PM CDT DERMATOPATHOLOGY LABORATORY Final Diagnosis Specimen A. SKIN, right ant scalp/hairline: BASAL CELL CARCINOMA, INFILTRATIVE PATTERN (C44.41) 0 1:49 PM CDT DERMATOPATHOLOGY LABORATORY Clinical History R/O SCC, irritated. 0 1:49 PM CDT DERMATOPATHOLOGY LABORATORY Gross Description Specimen A: Received is one formalin filled container labeled with the patient's name and designated right ant scalp/hairline. The specimen consists of a shave (2 pieces) measuring [id number] & [id number]. Jar 0. 0 1:49 PM CDT DERMATOPATHOLOGY LABORATORY Microscopic Description Specimen A. SKIN, right ant scalp/hairline: Within the dermis there are nodular aggregates of basaloid cells associated with fibromyxoid stroma and epithelial-stromal clefts. At the advancing margin of the neoplasm, there are smaller angulated nests that infiltrate the dermis. 0 1:49 PM CDT DERMATOPATHOLOGY LABORATORY Disclaimer An external and internal positive and negative controls are appropriate for the histochemical, immunohistochemical and immunofluorescence stain(s) in this case (if any), except where stated explicitly. The performance characteristics of the stain(s) cited in this report were developed and its performance characteristic determined by the Dermatopathology Laboratory at [facility], directed by Dr. Umang Casanova. These tests need not be, and therefore are not, approved by the [place] Food and Drug Administration. The tests are used for clinical purposes. Billing Codes Specimen Charges Stain Charges 99567 1 0 1:49 PM CDT DERMATOPATHOLOGY LABORATORY Embedded Images 0 1:49 PM CDT DERMATOPATHOLOGY LABORATORY Pathology/Cytolog y TISSUE SPECIMEN FROM SKIN / Unknown 03/17/2020 03/18/2020 9:22 AM CDT Trina Goldsmith MD LAB - PATHOLOGY/CYT OLOGY ORDERABLES DERMATOPATHOLOGY LABORATORY [facility] - Department of Dermatology [facility]/[address] [phone] * ENDOSCOPY, COLON, SCREENING (12/03/2013 5:55 AM CDT) Report Endoscopy POC __ _ Patient Name: Maddie Thorpe ?Procedure Date: 12/03/2013 5:55 AM ? Date of : 1955 ?Admit Type: Outpatient Age: 58 ? Gender: Female Attending MD: George Rajput MD ?? __ _ Procedure: ? Colonoscopy Indications: ? Abnormal barium enema Providers: ? George Rajput MD (Doctor), Lani Rivas RN, Gray ? Isadora, Fibre Optic Cable Splicer Referring MD: ?Lincoln Lerma MD (Referring MD) Medicines: ? Propofol per Anesthesia Complications: ? No immediate complications. __ _ Procedure: ? After I obtained informed consent, the scope was passed ? under direct vision. Throughout the procedure, the ? patient's blood pressure, pulse, and oxygen saturations ? were monitored continuously. The was introduced through ? the anus and advanced to the terminal ileum. The ? Colonoscope was introduced through the and advanced to. ? The colonoscopy was unusually difficult due to significant ? looping. Successful completion of the procedure was aided ? by performing the maneuvers documented (below) in this ? report. The patient tolerated the procedure well. The ? quality of the bowel preparation was excellent. ? Impression: ?- The entire examined colon is normal on direct and ? retroflexion views. Distal TI normal. Very loopy and ? difficult exam. Extended exam 39 minutes. Findings: ? The entire examined colon appeared normal on direct and retroflexion ? views. Terminal Ileum normal. No masses. polyps, AVM, diverticulosis, ? colitis __ _ Recommendation: ?- Repeat colonoscopy in 10 years to screen for colon ? cancer. ? - Discharge patient to home. Patient will follow-up with ? Dr. Lincoln Lerma. ? Procedure Code(s): ? --- Professional --- ? 53468, Colonoscopy, flexible, proximal to splenic flexure; diagnostic, ? with or without collection of specimen(s) by brushing or washing, with ? or without colon decompression (separate procedure) ? --- Technical --- ? 22399, Colonoscopy, flexible, proximal to splenic flexure; diagnostic, ? with or without collection of specimen(s) by brushing or washing, with ? or without colon decompression (separate procedure) Diagnosis Code(s): ? --- Professional --- ? 793.4, Nonspecific (abnormal) findings on radiological and other ? examination of gastrointestinal tract ? --- Technical --- ? 793.4, Nonspecific (abnormal) findings on radiological and other ? examination of gastrointestinal tract CPT copyright 2013 [employer]. All rights reserved. The codes documented in this report are preliminary and upon rail manager review may be revised to meet current compliance requirements. __ George Rajput MD 12/03/2013 7:51 AM Number of Addenda: 0 Note Initiated On: 12/03/2013 5:55 AM [facility] ENDOSCOPY 12/03/2013 5:55 AM CDT Narrative [facility] ENDOSCOPY - 12/03/2013 7:52 AM CDT Procedure Note George Rajput MD - 12/03/2013 7:52 AM CDT George Rajput MD GI PROCEDURE ORDERA BLES [facility] ENDOSCOPY Care Teams Sexual Health Physician Relationship Specialty Start Date End Date Lincoln Lerma MD [address] [place] [id number] PCP - General 03/17/20 Lincoln Lerma MD [address] [place] [address] Family Medicine 03/17/20
--- OUTSIDE RECORDS SUMMARY | 2024-09-17 18:09 | XMS_ITS | Clinical Summary ---
Author Organization [facility] Address [address] [place] [address] Care Team Providers Care Guard Immigration Name Role Phone Lincoln Lerma MD Primary Care Provider + Lincoln Lerma MD Unavailable [phone] Source Comments [facility],non-research medical center Affiliates and Associated Physician Practices is amultiple site organization consisting of ambulatory clinics and hospital sitesin [place], [place], [place]. This disclosure is being madepursuant to the Care Everywhere program and may not contain all information available regarding this patient. Last updated 18.[facility] Allergies Active Allergy Reactions Criticality Noted Date Comments Propoxyphene N-Apap Headache Low 12/03/2013 migraine Nitrofurantoin Low 12/03/2013 Chills,fever,N&V Sulfamethoxazole W-Trimethoprim Low 11/24 Mouth sores Hydrocodone-Acetaminophen Headache Low 12/03/2013 migraine Medications * Be aware that medications may not be up to date on this document. Alwaysverify current medications with the patient. Medication Sig Dispensed Refills Start Date End Date Status atorvastatin (LIPITOR) 20 MG tablet Take 20 mg by mouth at bedtime. Active diclofenac sodium EC (VOLTAREN) 75 MG tablet Take 75 mg by mouth 2 times daily. Active buPROPion SR 12hr (ZYBAN) 150 MG tablet Take 150 mg by mouth 2 times daily. Active estradiol (MINIVELLE) 0.05 MG/24HR patch Apply 1 Patch to skin every 3 days. Active cyanocobalamin (VITAMIN B-12) 1000 MCG tablet Take 1,000 mcg by mouth once daily. Active vitamin D, cholecalciferol, 1000 UNITS tablet Take 1,000 Units by mouth once daily. Active Family History Medical History Relation Name Comments Hypertension Mother Relation Name Status Comments Mother Social History Tobacco Use Types Packs/Day Years [...] Mass Index 34.95 12/03/2013 6:06 AM CDT Plan of Treatment Health Maintenance Due Date Last Done Comments BONE DENSITY TESTING 1955 COLOGUARD (AGES 45-75) - COL ON CA SCREENING 1953 CT COLONOGRAPHY - COLON CA SCREENING 1955 FIT - COLON CA SCREENING 1955 FLEX SIG - COLON CA SCREENING 1955 MAMMOGRAM 1955 MEDICARE AWV ? 12 MONTHS 1955 HEPATITIS C SCREENING 04/14/1971 DTAP/TDAP/TD VACCINES (1 - Tdap) 1972 PNEUMOCOCCAL VACCINE 50+ (1 of 1 - PCV) 2003 ZOSTER VACCINE (1 of 2) 2003 COLON MONITORING 12/04/2023 12/03/2013, 12/03/2013 COLONOSCOPY - COLON CA SCREENING 12/04/2023 12/03/2013, 12/03/2013 Colorectal Cancer Screening 12/04/2023 COVID-19 VACCINE (1 - 2023-2 5 season) 2024 INFLUENZA VACCINE (#1) 2024 DEPRESSION SCREENING 08/26/2024 Respiratory Syncytial Virus (RSV) Vaccine Pt: or over 60 yrs (1 - 1-dose 75+ series) 2028 HEPATITIS B VACCINE Aged Out No longe r eligible based on patient's age to complete this topic HIB VACCINE Aged Out No longer eligi ble based on patient's age to complete this topic HPV VACCINE Aged Out No longer eligi ble based on patient's age to complete this topic MENINGOCOCCAL (Group B) VACCINE Aged Out No longer eligible b ased on patient's age to complete this topic MENINGOCOCCAL VACCINE Aged Out No chang elia eligible based on patient's age to complete this topic Procedures Procedure Name Priority Date/Time Associated Diagnosis Comments ENDOSCOPY, COLON, SCREENING Routine 12/03/2013 5:55 AM CDT from Last 3 Months or Most Recently Relevant to Health Maintenance Results * ENDOSCOPY, COLON, SCREENING (12/03/2013 5:55 AM CDT) Report Endoscopy POC __ _ Patient Name: Maddie Thorpe ?Procedure Date: 12/03/2013 5:55 AM ? Date of : 1955 ?Admit Type: Outpatient Age: 58 ? Gender: Female Attending MD: George Rajput MD ?? __ _ Procedure: ? Colonoscopy Indications: ? Abnormal barium enema Providers: ? George Rajput MD (Doctor), Lani Rivas RN, Gray ? Isadora, Ore Washer Referring MD: ?Lincoln Lerma MD (Referring MD) [...] Procedure Code(s): ? --- Professional --- ? 98454, Colonoscopy, flexible, proximal to splenic flexure; diagnostic, ? with or without collection of specimen(s) by brushing or washing, with ? or without colon decompression (separate procedure) ? --- Technical --- ? 04620, Colonoscopy, flexible, proximal to splenic flexure; diagnostic, [...] examination of gastrointestinal tract CPT copyright 2013 [employer]. All rights reserved. The codes documented in this report are preliminary and upon cloud administrator review may be revised to meet current compliance requirements. __ George Rajput MD 12/03/2013 7:51 AM Number of Addenda: 0 Note Initiated On: 12/03/2013 5:55 AM [facility] ENDOSCOPY 12/03/2013 5:55 AM CDT Narrative [facility] ENDOSCOPY - 12/03/2013 7:52 AM CDT Procedure Note George Rajput MD - 12/03/2013 7:52 AM CDT George Rajput MD GI PROCEDURE ORDERA BLES [facility] ENDOSCOPY from Last 3 Months or Most Recently Relevant to Health Maintenance Care Teams Guard Immigration Relationship Specialty Start Date End Date Lincoln Lerma MD [address] [address] PCP - General 03/17/20 Lincoln Lerma MD [address] [address] Family Medicine 03/17/20
--- OUTSIDE RECORDS SUMMARY | 2024-09-17 18:09 | XMS_ITS | Referral Summary ---
Author Organization [facility] [employer] Address [address] [facility] [place] [address] Care Team Providers Care Ferryboat Operator Cable Name Role Phone Lincoln Lerma MD Primary Care Provider + Lincoln Lerma MD Unavailable [phone] Source Comments [facility],non-[facility] Affiliates and Associated Physician Practices is amultiple site organization consisting of ambulatory clinics and hospital sitesin [place], [place], [place] and [place]. This disclosure is being madepursuant to the Care Everywhere program and may not contain all information available regarding this patient. Last updated 18.[facility] Allergies Active Allergy Reactions Criticality Noted Date [...] 1,000 Units by mouth once daily. Active Social History Tobacco Use Types Packs/Day Years [...] 12/03/2013 6:06 AM CDT Plan of Treatment Not on file Procedures Procedure Name Priority Date/Time Associated Diagnosis [...] George Rajput MD (Doctor), Lani Rivas RN, Bradley ? Isadora, Field Coil Winder Referring MD: ?Lincoln Lerma MD (Referring MD) [...] Procedure Code(s): ? --- Professional --- ? 66090, Colonoscopy, flexible, proximal to splenic flexure; diagnostic, ? with or without collection of specimen(s) by brushing or washing, with ? or without colon decompression (separate procedure) ? --- Technical --- ? 31921, Colonoscopy, flexible, proximal to splenic flexure; diagnostic, [...] examination of gastrointestinal tract CPT copyright 2013 [employer]. All rights reserved. The codes documented in this report are preliminary and upon validation consultant review may be revised to meet current compliance requirements. __ George Rajput MD 12/03/2013 7:51 AM Number of Addenda: 0 Note Initiated On: 12/03/2013 5:55 AM [facility] ENDOSCOPY 12/03/2013 5:55 AM CDT Narrative [facility] ENDOSCOPY - 12/03/2013 7:52 AM CDT Procedure Note George Rajput MD - 12/03/2013 7:52 AM CDT George Rajput MD GI PROCEDURE [facility]A [facility] from Last 3 Months or Most Recently Relevant to Health Maintenance Care Teams Ferryboat Operator Cable Relationship Specialty Start Date End Date Lincoln Lerma MD [address] [place] [id number] PCP - General 03/17/20 Lincoln Lerma MD [address] [place] [address] Family Medicine 03/17/20
--- OUTSIDE RECORDS SUMMARY | 2024-09-17 18:09 | XMS_ITS | Encounter Summary ---
Author Organization [facility] Address [address] [facility] [facility] [place] [address] Care Team Providers Care Pulverizing And Sifting Operator Name Role Phone Lincoln Lerma MD Primary Care Provider + Lincoln Lerma MD Unavailable [phone] Encounter Details Date Type Department Care Team (Late st Contact Info) Description 03/18/2020 Lab Requisition [facility] Care DermPath Lab [address] [facility] [place] [address] Trina Goldsmith MD [address] [facility] [address] [place] [address] Social History Tobacco Use Types Packs/Day Years Used Date Smoking Tobacco: Never Assessed Sex and Gender Information Value Date Recorded Sex Assigned at Not on file Gender Identity Not on file Sexual Orientation Not on file documented as of this encounter Plan of Treatment Not on file documented as of this encounter Procedures Procedure Name Priority Date/Time Associated Diagnosis Comments DERMATOPATHOLOGY Routine 03/17/2020 12:0 0 AM CDT documented in this encounter Results * DERMATOPATHOLOGY (03/17/2020 12:00 AM CDT) Case Report Dermatopathology Report ? Case: [id number] ? Authorizing Provider: ??Trina Goldsmith MD ? Collected: ? 03/17/2020 12:00 AM ? Ordering Location: ? [facility] ?Received: ?03/18/2020 09:22 AM ? Pathologist: ? Barbara Meek MD ? Specimen: ?Skin, right ant scalp/hairline [...] consists of a shave (2 pieces) measuring [id number] & [id number]. Jar 0. 0 1:49 PM CDT DERMATOPATHOLOGY [...] characteristic determined by the Dermatopathology Laboratory at [facility], directed by Dr. Umang Casanova. These tests need not be, and therefore are not, approved by the [place] Food and Drug Administration. The tests are used for clinical purposes. Billing Codes Specimen Charges Stain Charges 69971 1 0 1:49 PM CDT DERMATOPATHOLOGY LABORATORY Embedded Images 0 1:49 PM CDT DERMATOPATHOLOGY LABORATORY Pathology/Cytolog y TISSUE SPECIMEN FROM SKIN / Unknown 03/17/2020 03/18/2020 9:22 AM CDT Trina Goldsmith MD LAB - PATHOLOGY/CYT OLOGY ORDERABLES DERMATOPATHOLOGY LABORATORY [facility] - Department of Dermatology [facility]/[address] [phone] documented in this encounter Visit Diagnoses Not on filedocumented in this encounter Care Teams Pulverizing And Sifting Operator Relationship Specialty Start Date End Date Lincoln Lerma MD [address] [place] [place] [id number] PCP - General 03/17/20 Lincoln Lerma MD [address] [address] Family Medicine 03/17/20 documented as of this encounter
--- OUTSIDE RECORDS SUMMARY | 2024-09-17 18:09 | XMS_ITS | Clinical Summary ---
Author Organization [facility] Address [address] [place] [address] Care Team Providers Care Laundry Marker Supervisor Name Role Phone Lincoln Lerma MD Primary Care Provider [phone] Allergies Active Allergy Reactions Criticality Noted Date Comments Acetaminophen Headache Low 10/06/2013 Headache Hydrocodone Headache Low 10/06/2013 Headache Headache Hydrocodone-Acetaminophen Headache Low 12/03/2013 migraine migraine migraines Nitrofurantoin Nausea and Vomiting,Swelling Medium 10/12/2013 Chills,fever,N&V Swelling Chills,fever,N&V Chills,fever,N&V Propoxyphene Headache Low 12/03/2013 migraine migraine Sulfa (Sulfonamide Antibiotics) Other (See Comments) Medium 06/14/2021 Sores in mouth Medications albuterol sulfate HFA 90 mcg/actuation aerosol inhaler 11/08/19 22 Active Eliquis 5 mg tablet 09/18/19 23 Active atorvastatin (LIPITOR) 40 mg tablet 09/05/19 23 Active Symbicort 160-4.5 mcg/actuation HFA Aerosol Inhaler 07/23/20 22 Active buPROPion HCL (WELLBUTRIN XL) 150 mg Extended Release 24 hour tablet TAKE 3 TABLETS BY MOUTH EVERY MORNING 07/30/20 22 Active busPIRone (BUSPAR) 10 mg tablet 07/23/20 22 Active DULoxetine (CYMBALTA) 60 mg Capsule, Delayed Release(E.C.) Take 60 mg by mouth daily. 07/30/20 22 Active fenofibrate (LOFIBRA) 160 mg Tablet 09/17/19 23 Active metoclopramide HCl (REGLAN) 10 mg tablet 06/29/20 22 Active nitroglycerin (NITROSTAT) 0.4 mg Tablet, Sublingual Place 0.4 mg under tongue every 5 minutes as needed. Active oxybutynin chloride (DITROPAN XL) 15 mg Extended Release 24 hour tablet oxybutynin chloride ER 15 mg tablet,extended release 24 hr Active pantoprazole (PROTONIX) 40 mg Tablet, Delayed Release (E.C.) pantoprazole 40 mg tablet,delayed release Active multivitamins with iron Tablet Take 1 Tablet by mouth daily. Active cyanocobalamin 1,000 mcg Tablet Take 1,000 mcg by mouth daily. Active folic acid (FOLVITE) 1 mg tabletIndications:S econdary hypercoagulable state Take 1 Tablet (1 mg) by mouth daily. 90 Tablet 3 08/03/20 24 Active Active Problems No known active problems Encounters Date Type Department Care Team Description 09/17/2024 Orders Only [facility] Oncology and Hematology - [place] [address] [place] [id number] Juan Lopez MD 09/16/2024 Orders Only [facility]ology - [place] [address] [place] [address] Juan Lopez MD 09/16/2024 Telephone [facility] - [place] [address] [place] [id number] Juan Lopez MD labs for appointment 08/03/2024 Refill [facility]ology - [place] [address] [place] [phone] Juan Lopez MD Secondary hypercoagulable state 06/30/2024 External Device Data [facility] ABSTRACTION Provider, Abstract from Last 3 Months Family History Medical History Relation Name Comments Diabetes Father No Known Problems Mother No Known Problems Son Relation Name Status Comments Father Mother Son Alive Social History Tobacco Use Types Packs/Day Years Used Date Smoking Tobacco: Never Smokeless Tobacco: Never Tobacco Cessation:Counseling Given: Not Answered Alcohol Use Standard Drinks/Week Comments Yes 0 (1 standard drink = 0.6 oz pur e alcohol) socially Comments Unknown Sex and Gender Information Value Date Recorded Sex Assigned at Not on file Legal Sex Female 10:51 AM SETTER MACHINE Gender Identity Not on file Sexual Orientation Not on file Last Filed Vital Signs Vital Sign Reading Time Taken Comments Blood Pressure 122/77 03/18/2024 2:14 PM CDT Pulse 99 03/18/2024 2:14 PM CDT Temperature 36.4 ??C (97.5 ??F) 03/18/2024 2:14 PM CD T Respiratory Rate 16 03/18/2024 2:14 PM CDT Oxygen Saturation 93% 03/18/2024 2:14 PM CDT Inhaled Oxygen Concentration - - Weight 88.5 kg (195 lb) 03/18/2024 2:14 PM CDT Height 165.1 cm (5' 5 ) 09/19/2022 1:25 PM SETTER MACHINE Body Mass Index 32.45 09/19/2022 1:25 PM SETTER MACHINE Plan of Treatment Upcoming Encounters Date Type Department Care Team (Late st Contact Info) Description 09/18/2024 10:30 AM SETTER MACHINE Office Visit [facility] Oncology and Hematology - [place] [address] [facility] [address] [place] [address] Juan Lopez MD [address] [facility] [address] [place] [address] Health Maintenance Due Date Last Done Comments Traditional Medicare (ACO) A nnual Wellness Visit 1972 FIT-DNA Q 3 years 1998 FIT/FOBT Q 1 year 1998 Flex Sig/CT Colonography Q 5 years 1998 PNEUMOCOCCAL VACCINE 65+ YEA RS (1 of 1 - PCV) 2003 ZOSTER VACCINE (1 of 2) 2003 OSTEOPOROSIS SCREENING 2018 BREAST CANCER SCREENING 08/07/2023 08/07/20 22, 05/10/2021, 03/08/2020, Additional history exists INFLUENZA VACCINE (#1) 2024 0, 05/17/2017, 06/17/2015, Additional history exists COVID-19 Vaccine (3 - 2023-2 5 season) 2024 11/19/2020, 10/25/2020 RSV VACCINE (60+ or ) (1 - 1-dose 75+ series) 2028 DTAP/TDAP/TD VACCINES (3 - T d or Tdap) 12/02/2031 12/01/2021, 01/10/2014 COLORECTAL SCREENING 04/06/2034 04/06/2024, 04/11/2021, 04/11/2021 Colorectal Cancer Screening 04/06/2034 Procedures Procedure Name Priority Date/Time Associated Diagnosis Comments BASIC METABOLIC PANEL Routine 09/15/2024 4:06 PM SETTER MACHINE CBC WITH DIFFERENTIAL Routine 09/15/2024 3:37 PM SETTER MACHINE from Last 3 Months Results * BASIC METABOLIC PANEL (09/15/2024 4:06 PM SETTER MACHINE) Blood Juan Lopez MD CHEMISTRY ORDERABLES Final Resu lt * CBC WITH DIFFERENTIAL (09/15/2024 3:37 PM SETTER MACHINE) Blood us Juan Lopez MD HEMATOLOGY ORDERABLES Final Res ult from Last 3 Months Insurance MEDICARE PART A AND B [employer] MEDICARE SUPP AESSI Care Teams Laundry Marker Supervisor Relationship Specialty Start Date End Date Lincoln Lerma MD [address] [address] PCP - General Family Practice 09/19/22
--- OUTSIDE RECORDS SUMMARY | 2024-09-17 18:09 | XMS_ITS | Clinical Summary ---
Author Organization [facility] Address [address] [place] [address] Care Team Providers Care Pickling Drum Operator Name Role Phone Pcp, No Primary Care Provider [phone] Social History Tobacco Use Types Packs/Day Years Used Date Smoking Tobacco: Never Assessed Comments Unknown Sex and Gender Information Value Date Recorded Sex Assigned at Not on file Legal Sex Female 9:18 AM EDT Gender Identity Not on file Sexual Orientation Not on file Plan of Treatment Health Maintenance Due Date Last Done Comments Colorectal Cancer: COLONOSCO PY Screening every 10 yrs (or Modifier) 1955 Depression: Screening Annual ly using PHQ-2/9 in Adults 18 yrs or above (or HM Modifier)([facility]) 1971 Hepatitis C Virus Infection in Adolescents and Adults: Screening (or Modifier) ([facility]) 1971 [facility] Screening Reminder: Maria padilla for all adults ([facility]) 1971 Tobacco Smoking Cessation: i n Adults excluding Women: Behavioral and Pharmacotherapy Interventions ([facility]) 1971 DTaP/Tdap/Td Vaccines ([facility]) (1 - Tdap) 1972 Colorectal Cancer Screening 45 -75 Yrs (or HM Modifier ) 1998 Colorectal Cancer: FLEXIBLE SIGMOIDOSCOPY Screening every 5 yrs 1998 Colorectal Cancer: Fecal Imm unochemical Test (FIT) Annually [facility] 1998 Colorectal Cancer: High-sens itivity gFOBT Screening Annually [facility] 1998 Colorectal Cancer: Stool Col oguard Screening every 3 yrs 1998 Colorectal Cancer:CT Colonography Screening every 5 yr s 1998 Lipid Screening: Every 5 yrs for Women aged 45+ (or HM Modifier) ([facility] [facility]) 1999 Breast Cancer: Screening Maria padilla age 50-74 yrs (or HM Modifier)([facility]) 2003 Zoster/Shingles Vaccine Seri es Screening: Adults aged 18+ yrs (or HM Modifiers)([facility]) (1 of 2) 2003 RSV Vaccines (1 - 1-dose 60+ series) 2013 Osteoporosis Screening to Pr event Fractures: Women aged 65 years+ ([facility]) 2018 Pneumococcal Vaccination Scr eening: Patients 65+ yrs of age ([facility]) (1 of 1 - PCV) 2018 Flu Vaccination: Ages 65+: Y early High Dose Recommended (or Modifier)([facility]) 03/26/2024 COVID-19 Vaccine Screening: Initial Series and Booster Status ([facility]) ( season) 2024 Medical Devices Not on file Care Teams Pickling Drum Operator Relationship Specialty Start Date End Date Pcp, No PCP - General Family Medicine 04/20/21
== END 2024-09-15 12:08 | disposition home or self-care (01) ==
LOC: ANHLAB 12:10
PROVIDERS: PCP Family Medicine Adolescent Medicine; Visit Provider Internal Medicine Hematology & Oncology
DX: D68.69 Other thrombophilia (principal)
CPT/HCPCS: 36415; 80048; 82607; 82746; 83090; 85025

== ENCOUNTER 2025-03-22 11:16 | Outpatient (CLI) | payer MEDICARE, SELFPAY ==
[2025-03-22 11:34] LABS: Hematocrit 46.3 % (37.0-47.0); Hemoglobin 14.6 g/dL (12.0-15.0); Immature Granulocyte Percent A 1.5 % (0-0.5); Lymphocytes Absolute Auto 1.50 K/mm3 (0.9-3.2); Mean Corpuscular HGB Conc 31.5 g/dl (32-36); Mean Corpuscular Hemoglobin 29.1 pg (26-34); Mean Corpuscular Volume 92.4 fl (80-100); Nucleated Red Blood Cells Absolute Auto 0.000 K/mm3 (0.0-0.012); Nucleated Red Blood Cells Perc 0.0 % (0.0-0.2); Platelet Count Result 394 k/mm3 (150-375); Red Blood Count 5.01 M/mm3 (4.2-5.4); White Blood Count 10.5 K/mm3 (4.5-10.0)
[2025-03-22 16:35] LABS: Anion Gap 9 mmol/L (4-12); Blood Urea Nitrogen 17 mg/dL (7-17); Calcium 10.3 mg/dL (8.4-10.2); Carbon Dioxide 25 mmol/L (22-30); Chloride 104 mmol/L (98-107); Estimated Glomerular Filt Rate > 60; Glucose 90 mg/dL (65-110); Potassium 4.6 mmol/L (3.4-5.0); Sodium 138 mmol/L (137-145)
[2025-03-22 17:47] LABS: Vitamin B12 728.0 pg/mL (239-931)
== END 2025-03-22 11:17 | disposition home or self-care (01) ==
LOC: ANHLAB 11:17
PROVIDERS: PCP Family Medicine Adolescent Medicine; Visit Provider Internal Medicine Hematology & Oncology
DX: D68.69 Other thrombophilia (principal)
CPT/HCPCS: 36415; 80048; 82607; 82746; 83090; 85025

== ENCOUNTER → 2025-05-11 11:32 | Outpatient (CLI) | payer MEDICARE, SELFPAY ==
--- NOTE | ~2025-05-11 | XR_ITS ---
EXAMINATION: XR hip LT 2V w AP pelvis, 05/11/2025 11:37 CDT HISTORY: M25.552 - Pain in lt hip 3months fell 2x weeks ago COMPARISON: No comparisons available. Findings: No acute fracture or malalignment. Left arthroplasty intact Soft tissues unremarkable. Impression: No acute fracture or malalignment. Reviewed, dictated and finalized at location A. Impression: No acute fracture or malalignment.
== END ==
LOC: EXPCRAD 11:34
PROVIDERS: PCP Family Medicine; Visit Provider Family Medicine
DX: M25.552 Pain in left hip (principal)
CPT/HCPCS: 73502

== ENCOUNTER 2025-07-28 13:35 | Outpatient (CLI) | payer MEDICARE, SELFPAY ==
--- OUTSIDE RECORDS SUMMARY | 2025-07-28 14:48 | XMS_ITS | Clinical Summary ---
Author Organization [facility] Address [address] [place] [address] Care Team Providers Care Soils Analyst Name Role Phone Lincoln Lerma MD Primary Care Provider [phone] Allergies Active Allergy Reactions Criticality Noted Date [...] Encounters Date Type Department Care Team Description 06/16/2025 External Device Data STL ABSTRACTION Provider, Abstract 06/15/2025 External Device Data STL ABSTRACTION Provider, Abstract 05/18/2025 External Device Data STL ABSTRACTION Provider, Abstract 05/11/2025 External Device Data STL ABSTRACTION Provider, Abstract 05/04/2025 External Device Data STL ABSTRACTION Provider, Abstract [...] on file Legal Sex Female 10:51 AM HAIRSPRING INSPECTOR Gender Identity Not on file Sexual Orientation Not on file Last Filed Vital Signs Vital Sign Reading Time Taken Comments Blood Pressure 138/84 03/25/2025 2:06 PM CDT Pulse 114 03/25/2025 2:06 PM CDT Temperature 36.3 C (97.3 F) 03/25/2025 2:06 PM CDT Respiratory Rate 16 03/25/2025 2:06 PM CDT Oxygen Saturation 93% 03/25/2025 2:06 PM CDT Inhaled Oxygen Concentration - - Weight 86.5 kg (190 lb 9.6 oz) 03/25/2025 2:06 P M CDT Height 165.1 cm (5' 5) 09/19/2022 1:25 PM HAIRSPRING INSPECTOR Body Mass Index 31.72 09/19/2022 1:25 PM HAIRSPRING INSPECTOR Plan of Treatment Upcoming Encounters Date Type Department Care Team (Late st Contact Info) Description 12/23/2025 1:00 PM CDT Office Visit [facility] Oncology and Hematology - [place] [address] [facility] [address] [place] [address] Juan Lopez MD [address] [facility] [address] [place] [address] Health Maintenance Due Date Last Done Comments FIT-DNA Q 3 years 1998 FIT/FOBT Q 1 year 1998 Flex Sig/CT Colonography Q 5 years 1998 PNEUMOCOCCAL VACCINE 50+ YEA RS (1 of 1 - PCV) 2003 ZOSTER VACCINE (1 of 2) 2003 OSTEOPOROSIS SCREENING 2018 INFLUENZA VACCINE (#1) 2025 , 05/17/2017, 06/17/2015, Additional history exists COVID-19 Vaccine (3 - 2024-2 6 season) 2025 11/19/2020, 10/25/2020 BREAST CANCER SCREENING 11/02/2025 11/03/19, 11/02/2024, 11/02/2024, Additional history exists RSV VACCINE (60+ or ) (1 - 1-dose 75+ series) 2028 DTAP/TDAP/TD VACCINES (3 - T d or Tdap) 12/02/2031 12/01/2021, 01/10/2014 COLORECTAL SCREENING 04/06/2034 04/06/2024, 04/11/2021, 04/11/2021, Additional history exists Colorectal Cancer Screening 04/06/2034 Insurance MEDICARE PART A AND B [employer]ET[employer] MEDICARE SUPP AESSI Care Teams Soils Analyst Relationship Specialty Start Date End Date Lincoln Lerma MD PCP - General Family Practice 09/19/22
--- OUTSIDE RECORDS SUMMARY | 2025-07-28 14:48 | XMS_ITS | Clinical Summary ---
Author Organization [facility] [email or web address] Address [address] [place] [address] Care Team Providers Care Produce Clerk Name Role Phone Lincoln Lerma MD Primary Care Provider + Lincoln Lerma MD Unavailable [phone] Source Comments [facility] Affiliates and Associated Physician Practices is amultiple site organization consisting of ambulatory clinics and hospital sitesin [place], [place], [place] and [place]. This disclosure is being madepursuant to the Care Everywhere program and may not contain all information available regarding this patient. Last updated 18.[facility] [email or web address] Allergies Active Allergy Reactions Criticality Noted Date Comments Propoxyphene N-Apap Headache Low 12/03/2013 migraine Nitrofurantoin Low 12/03/2013 Chills,fever,N&V Sulfamethoxazole W-Trimethoprim Low 11/24 Mouth sores Hydrocodone-Acetaminophen Headache Low 12/03/2013 migraine Medications * Be aware that medications may not be up to date on this document. Alwaysverify current medications with the patient. atorvastatin (LIPITOR) 20 MG tablet Take 20 [...] drink = 0.6 oz pur e alcohol) Comments Unknown Sex and Gender Information Value Date Recorded Sex Assigned at Not on file Legal Sex Female 1:49 PM CDT Gender Identity Not on file Sexual [...] 6:06 AM CDT Height 165.1 cm (5' 5) 12/03/2013 6:06 AM CDT Body Mass Index 34.95 12/03/2013 6:06 AM CDT Plan of Treatment Health Maintenance Due Date Last Done Comments BONE DENSITY TESTING 1955 COLOGUARD (AGES 45-75) - COL ON CA SCREENING 1953 CT COLONOGRAPHY - COLON CA SCREENING 1955 FIT - COLON CA SCREENING 1955 FLEX SIG - COLON CA SCREENING 1955 MAMMOGRAM 1955 MEDICARE AWV 12 MONTHS 1955 HEPATITIS C SCREENING 04/14/1971 DTAP/TDAP/TD VACCINES (1 - Tdap) 1972 PNEUMOCOCCAL VACCINE 50+ (1 of 1 - PCV) 2003 Respiratory Syncytial Virus (RSV) Vaccine Pt: or over 60 yrs (1 - Risk 50-74 years 1-dose series) 2003 ZOSTER VACCINE (1 of 2) 2003 COLON MONITORING 12/04/2023 12/03/2013, 12/03/2013 COLONOSCOPY - COLON CA SCREENING 12/04/2023 12/03/2013, 12/03/2013 Colorectal Cancer Screening 12/04/2023 DEPRESSION SCREENING 08/26/2024 COVID-19 VACCINE (2024-2 6 season) 2025 INFLUENZA VACCINE (#1) 2025 HEPATITIS B VACCINE Aged Out No longe r eligible based on patient's age to complete this topic HIB VACCINE Aged Out No longer eligi ble based on patient's age to complete this topic HPV VACCINE Aged Out No longer eligi ble based on patient's age to complete this topic MENINGOCOCCAL (Group B) VACCINE SHARED DECISION-MAKING Aged Out No longer eligible based on patient's age to complete this topic MENINGOCOCCAL GROUPS A/C/Y/W VACCINE Aged Out No longer eligible b ased on patient's age to complete this topic Procedures Procedure Name Priority Date/Time Associated Diagnosis Comments ENDOSCOPY, COLON, SCREENING Routine 12/03/2013 5:55 AM CDT from Last 3 Months or Most Recently Relevant to Health Maintenance Results * ENDOSCOPY, COLON, SCREENING (12/03/2013 5:55 AM CDT) Report Endoscopy POC __ _ Patient Name: Maddie Thorpe Procedure Date: 12/03/2013 5:55 AM Date of : 1955 Admit Type: Outpatient Age: 58 Gender: Female Attending MD: George Rajput MD __ _ Procedure: Colonoscopy Indications: Abnormal barium enema Providers: George Rajput MD (Doctor), Lani Rivas RN, Gray Muir, Pot Fisher Referring MD: Lincoln Lerma MD (Referring MD) Medicines: Propofol per Anesthesia Complications: No immediate complications. __ _ Procedure: After I obtained informed consent, the scope was passed under direct vision. Throughout the procedure, the patient's blood pressure, pulse, and oxygen saturations were monitored continuously. The was introduced through the anus and advanced to the terminal ileum. The Colonoscope was introduced through the and advanced to. The colonoscopy was unusually difficult due to significant looping. Successful completion of the procedure was aided by performing the maneuvers documented (below) in this report. The patient tolerated the procedure well. The quality of the bowel preparation was excellent. Impression: - The entire examined colon is normal on direct and retroflexion views. Distal TI normal. Very loopy and difficult exam. Extended exam 39 minutes. Findings: The entire examined colon appeared normal on direct and retroflexion views. Terminal Ileum normal. No masses. polyps, AVM, diverticulosis, colitis __ _ Recommendation: - Repeat colonoscopy in 10 years to screen for colon cancer. - Discharge patient to home. Patient will follow-up with Dr. Lincoln Lerma. Procedure Code(s): --- Professional --- 08520, Colonoscopy, flexible, proximal to splenic flexure; diagnostic, with or without collection of specimen(s) by brushing or washing, with or without colon decompression (separate procedure) --- Technical --- 02115, Colonoscopy, flexible, proximal to splenic flexure; diagnostic, with or without collection of specimen(s) by brushing or washing, with or without colon decompression (separate procedure) Diagnosis Code(s): --- Professional --- 793.4, Nonspecific (abnormal) findings on radiological and other examination of gastrointestinal tract --- Technical --- 793.4, Nonspecific (abnormal) findings on radiological and other examination of gastrointestinal tract CPT copyright 2013 [employer]. All rights reserved. The codes documented in this report are preliminary and upon tool coordinator review may be revised to meet current compliance requirements. __ George Rajput MD 12/03/2013 7:51 AM Number of Addenda: 0 Note Initiated On: 12/03/2013 5:55 AM [facility] ENDOSCOPY 12/03/2013 5:55 AM CDT Narrative [facility] ENDOSCOPY - 12/03/2013 7:52 AM CDT Procedure Note George Rajput MD - 12/03/2013 7:52 AM CDT us George Rajput MD GI PROCEDURE ORDERABLES [facility] Organization Address City/State/[facility] Co de Phone Number [facility] ENDOSCOPY from Last 3 Months or Most Recently Relevant to Health Maintenance Insurance [facility] MEDICARE [employer] SELF PAY NO INSURANCE Member Subscriber Plan / Payer (Ef fective for All Dates) Name:BlackShanita ortegarory Banegas Member ID:Not on file Relation to Subscriber:Not on file Name:MADDIE BLACK Subscriber ID:Not on file (Home) Address: [address] [place] [id number] Payer ID:Not on file Group ID:Not on file Type:Self Pay Address: [place], [place] MEDICARE AETNA Care Teams Produce Clerk Relationship Specialty Start Date End Date Lincoln Lerma MD [address] [address] PCP - General 03/17/20 Lincoln Lerma MD [address] [address] Family Medicine 03/17/20
--- OUTSIDE RECORDS SUMMARY | 2025-07-28 14:48 | XMS_ITS | Clinical Summary ---
Author Organization [facility] Address [address] [place] [address] Care Team Providers Care Manager Card Name Role Phone Lincoln Lerma MD Primary Care Provider [phone] Allergies Active Allergy Reactions Criticality Noted Date [...] the provider Active neomycin-polymy sveta-hydrocortis one (CORTISPORIN) 3.5-71160-7 otic suspension neomycin-polymyx in-hydrocort 3.5 mg-10,000 unit/mL-1 [...] other means 06/15/2021 Osteoarthrosis 06/15/2021 Pulmonary embolus 06/14/2021 Resolved Problems Problem Noted Date Diagnosed Date Resolved Date Sepsis 06/15/2021 06/18/2021 Immunizations Immunization Administration Dates Next Due Fluzone High Dose [...] 91 03/16/2022 9:25 AM CDT Temperature 35.9 C (96.7 F) 03/16/2022 9:25 AM CDT Respiratory Rate 18 12/01/2021 10:03 PM CDT Oxygen Saturation 93% 03/16/2022 9:25 AM CDT Inhaled Oxygen Concentration - - Weight 91.2 kg (201 lb 1.6 oz) 03/16/2022 9:25 A M CDT Height 165.1 cm (5' 5) 12/01/2021 6:05 PM CDT Body Mass Index 33.46 12/01/2021 6:05 PM CDT Plan of Treatment Health Maintenance Due Date Last Done Comments Colorectal Cancer Screening Colonoscopy (10 Years) 1953 Hepatitis C 1971 Mammogram Screening 1993 Pneumococcal Vaccine: 50+ Years (1 of 1 - PCV) 2003 Zoster Vaccines (1 of 2) 2003 Annual Medicare Wellness Visit 2018 Dexa Scan (General) 2018 COVID-19 Vaccine ( - season) 2025 05/31/2021, 11/19/2020, 10/25/2020 Influenza Adult (#1) 2025 05/20/2020, 05/17/2017, 05/17/2017, Additional history exists RSV Immunization or 60+ Years (1 - 1-dose 75+ series) 2028 DTaP, Tdap and Td Vaccines (3 - Td or Tdap) 12/02/2031 12/01/2021, 01/10/2014 Hepatitis A Vaccines Aged Out No long er eligible based on patient's age to complete this topic Meningococcal B Vaccine Aged Out No l [...] Regular Follow-Ups with PCP General Heaven Butler, [facility] - patient able to perform ADLs independently General Heaven Butler RN Medical Devices Implanted Type Area Medical Staff Services Manager Device Identifier Shelf Expiration Date Model / Serial / Lot Stent Ureteral [place] Sci Contour 6fr X 24cm - [id number] Implanted:Qty : 1 on 07/06/2021 by Delvin Gorodn MD at [facility] Stent Right: Ureter [employer] [id number] 03/21/2024 [id number] / / [id number] Explanted Type Area Medical Staff Services Manager Device Identifier Shelf Expiration Date Model / Serial / Lot Stent Ureteral [place] Sci Contour 6fr X 26cm - [id number] Implanted:Qty : 1 on 06/15/2021 by Delvin Gordon MD at [facility] Explanted:Qty : 1 on 07/06/2021 at [facility] Stent Right: Urinary Bladder [employer] [id number] 03/21/2024 [id number] Insurance MEDICARE AET[employer] Advance Directives * Full Code (Latest Code Status on File) Date Activated Date Inactivated Comments 06/14/2021 10:34 PM 06/18/2021 5:15 PM Care Teams Manager Card Relationship Specialty Start Date End Date Lincoln Lerma MD [address] [address] PCP - General FAMILY PRACTICE 06/14/21
--- OUTSIDE RECORDS SUMMARY | 2025-07-28 14:48 | XMS_ITS | Encounter Summary ---
Author Organization [facility] Address [address] [place] [address] Care Team Providers Care Sales Route Driver Helper Name Role Phone Lincoln Lerma MD Primary Care Provider + Lincoln Lerma MD Unavailable [phone] Encounter Details Date Type Department Care Team (Late st Contact Info) Description 03/18/2020 Lab Requisition [facility] Care DermPath Lab [address] [facility] [place] [id number] Trina Goldsmith MD [address] [place] [address] Social History Tobacco Use Types Packs/Day Years [...] 12:00 AM CDT) Case Report Dermatopathology Report Case: [id number] Authorizing Provider: Trina Goldsmith MD Collected: 03/17/2020 12:00 AM Ordering Location: [facility] DermPath Lab Received: 03/18/2020 09:22 AM Pathologist: Barbara Meek MD Specimen: Skin, right ant scalp/hairline 0 1:49 PM CDT DERMATOPATHOLOGY LABORATORY Final Diagnosis Specimen A. SKIN, right ant scalp/hairline: BASAL CELL CARCINOMA, INFILTRATIVE PATTERN (C44.41) 0 1:49 PM CDT DERMATOPATHOLOGY LABORATORY at 1349 CDT Clinical History R/O SCC, irritated. 0 1:49 PM CDT DERMATOPATHOLOGY LABORATORY Gross Description Specimen A: Received is one formalin filled container labeled with the patient's name and designated right ant scalp/hairline. The specimen consists of a shave (2 pieces) measuring 20o1o5qi & 2c9e0dn. Jar 0. 0 1:49 PM CDT DERMATOPATHOLOGY [...] characteristic determined by the Dermatopathology Laboratory at [facility], directed by Dr. Umang Casanova. These tests need not be, and therefore are not, approved by the [place] Food and Drug Administration. The tests are used for clinical purposes. Billing Codes Specimen Charges Stain Charges 48872 1 0 1:49 PM CDT DERMATOPATHOLOGY LABORATORY Embedded Images 0 1:49 PM CDT DERMATOPATHOLOGY LABORATORY Pathology/Cytolog y TISSUE SPECIMEN FROM SKIN / Unknown 03/17/2020 03/18/2020 9:22 AM CDT Trina Goldsmith MD LAB - PATHOLOGY/CYTOLOGY OR DERABLES Final Result DERMATOPATHOLOGY LABORATORY [facility] - Department of Dermatology Respiratory Coordinator Center/[facility] [address] [phone] documented in this encounter Visit Diagnoses Not on filedocumented in this encounter Care Teams Sales Route Driver Helper Relationship Specialty Start Date End Date Lincoln Lerma MD [address] [address] PCP - General 03/17/20 Lincoln Lerma MD [address] [address] Family Medicine 03/17/20 documented as of this encounter
--- OUTSIDE RECORDS SUMMARY | 2025-07-28 14:48 | XMS_ITS | Clinical Summary ---
Author Organization [facility] [address] Address [address] [place] [address] Care Team Providers Care Circular Tank Cooper Name Role Phone Lincoln Lerma MD Primary Care Prov ider Allergies Active Allergy Reactions Criticality Noted Date Comments Acetaminophen Headache Low 10/06/2013 Headache Hydrocodone Headache Low 10/06/2013 Headache Hydrocodone-Acetaminophen Headache Low 12/03/2013 migraine Nitrofurantoin Swelling Medium 10/12/2013 Swelling Chills,fever,N&V Propoxyphene Headache Low 12/03/2013 migraine Sulfa (Sulfonamide Antibiotics) Unknown 03/31/2021 Pt states she had mouth sores Sulfamethoxazole-Trimethoprim Unknown Low 2013 Mouth sores Medications atorvastatin (LIPITOR) 40 mg tablet Take 40 mg by mouth daily Active buPROPion XL (WELLBUTRIN XL) 300 mg 24 hr tablet bupropion HCl XL 300 mg 24 hr tablet, extended release Active busPIRone (BUSPAR) 10 mg tablet buspirone 10 mg tablet Active cholecalciferol (VITAMIN D-3) 25 mcg (1,000 unit) tablet Take 1,000 Units by mouth daily Active cyanocobalamin (Vitamin B-12) 1,000 mcg tablet Take 1,000 mcg by mouth daily Active escitalopram (LEXAPRO) 20 mg tablet escitalopram 20 mg tablet Active pantoprazole DR (PROTONIX) 40 mg EC tablet pantoprazole 40 mg tablet,delayed release Active apixaban (ELIQUIS) 5 mg tablet 5 mg Active metoclopramide (REGLAN) 10 mg tablet Take 10 mg by mouth 4 (four) times a day Active fenofibrate (TRIGLIDE) 160 mg tablet Take 160 mg by mouth daily Active furosemide (LASIX) 40 mg tablet Take 40 mg by mouth daily Active nitroglycerin (NITROSTAT) 0.[address] 0.4 mg under the tongue every 5 (five) minutes as needed Active oxybutynin XL (DITROPAN XL) 15 mg 24 hr tablet Take 15 mg by mouth daily Active Active Problems Problem Noted Date Diagnosed Date Acute deep vein thrombosis (DVT) of right poplit eal vein 08/17/2021 Assessment & Plan (08/17/2021 9:47 AM CHEMISTRY TECHNICAL OFFICER): Impression: 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 She has had no ongoing problems regarding her DVT and is currently on oral anticoagulation Plan: I discussed with the patient that she has a non retrievable IVC filter. Continue daily NOAC as per her PCP. No further vascular surgical workup per intervention needed. Patient follow-up on as-needed basis. Mixed hyperlipidemia 08/17/2021 Assessment & Plan (08/17/2021 9:47 AM CHEMISTRY TECHNICAL OFFICER): Impression: Stable chronic hyperlipidemia. Plan: Medications reviewed I recommend continuing daily statin regimen as directed by patient's primary care physician. Disorder of shoulder 08/03/2021 Enthesopathy of hip region 08/03/2021 Osteoarthritis 08/03/2021 Nephrolithiasis 06/18/2021 Joint replaced by other means 06/15/2021 Pulmonary embolus 06/14/2021 Immunizations Immunization Administration Dates Next Due Influenza, Quadrivalent, Hig h Dose, Preservative Free, Intrr 05/20/2020 Influenza, Trivalent, IM (MDV) 05/17/2017,2013 Influenza, Trivalent, Preservative Free, Intramu scular 06/17/2015 Pfizer SARS-CoV-2 Monovalent Vaccination (12+ Yrs) PURPLE 11/19/2020,10/25/2020 Tdap 01/10/2014 Surgical History Surgery Date Site/Laterality Comments HYSTERECTOMY 08/26/1984 - 08/25/1985 total OOPHORECTOMY 08/26/1984 - 08/25/1985 Bilateral Medical History Medical History Date Comments Pulmonary embolism Osteoarthrosis Nephrolithiasis Family History Medical History Relation Name Comments Diabetes Father No Known Problems Mother Relation Name Status Comments Father Mother Social History Tobacco Use Types Packs/Day Years Used Date Smoking Tobacco: Never Comments No Sex and Gender Information Value Date Recorded Sex Assigned at Not on file Legal Sex Female 5:34 AM CHEMISTRY TECHNICAL OFFICER Gender Identity Not on file Sexual Orientation Not on file Obstetrics History Para Term AB IAB SAB Ectopic Multiple Livin g Live Births Date Outcome GA Total Labor Labor/09/28 Weight Sex Type Anes PTL Suma A1 A5 Name Clin Term Last Filed Vital Signs Vital Sign Reading Time Taken Comments Blood Pressure 129/74 08/09/2021 12:48 PM CHEMISTRY TECHNICAL OFFICER Pulse 87 08/09/2021 12:48 PM CHEMISTRY TECHNICAL OFFICER Temperature 36.5 C (97.7 F) 10/06/2013 2:39 PM CHEMISTRY TECHNICAL OFFICER Respiratory Rate - - Oxygen Saturation 97% 10/06/2013 2:39 PM CHEMISTRY TECHNICAL OFFICER Inhaled Oxygen Concentration - - Weight 95.3 kg (210 lb) 08/09/2021 12:48 PM CHEMISTRY TECHNICAL OFFICER Height 165.1 cm (5' 5) 08/09/2021 12:48 PM CHEMISTRY TECHNICAL OFFICER Body Mass Index 34.95 08/09/2021 12:48 PM CHEMISTRY TECHNICAL OFFICER Plan of Treatment Health Maintenance Due Date Last Done Comments Colon Cancer Screening-Colonoscopy 1955 Depression Screening 1955 Fall Risk Assessment 1955 Hepatitis C Screening 1955 Osteoporosis Screening-Bone Density Scan 1953 Hepatitis B Screening 1971 Pneumococcal vaccine 65+ (1 of 1 - PCV) 2003 Zoster Vaccine (1 of 2) 2003 Well Visit 65+ 2018 Covid-19 Vaccine (3 - 2024-2 6 season) 2025 11/19/2020, 10/25/2020 Influenza Vaccine (#1) 2025 , 05/17/2017, 06/17/2015, Additional history exists Breast Cancer Screening-Mammogram 11/02/2025 11/02/2024, 10/09/2023, 08/07/2022, Additional history exists DTaP/Tdap/Td Vaccine (3 - Td or Tdap) 12/02/2031 12/01/2021, 01/10/2014 Procedures Procedure Name Priority Date/Time Associated Diagnosis Comments SCREENING MAMMOGRAM BILATERAL W IAN Schedule Routine, Read Routine (OP Routine) 11/02/2024 1:27 PM CDT Screening mammogram, encounter for from Last 3 Months or Most Recently Relevant to Health Maintenance Results * Screening Mammogram Bilateral W Ian (11/02/2024 1:27 PM CDT) Anatomical Region Laterality Modality Breast Bilateral Mammography Impressions 11/02/2024 1:30 PM CDT BI-RADS ATLAS category (overall): 2 - Benign There is no mammographic evidence of malignancy. A 1 year screening mammogram is recommended. The patient has been or will be contacted. We recommend annual screening mammography for women at average risk of breast cancer beginning at age 40, based on guidelines of the [employer] (ACR Practice Parameter for the Performance of Screening and Diagnostic Mammography) and [employer]. For women with and elevated risk of breast cancer, please refer to the ACR Practice Parameter for specific screening recommendations. The patient will be entered into a reminder system with a target due date of 1 year for her next screening exam. Narrative 11/02/2024 1:30 PM CDT Screening Mammogram Bilateral W Ian: 11/02/24 The study was acquired using full field digital technology and interpreted from soft copy. 2D digital mammographic views, as well as 3D digital tomosynthesis were performed in the CC and MLO projections. CLINICAL: Screening mammogram, encounter for No relevant medical history has been documented for this patient. No known family history of breast cancer. COMPARISONS: 10/09/2023 Screening Mammogram Bilateral W Ian 08/07/2022 Screening Mammogram Bilateral W Ian BREAST TISSUE: The breasts are almost entirely fatty. FINDINGS: There are unchanged benign microcalcifications in both breasts. There is no new suspicious finding in either breast on mammogram. us Self Screening Mammogram IMG MAMMO PROCEDURES Fi nal Result from Last 3 Months or Most Recently Relevant to Health Maintenance Insurance MEDICARE [facility] SENIOR SUPPLEMENT MEDICARE AETNA SENIOR SUPPLEMENT Care Teams Circular Tank Cooper Relationship Specialty Start Date End Date Lincoln Lerma MD PCP - General 11/21/18
== END 2025-07-28 13:36 | disposition home or self-care (01) ==
PROVIDERS: PCP Family Medicine; Visit Provider Family Medicine
DX: E83.52 Hypercalcemia (principal)
CPT/HCPCS: 36415; 82306

== ENCOUNTER 2025-08-24 16:25 | Outpatient (CLI) | payer MEDICARE, SELFPAY ==
--- NOTE | ~2025-08-24 | XR_ITS ---
XR chest 2V 08/24/2025 16:44 Indication: Hypercalcemia Procedure: 2 view chest Comparison: Comparison to multiple prior studies sequentially, with oldest reviewed study dated 06/27/2019. Findings: Heart size normal. No focal air space disease, pulmonary edema, pleural effusion or suspected pneumothorax. No acute osseous abnormality. Impression: 1: No acute cardiopulmonary disease. Reviewed, dictated and finalized at location O. HIC MANAGER Impression: 1: No acute cardiopulmonary disease.
--- OUTSIDE RECORDS SUMMARY | 2025-08-24 16:31 | XMS_ITS | Clinical Summary ---
Author Organization [facility] Address [address] [place] [address] Care Team Providers Care Link Trainer Teacher Name Role Phone Pcp, Gisselle Primary Care Provider [phone] Social History Tobacco Use Types Packs/Day Years Used Date Smoking Tobacco: Never Assessed Comments Unknown Sex and Gender Information Value Date Recorded Sex Assigned at Not on file Legal Sex Female 9:18 AM EDT Gender Identity Not on file Sexual Orientation Not on file Plan of Treatment Not on file Medical Devices Not on file Care Teams Link Trainer Teacher Relationship Specialty Start Date End Date PcpGisselle PCP - General Family Medicine 04/20/21
--- OUTSIDE RECORDS SUMMARY | 2025-08-24 16:31 | XMS_ITS | Encounter Summary ---
Author Organization [facility] Address [address] [place] [address] Care Team Providers Care Binder Caser Name Role Phone Lincoln Lerma MD Primary Care Provider [phone] Reason for Visit * Reason Comments Med Refill Encounter Details Date Type Department Care Team (Late Contact Info) Description 08/23/2025 Refill [facility] Oncology and Hematology - [place] [place] [address] Juan Lopez MD [address] [place] [phone] Secondary hypercoagulable state Social History Tobacco Use Types Packs/Day Years Used Date Smoking Tobacco: Never Smokeless Tobacco: Never Alcohol Use Standard Drinks/Week Comments Yes 0 (1 standard drink = 0.6 oz pur e alcohol) socially Comments Unknown Sex and Gender Information Value Date Recorded Sex Assigned at Not on file Legal Sex Female 10:51 AM GAMBLING BROKER Gender Identity Not on file Sexual Orientation Not on file documented as of this encounter Plan of Treatment Upcoming Encounters Date Type Department Care Team (Late Contact Info) Description 12/23/2025 1:00 PM CDT Office Visit [facility] Oncology and Hematology - [place] [place] [address] Juan Lopez MD [address] [place] [address] documented as of this encounter Visit Diagnoses Diagnosis Secondary hypercoagulable state documented in this encounter Care Teams Binder Caser Relationship Specialty Start Date End Date Lincoln Lerma MD PCP - General Family Practice 09/19/22 documented as of this encounter
--- OUTSIDE RECORDS SUMMARY | 2025-08-24 16:31 | XMS_ITS | Clinical Summary ---
Author Organization [facility] [place] Address [address] [place] [address] Care Team Providers Care Metal Pourer Name Role Phone Lincoln Lerma MD Primary Care Provider [phone] Allergies Active Allergy Reactions Criticality Noted Date Comments Acetaminophen Headache Low 10/06/2013 Headache Hydrocodone Headache Low 10/06/2013 Headache Headache Hydrocodone-Acetaminophen Headache Low 12/03/2013 migraine migraine migraines Nitrofurantoin Nausea and Vomiting,Swelling Medium 10/12/2013 Chills,fever,N&V Swelling Chills,fever,N&V Chills,fever,N&V Propoxyphene Headache Low 12/03/2013 migraine migraine Sulfa (Sulfonamide Antibiotics) Other (See Comments) Medium 06/14/2021 Sores in mouth Medications albuterol sulfate HFA 90 mcg/actuation aerosol inhaler 022 Active Eliquis 5 mg tablet 023 Active atorvastatin (LIPITOR) 40 mg tablet 023 Active Symbicort 160-4.5 mcg/actuation HFA Aerosol Inhaler 022 Active buPROPion HCL (WELLBUTRIN XL) 150 mg Extended Release 24 hour tablet TAKE 3 TABLETS BY MOUTH EVERY MORNING Active busPIRone (BUSPAR) 10 mg tablet Active DULoxetine (CYMBALTA) 60 mg Capsule, Delayed Release(E.C.) Take 60 mg by mouth daily. 12/05/2 022 Active fenofibrate (LOFIBRA) 160 mg Tablet 023 Active metoclopramide HCl (REGLAN) 10 mg tablet 022 Active nitroglycerin (NITROSTAT) 0.4 mg Tablet, Sublingual [...] daily. Active folic acid (FOLVITE) 1 mg tabletIndications: Secondary hypercoagulable state TAKE 1 TABLET EVERY DAY 90 Tablet 3 025 Active folic acid (FOLVITE) 1 mg tabletIndications: Secondary hypercoagulable state Take 1 Tablet (1 mg) by mouth daily. 90 Tablet 3 024 2024 Discontinued Active Problems No known active problems Encounters Date Type Department Care Team Description 08/23/2025 Refill [facility] H[facility]ology - [place] [address] [place] [id number] Juan Lopez MD Secondary hypercoagulable state 06/16/2025 External Device Data ST[facility] ABSTRACTION Provider, [...] on file Legal Sex Female 10:51 AM CHEMICAL DEPENDENCY COUNSELOR Gender Identity Not on file Sexual Orientation [...] 165.1 cm (5' 5) 09/19/2022 1:25 PM CHEMICAL DEPENDENCY COUNSELOR Body Mass Index 31.72 09/19/2022 1:25 PM CHEMICAL DEPENDENCY COUNSELOR Plan of Treatment Upcoming Encounters Date Type Department Care Team (Late st Contact Info) Description 12/23/2025 1:00 PM CDT Office Visit [facility] H[facility]ology - [place] [address] [facility] [address] [place] [address] Juan Lopez MD [address] [facility] [address] [place] [address] Health Maintenance Due Date Last [...] B [employer] MEDICARE SUPP AESSI Care Teams Metal Pourer Relationship Specialty Start Date End Date Lincoln Lerma MD PCP - General Family Practice 09/19/22
--- OUTSIDE RECORDS SUMMARY | 2025-08-24 16:31 | XMS_ITS | Clinical Summary ---
Author Organization [facility] [place] [address] Address [address] [place] [address] Care Team Providers Care Red Hat Linux Engineer Name Role Phone Lincoln Lerma MD Primary [...] 08/17/2021 Assessment & Plan (08/17/2021 9:47 AM AGRICULTURAL AIRCRAFT PILOT): Impression: Patient with history of lower extremity [...] 08/17/2021 Assessment & Plan (08/17/2021 9:47 AM AGRICULTURAL AIRCRAFT PILOT): Impression: Stable chronic hyperlipidemia. Plan: Medications reviewed [...] on file Legal Sex Female 5:34 AM AGRICULTURAL AIRCRAFT PILOT Gender Identity Not on file Sexual Orientation Not on file Obstetrics History Para Term AB IAB SAB Ectopic Multiple Livin g Live Births Date Outcome GA Total Labor Labor/09/28 Weight Sex Type Anes PTL [place] A1 A5 Name Clin Term Last Filed Vital Signs Vital Sign Reading Time Taken Comments Blood Pressure 129/74 08/09/2021 12:48 PM AGRICULTURAL AIRCRAFT PILOT Pulse 87 08/09/2021 12:48 PM AGRICULTURAL AIRCRAFT PILOT Temperature 36.5 C (97.7 F) 10/06/2013 2:39 PM AGRICULTURAL AIRCRAFT PILOT Respiratory Rate - - Oxygen Saturation 97% 10/06/2013 2:39 PM AGRICULTURAL AIRCRAFT PILOT Inhaled Oxygen Concentration - - Weight 95.3 kg (210 lb) 08/09/2021 12:48 PM AGRICULTURAL AIRCRAFT PILOT Height 165.1 cm (5' 5) 08/09/2021 12:48 PM AGRICULTURAL AIRCRAFT PILOT Body Mass Index 34.95 08/09/2021 12:48 PM AGRICULTURAL AIRCRAFT PILOT Plan of Treatment Health Maintenance Due Date [...] age 38, based on guidelines of the [employer] (ACR Practice Parameter for the Performance of Screening and Diagnostic Mammography) and [employer]. For women [...] Recently Relevant to Health Maintenance Insurance MEDICARE [facility] SENIOR SUPPLEMENT MEDICARE [employer] SENIOR SUPPLEMENT Care Teams Red Hat Linux Engineer Relationship Specialty Start Date End Date Lincoln Lerma MD PCP - General 11/21/18
== END 2025-08-24 16:26 | disposition home or self-care (01) ==
PROVIDERS: PCP Family Medicine; Visit Provider Family Medicine
DX: E83.52 Hypercalcemia (principal)
CPT/HCPCS: 71046